=== PATIENT | female | born 1960 | race Caucasian/White ===

== ENCOUNTER → 2020-05-13 10:25 | Outpatient (BNVA) | payer MEDICAID, SELFPAY | PROVIDERS: PCP Nurse Practitioner Family; Referring Provider Nurse Practitioner Family; Visit Provider Anesthesiology | DX: G89.4 Chronic pain syndrome (principal); M17.0 Bilateral primary osteoarthritis of knee | CPT/HCPCS: 99213 ==

== ENCOUNTER 2020-05-20 11:00 | Outpatient (REF) | payer MEDICAID, SELFPAY ==
--- NOTE | 2020-05-20 11:10 | XR_ITS ---
EXAMINATION: XR FOOT, LEFT CLINICAL INFORMATION: Left heel pain COMPARISON: None TECHNIQUE: AP, lateral, and oblique views of the left foot. FINDINGS: Osseous mineralization is normal. There is no evidence of focal erosion. Prominent plantar and posterior calcaneal spurs are noted. The bones and joints are otherwise unremarkable. No evidence of acute fracture or dislocation. No evidence of soft tissue calcifications. IMPRESSION: Prominent left calcaneal spurs. No acute osseous abnormality in the left foot.
== END 2020-05-20 11:01 | disposition home or self-care (01) ==
LOC: HO.XRAY 11:00
PROVIDERS: Visit Provider Podiatrist
DX: M79.672 Pain in left foot (principal)
CPT/HCPCS: 73630

== ENCOUNTER 2020-06-23 05:29 | Outpatient (REF) | payer MEDICAID, SELFPAY ==
--- NOTE | 2020-06-23 07:28 | FL_ITS ---
EXAMINATION: XR FLUOROSCOPY WITH IMAGES CLINICAL INFORMATION: Primary osteoarthritis of the knee. COMPARISON: 01/11/2019 TECHNIQUE: Fluoroscopy performed by Dr. Arenas. Fluoroscopy time: 0.1 minutes DAP: 1.39 Gycm2 Images: 2 FINDINGS: Imaging of the left knee. There are 2 radiopaque needles projecting over the distal femur. There is a single radiopaque needle projecting over the proximal tibia. Degenerative changes are noted at the knee. FL/FL guidance in treatment room IMPRESSION: Fluoroscopic guidance for intervention at the left knee. Please refer to procedural report for further information.
== END 2020-06-23 05:30 | disposition home or self-care (01) ==
LOC: HO.RADIR 05:29
PROVIDERS: Visit Provider Anesthesiology
DX: M17.0 Bilateral primary osteoarthritis of knee (principal)
CPT/HCPCS: 64454

== ENCOUNTER → 2020-06-29 13:39 | Outpatient (BNVA) | payer MEDICAID, SELFPAY | PROVIDERS: PCP Internal Medicine; Visit Provider Anesthesiology | DX: Z76.89 Persons encountering health services in other specified circumstances (principal) | CPT/HCPCS: 99212 ==

== ENCOUNTER 2020-07-14 07:00 | Outpatient (REF) | payer MEDICAID, SELFPAY ==
--- NOTE | 2020-07-14 07:36 | FL_ITS ---
EXAMINATION: XR FLUOROSCOPY WITH IMAGES CLINICAL INFORMATION: Unilateral primary osteoarthritis left knee COMPARISON: None. TECHNIQUE: Fluoroscopy performed by Louann Arenas NP. Fluoroscopy time: 0.2 minutes DAP: 6 1.59 Gycm2 Images: 2 FINDINGS: There are 2 needles medial and lateral to the distal femur and a solitary needle along the medial proximal tibial cortex for pain management purposes. There is moderate loss of tricompartment joint space with moderate periarticular spurring. The soft tissues are normal. FL/FL guidance in treatment room IMPRESSION: Fluoroscopy was provided for pain management Department for left knee treatment.
== END 2020-07-14 07:01 | disposition home or self-care (01) ==
LOC: HO.RADIR 07:00
PROVIDERS: Visit Provider Anesthesiology
DX: M17.12 Unilateral primary osteoarthritis, left knee (principal)
CPT/HCPCS: J3300

== ENCOUNTER → 2020-08-19 11:20 | Outpatient (BNVA) | payer MEDICAID, SELFPAY | PROVIDERS: PCP Nurse Practitioner Family; Visit Provider Anesthesiology | DX: M17.12 Unilateral primary osteoarthritis, left knee (principal) | CPT/HCPCS: 99212 ==

== ENCOUNTER 2020-10-01 09:07 | Outpatient (REF) | payer MEDICAID, SELFPAY ==
--- NOTE | 2020-10-01 10:00 | EMG_ITS ---
Bilateral tibial and peroneal motor and sensory studies were performed. Bilateral sural sensory studies were performed. Tibial H reflexes were obtained and paraspinal muscles were tested. IMPRESSION: Other than mild right nonlocalizing peroneal motor neuropathy, no significant finding was noted on this study. MD JOSE Rodriges/NAZ / [id number]
== END 2020-10-01 09:08 | disposition home or self-care (01) ==
LOC: HO.NEURO 09:07
PROVIDERS: Visit Provider Anesthesiology
DX: R29.898 Other symptoms and signs involving the musculoskeletal system (principal)
CPT/HCPCS: 95886; 95911

== ENCOUNTER → 2020-10-14 08:29 | Outpatient (BNVA) | payer MEDICAID, SELFPAY | PROVIDERS: PCP Nurse Practitioner Family; Visit Provider Anesthesiology | DX: M17.12 Unilateral primary osteoarthritis, left knee (principal); G89.4 Chronic pain syndrome; R29.898 Other symptoms and signs involving the musculoskeletal system; Z79.899 Other long term (current) drug therapy | CPT/HCPCS: 99212 ==

== ENCOUNTER 2020-10-28 09:48 | Outpatient (REF) | payer MEDICAID, SELFPAY ==
--- NOTE | ~2020-10-28 | US_ITS ---
EXAMINATION: NONINVASIVE ASSESSMENT OF THE ARTERIES OF BOTH LOWER EXTREMITIES WITH PVR EXAM AND BILATERAL LOWER EXTREMITY DUPLEX CLINICAL INFORMATION: Other symptoms and signs involving the musculoskeletal system TECHNIQUE: Bilateral duplex Doppler techniques with wave form analysis and measurement of velocities in the common femoral, profunda femoral, superficial femoral, popliteal and tibial arteries. The study was performed only at rest. COMPARISON: None FINDINGS: a) AT REST: RIGHT LEG: Right direct duplex Doppler findings: * Common femoral artery: 143 cm/s, Diastolic flow reversal: Yes * Superficial femoral artery (proximal, mid, distal): 110, 135 and 90 cm/s, Diastolic flow reversal: Yes * Popliteal artery: 44 cm/s, Diastolic flow reversal: Yes * Posterior tibial artery: The cm/s, Diastolic flow reversal: No. Biphasic. LEFT LEG: Left direct duplex Doppler findings: * Common femoral artery: 130 cm/s, Diastolic flow reversal: Yes * Superficial femoral artery (proximal, mid, distal): 108, 112 and 98 cm/s, Diastolic flow reversal: Yes * Popliteal artery: 100 cm/s, Diastolic flow reversal: Yes * Posterior tibial artery: 64 cm/s, Diastolic flow reversal: Yes US/US arterial duplex LE BI IMPRESSION: There is no evidence of any hemodynamically significant lower extremity arterial disease by duplex Doppler criteria at rest. There is a loss of normal triphasic waveform in the right posterior tibial artery. The exam is otherwise unremarkable.
== END 2020-10-28 09:49 | disposition home or self-care (01) ==
LOC: HO.US 09:48
PROVIDERS: Visit Provider Anesthesiology
DX: I73.9 Peripheral vascular disease, unspecified (principal); R29.898 Other symptoms and signs involving the musculoskeletal system
CPT/HCPCS: 93925

== ENCOUNTER → 2020-11-18 14:25 | Outpatient (BNVA) | payer MEDICAID, SELFPAY | PROVIDERS: PCP Nurse Practitioner Family; Visit Provider Anesthesiology ==

== ENCOUNTER 2020-12-01 14:40 | Outpatient (REF) | payer MEDICAID, SELFPAY ==
--- NOTE | ~2020-12-01 | MR_ITS ---
EXAMINATION: MR LUMBAR SPINE WITHOUT CONTRAST CLINICAL INFORMATION: Spondylosis. Bilateral leg pain, numbness, weakness. COMPARISON: None TECHNIQUE: MRI of the lumbar spine was obtained using routine sequences without contrast. FINDINGS: VERTEBRAL BODIES AND PARASPINAL STRUCTURES: Normal vertebral body alignment. The lumbar lordosis is maintained. No acute fracture or subluxation. No loss of vertebral body height. Loss of intervertebral disc height with disc desiccation at T12-L1 and L1-L2. The remaining intervertebral disks are well hydrated. No abnormal marrow signal to suggest acute osseous injury. The visualized paraspinal soft tissues are unremarkable. CONUS MEDULLARIS AND CAUDA EQUINA: Normal, terminating at the level of the L1-L2 intervertebral disc. SPINAL LEVELS: T12-L1: Small posterior central disc protrusion without significant central canal or neural foraminal stenosis. L1-L2: Mild broad-based disc bulge, asymmetric to the left with mild bilateral facet arthropathy and thickening of ligamentum flavum. No significant central canal or neural foraminal stenosis. L2-L3: No significant disc bulge. No central canal or neural foraminal stenosis. L3-L4: No significant disc bulge. No central canal or neural foraminal stenosis. L4-L5: No significant disc bulge. Prominent bilateral facet arthropathy without significant central canal or neural foraminal stenosis. L5-S1: No significant disc bulge. Prominent bilateral facet arthropathy with mild left neural foraminal stenosis. MR/MR lumbar spine wo con IMPRESSION: 1. Mild degenerative disc disease at T12-L1 and L1-L2 with small disc bulges. No significant central canal or neural foraminal stenosis. 2. L5-S1 prominent bilateral facet arthropathy with mild left neural foraminal stenosis.
== END 2020-12-01 14:41 | disposition home or self-care (01) ==
LOC: HO.MRI 14:40
PROVIDERS: Visit Provider Anesthesiology
DX: M47.816 Spondylosis without myelopathy or radiculopathy, lumbar region (principal)
CPT/HCPCS: 72148

== ENCOUNTER → 2020-12-24 14:18 | Outpatient (BNVA) | payer MEDICAID, SELFPAY | PROVIDERS: PCP Nurse Practitioner Family; Visit Provider Anesthesiology | DX: M17.12 Unilateral primary osteoarthritis, left knee (principal); M47.816 Spondylosis without myelopathy or radiculopathy, lumbar region; G89.4 Chronic pain syndrome; R29.898 Other symptoms and signs involving the musculoskeletal system | CPT/HCPCS: 99212 ==

== ENCOUNTER → 2021-02-17 10:48 | Outpatient (BNVA) | payer MEDICAID, SELFPAY | PROVIDERS: PCP Nurse Practitioner Family; Visit Provider Anesthesiology | DX: R29.898 Other symptoms and signs involving the musculoskeletal system (principal); G89.4 Chronic pain syndrome; M47.816 Spondylosis without myelopathy or radiculopathy, lumbar region; M17.12 Unilateral primary osteoarthritis, left knee | CPT/HCPCS: 99212 ==

== ENCOUNTER 2021-03-01 10:00 | Outpatient (RCR) | payer MEDICAID, SELFPAY ==
--- NOTE | 2021-01-27 11:07 | MHC.PT.EP ---
[facility] [place] Office [place] Office [place] Office [address] Oksana Blackwell [address] [phone] F: [phone] F: [phone] F: [phone] F: [phone] Physical Therapy Plan of Care Date of Evaluation: Date of Surgery: NA Diagnosis: SPONDYLOSIS LUMBAR REGION CHRONIC PAIN SYNDROME OA B KNEES Assessment: Pt IS 60 YO F REFERRED TO PT FROM DR SAUCEDO WITH CHRONIC PAIN SYNDROME, LUMBAR SPONDYLOSIS, AND KNEE PAIN. PRESENTS WITH INDICATORS OF PSYCHOSOMATIC SXS (SIGNIF LIMP/ANTALGIC GT PATTERN WITH SEEMINGLY INABLILITY TO BEND KNEES BUT ABLE TO IMPROVE WITH ED RE ABILITY TO BEND KNEES WHEN SITTING, BUT THEN SIGNIF LIMITATION IN L KNEE FLEX (45 DEGREES) IN SUP, ALSO LIMITED TRUNK ROTATION WHEN BEING EVALUATED, BUT NOTED TO TWIST AT LSPINE MOVING WW). Pt REPORTS HER SON HELPS HER WITH ADLS (?NEED FOR TICKET SPECULATOR...SHE REPORTS WORKING ON THIS/DISABILITY). Pt MAY HAVE SOME BENEFIT FROM PT TO HELP IMPROVE OVERALL STRENGTH AND FLEXIBILITY. HOWEVER, IF MUCH OF HER SXS ARE PSYCHOSOMATIC IN NATURE, SHE MAY NOT HAVE SIGNIF BENEFIT FROM PT. Frequency and Duration: The patient will be seen 2X/WK X 6 WKS (MD RECOMMENDED 12 VISITS) Short Term Goals: 1. NORMALIZED GT PATTERN (LESS LIMP) WITH LRAD 2. I HEP WITH DC EX PLAN Shelter Goals: 1. DECREASED LB AND KNEE PAIN AT LEAST 50% WITH ADLS 2. INCREASED ROM B KNEE TO AT LEAST 100 DEGREES Treatment Plan: Modalities to reduce pain, spasms and effusion. Manual therapy to restore motion and function. Therapeutic exercise to improve strength and flexibility. Neuromuscular re-education for posture and balance. Therapeutic activities to return to functional activities of daily living. Electronically signed by: YENI RIBEIRO PT Please sign and return to therapist. Thank you for your referral.
--- NOTE | 2021-06-11 14:09 | MHC.PT.DC ---
[facility] [place] Office [place] Office [place] Office [address] Oksana Blackwell [address] [phone] F: [phone] F: [phone] F: [phone] F: [phone] Physical Therapy Discharge Report Diagnosis: SPONDYLOSIS LUMBAR REGION CHRONIC PAIN SYNDROME OA B KNEES Date of Surgery: NA Date of Evaluation: 01/27/21 Date of Discharge: 06/11/21 Treatments to Date: 6 Cancellations to Date: No Shows to Date: Discharge Status: Visit Non-compliance Discharge Summary: Pt LAST SEEN ON 03/01/21 WITHOUT CANE, REPORTING BACK FEELING OK. PER ASSESSMENT AT THAT SESSION :'NEEDS VERBAL AND TACTILE CUES FOR PROPER FORM/HOLD TIME WITH EX/STRETCHES, C/O KNEE PAIN WITH HS STRETCH'. Pt THEN NO SHOWED LAST 2 SCHEDULED VISITS Electronically signed by: YENI RIBEIRO PT Please sign and return to therapist. Thank you for your referral.
== END 2021-06-11 14:10 | disposition home or self-care (01) ==
LOC: HO.PT 10:00
PROVIDERS: PCP Nurse Practitioner Family; Visit Provider Anesthesiology
DX: M47.816 Spondylosis without myelopathy or radiculopathy, lumbar region (principal); G89.4 Chronic pain syndrome; M17.0 Bilateral primary osteoarthritis of knee
CPT/HCPCS: 97110; 97116; 97162; 97530

== ENCOUNTER → 2021-03-10 10:42 | Outpatient (BNVA) | payer MEDICAID, SELFPAY | PROVIDERS: PCP Nurse Practitioner Family; Visit Provider Anesthesiology | DX: G89.4 Chronic pain syndrome (principal); R29.898 Other symptoms and signs involving the musculoskeletal system; M17.12 Unilateral primary osteoarthritis, left knee; M47.816 Spondylosis without myelopathy or radiculopathy, lumbar region; M15.9 Polyosteoarthritis, unspecified | CPT/HCPCS: 99212 ==

== ENCOUNTER → 2021-03-16 12:50 | Outpatient (BNVA) | payer MEDICAID, SELFPAY | PROVIDERS: PCP Nurse Practitioner Family; Visit Provider Nurse Practitioner Family | DX: M17.0 Bilateral primary osteoarthritis of knee (principal); M47.816 Spondylosis without myelopathy or radiculopathy, lumbar region; G89.4 Chronic pain syndrome; I73.9 Peripheral vascular disease, unspecified; Z79.899 Other long term (current) drug therapy | CPT/HCPCS: 99212 ==

== ENCOUNTER 2021-04-20 09:31 | Outpatient (REF) | payer MEDICAID, SELFPAY ==
--- NOTE | ~2021-04-20 | MM_ITS ---
EXAMINATION: MM SCREENING DIGITAL BREAST TOMOSYNTHESIS, BILATERAL CLINICAL INFORMATION: Screening. Asymptomatic. The lifetime risk of breast cancer based on the Tyrer-Cuzick Model is 6.9%. COMPARISON: Mammography: February 03, 2016 and studies dating back to March 03, 2011 TECHNIQUE: Digital breast tomosynthesis is performed in both the craniocaudal and mediolateral oblique views along with computer-aided detection (CAD). Synthesized 2D images are generated from the tomosynthesis. FINDINGS: There are scattered areas of fibroglandular density (ACR BI-RADS breast composition Category b). There are no significant masses, abnormal calcifications, or other abnormalities. MM/MM tomosynthesis screening BI IMPRESSION: There are no significant changes from prior study. ASSESSMENT: BI-RADS 1: Negative RECOMMENDATION: Routine annual mammography screening. This patient's information was entered into a reminder system with a target due date for their next mammogram.
== END 2021-04-20 09:32 | disposition home or self-care (01) ==
LOC: HO.MAMMO 09:31
PROVIDERS: Visit Provider Nurse Practitioner Family
DX: Z12.31 Encounter for screening mammogram for malignant neoplasm of breast (principal)
CPT/HCPCS: 77063; 77067

== ENCOUNTER 2021-04-27 07:46 | Outpatient (REF) | payer MEDICAID, SELFPAY ==
--- NOTE | ~2021-04-27 | FL_ITS ---
EXAMINATION: XR FLUOROSCOPY WITH IMAGES CLINICAL INFORMATION: Arthritis of the knee COMPARISON: None. TECHNIQUE: Fluoroscopy performed by Louann Arenas NP. Fluoroscopy time: 0.1 minutes DAP: 1 Gycm2 Images: 4 FINDINGS: Images demonstrate needle placement adjacent to the bilateral medial proximal tibial metaphysis. There is bilateral knee arthritis, left greater than right. FL/FL guidance in treatment room IMPRESSION: Fluoroscopic guidance for pain management procedure.
== END 2021-04-27 07:47 | disposition home or self-care (01) ==
LOC: HO.RADIR 07:46
PROVIDERS: Visit Provider Anesthesiology
DX: M17.0 Bilateral primary osteoarthritis of knee (principal); M47.816 Spondylosis without myelopathy or radiculopathy, lumbar region; G89.4 Chronic pain syndrome
CPT/HCPCS: 64450

== ENCOUNTER → 2021-05-05 09:29 | Outpatient (BNVA) | payer MEDICAID, SELFPAY | PROVIDERS: PCP Nurse Practitioner Family; Visit Provider Anesthesiology | DX: M15.9 Polyosteoarthritis, unspecified (principal); M47.816 Spondylosis without myelopathy or radiculopathy, lumbar region; M17.0 Bilateral primary osteoarthritis of knee; G89.4 Chronic pain syndrome | CPT/HCPCS: 99212 ==

== ENCOUNTER 2021-05-20 17:54 | Emergency (ER) | payer MEDICAID, SELFPAY ==
--- NOTE | ~2021-05-20 | CT_ITS ---
EXAMINATION: CT HEAD WITHOUT CONTRAST CT CERVICAL SPINE WITHOUT CONTRAST CLINICAL INFORMATION: Neck pain and right-sided headache. COMPARISON: No similar priors. TECHNIQUE: Contiguous axial imaging was performed from the skull base to vertex without intravenous administration of contrast. Contiguous axial imaging was performed from the upper chest through the skull base without intravenous administration of contrast. Coronal and sagittal reformats were obtained at the acquisition workstation. This CT examination was performed using dose optimization techniques as appropriate, variously including the following: *Automated exposure control *Adjustment of mA and/or kV according to patient size (this includes techniques or standardized protocols for targeted exams where dose is matched to indication/reason for exam; i.e. extremities or head) *Use of iterative reconstruction technique DLP: 333 mGy-cm FINDINGS: Head: There is no evidence of acute intracranial hemorrhage or edematous territorial infarction. There is no abnormal attenuation within the brain parenchyma. Maurer-white matter differentiation is preserved. The ventricles are normal in size and configuration. No evidence for obstructive hydrocephalus. No abnormal mass effect or midline shift. No extra-axial fluid collections. No acute soft tissue or osseous abnormalities. The mastoid air cells and paranasal sinuses are clear. Cervical Spine: The atlantooccipital and atlantoaxial articulations remain well aligned. Straightening of the normal cervical lordosis. Otherwise, there is anatomic alignment of the vertebral bodies and posterior elements. No evidence of acute fracture or subluxation. Mild multilevel cervical spondylosis, more prominent at C6-C7. Mild uncovertebral hypertrophy without significant neural foraminal encroachment or central canal stenosis. Degenerative changes are also identified within the atlantodental joint. There is no prevertebral soft tissue swelling. The thyroid gland and remaining cervical soft tissues are normal in appearance. Subpleural calcification in the right upper lobe with associated thickening/scarring. Clear left apex. CT/CT cervical spine wo con IMPRESSION: No acute intracranial pathology. No acute cervical findings. Mild cervical spondylosis as above.
[2021-05-20 19:10] VITALS: BP 143/92; PULSE 75; RESP 18; TEMP 37.1; O2SAT 95; BMI 29.2
--- NOTE | 2021-05-20 19:42 | ED_ITS ---
HPI - General Adult General Chief complaint: Neck Pain/Injury Stated complaint: neck pain Source: patient Mode of arrival: ambulatory Limitations: no limitations History of Present Illness HPI narrative: 60-year-old female with history of chronic pain syndrome and generalized arthritis and diabetes presents to the ED for evaluation of resolved headache. Patient states between 17:00 and 17:30 today she had right-sided headache radiating from right posterior neck. Patient denies any photophobia, change in vision, nausea, vomiting, chest pain, shortness of breath, fever, chills, neck stiffness, chest pain, shortness of breath, facial droop, slurred speech, paralysis of extremities, loss of vision, or change in vision. Patient states presently she has no headache. Patient just wants to be evaluated. Patient denies any recent head trauma. Related Data Previous Rx's Medication Instructions Recorded triamcinolone acetonide 0.5 % 1 appl TOPICAL BID #15 g 03/16/21 topical cream celecoxib 200 mg capsule (Celebrex) 200 mg PO BID 30 Days #60 cap 05/05/21 [id number]-edydoajjnkfye-[id number] 1 cap PO Q6H PRN 5 Days #20 cap 05/20/21 50 mg-300 mg-40 mg capsule (Fioricet) Allergies Allergy/AdvReac Type Severity Reaction Status Date / Time codeine Allergy unknown Verified 05/05/21 09:51 Review of Systems Review of Systems: Yes all other systems are reviewed and are negative Constitutional: Constitutional: Reports as per HPI, Reports no additional constitutional complaints and Reports headache(s) (gone) Eyes: Eyes: Reports as per HPI and Reports no additional eye complaints ENT: Reports system reviewed and no additional complaints, except as documented, Reports as per HPI and Reports headache(s) (gone) Cardiovascular: Cardiovascular: Reports as per HPI and Reports no additional cardiovascular complaints Respiratory: Respiratory: Reports as per HPI and Reports no additional respiratory complaints Gastrointestinal: Gastrointestinal: Reports as per HPI and Reports no additional gastrointestinal complaints Genitourinary: Genitourinary: Reports no additional female genitourinary complaints and Reports as per HPI Musculoskeletal: Musculoskeletal: Reports no additional musculoskeletal complaints and Reports as per HPI Integumentary/Breasts: Skin/Breast: Reports system reviewed and no additional complaints, except as docu and Reports as per HPI Neurologic: Reports system reviewed and no additional complaints, except as documented, Reports as per HPI and Reports headache(s) (gone) Psychiatric: Psychiatric: Reports no additional psychiatric complaints and Reports as per HPI [facility] Past Medical History Medical History (Updated 05/21/21 @ 00:01 by Lesa Grayson) Arterial insufficiency of lower extremity Chronic pain syndrome Generalized osteoarthritis Osteoarthritis of knees, bilateral Osteoarthritis of left knee Severe arterial insufficiency of right lower extremity Spondylosis of lumbar spine Weakness of both lower extremities Weakness of left lower extremity Surgical History (System 10/14/20 @ 10:30 by Nikki Jackson) Hx laparoscopic cholecystectomy Social History Social History (System 10/14/20 @ 10:30 by Nikki Jackson) Advance Directives: No Advance Directives Information Provided: No Patient : No Physical Exam Vital Signs: Vital Signs: Last Vital Signs Temp 98.7 F 05/20/21 19:10 Pulse 63 05/20/21 21:59 Resp 15 05/20/21 21:59 BP 139/75 05/20/21 21:59 Pulse Ox 95 05/20/21 21:59 Body Mass Index 29.2 Const: General: cooperative, healthy appearing, comfortable, no acute distress, well developed, alert and awake Orientation/consciousness: patient oriented x3 HENMT: Head: Yes normal to inspection, Yes No palpable skull fracture present, Yes normocephalic, Yes atraumatic, Yes abrasion, No Acrocyanosis present, No Oliveira's sign, No contusion, No cranial bruits, No hematoma, No laceration, No occipital foramen tenderness, No palpable skull fracture, No raccoon eyes, No scalp lesion, No scalp tenderness, No Temporal artery tenderness present and No periorbital ecchymosis Ears: hearing grossly normal bilaterally, external ears normal, TM's normal bilaterally, EAC's normal, mastoids normal and no periauricular adenopathy Throat: Yes posterior oropharynx normal, Yes tonsils normal and Yes uvula midline Eyes: Other: Negative nystagmus Neck: Neck: Yes normal visual inspection and Yes full ROM Chest: Chest palpation & inspection: normal inspection of the chest and normal palpation of entire chest wall Resp: Effort & Inspection: normal respiratory effort and able to speak in complete sentences Auscultation: clear to auscultation bilaterally Cardio: Jugular venous distension: no JVD Heart sounds: S1 normal heart sound present and S2 normal heart sound present : General: No CVA tenderness and Yes no CVA tenderness Back/Spine/Pelvis: Back: no CVA tenderness, No CVA tenderness and No back tenderness Skin: General skin exam: no rashes or lesions noted and elasticity normal Neuro: General: patient oriented x3, gait normal and CN's II-XI intact bilaterally Cranial nerves: Yes CN's II-XII intact bilaterally Extrem: General: Yes normal to inspection and Yes full ROM Psych: Appearance: grossly normal, well kempt and not disheveled Course Course Course Narrative: Patient presently asymptomatic but requesting pain medication to prevent headache from coming back. will ordered head CTs scan and cervical spine to check for arthritis. Patient is not in any distress. Not Suspecting any cardiac etiology. Patient vital signs are stable. No labs indicated. History physical exam does not indicate meningitis, temporal artertitis, or stroke. Differential tension headache versus arthritic neck pain Reevaluation(s) Reevaluation #1: Patient's head CT scan came back normal. Patient's cervical spine shows spondylosis and degenerative disc disease. Patient will be discharged with pain medication. Patient is safe for discharge. Patient is not in any distress. Neuro exam is intact Time: 21:21 Medical Decision Making MDM Narrative Medical decision making narrative: Headache Lab Data Labs: Lab Results 05/20/21 Range/Units 21:54 POC Glucose 131 H (60-115) mg/dL Discharge Plan Discharge Clinical Impression: Headache, Cervical radiculopathy Patient Disposition: Home, Self-Care Instructions: Cervical Radiculopathy (ED), General Headache (ED) Additional Instructions: La tomograf?a computarizada de means manish result? normal y negativa para sangrado o accidente cerebrovascular. La tomograf?a computarizada de la columna cervical muestra artritis que contribuye a means dolor. El diagn?stico diferencial es cefalea tensional versus radiculopat?a cervical. Ya est? tomando TONI contin?e tomando en casa. Tambi?n se le recetar? Fioricet. Regrese al servicio de urgencias si tiene dificultad para hablar, declive facial, p?rdida de la visi?n, dolor de manish intenso, n?useas, dolor de bryn intenso, v?mitos, par?lisis de las extremidades, dolor en el pecho, dificultad para respirar, mareos o cualquier otro s?ntoma preocupante. Harman un seguimiento con el proveedor de atenci?n primaria. Prescriptions: New eqpbqagjjc-zfduyeysuqfxm-amfu [Fioricet] 50-300-40 mg capsule 1 cap PO Q6H PRN (Reason: pain) 5 Days Qty: 20 RF: 0 No Action celecoxib [Celebrex] 200 mg capsule 200 mg PO BID 30 Days Qty: 60 RF: 12 triamcinolone acetonide 0.5 % cream 1 appl topical BID Qty: 15 RF: 0 Interventions: ED Discharge Assessment Last Done: 05/20/21 22:23 Discharge Date/Time: 05/20/21 22:29 Print Language: [place]
[2021-05-20] MEDS: Butalb/Acetamin/Caff 50/325/40 TABLET 1 TAB PO (21:57)
[2021-05-20 21:58] LABS: Glucose, Whole Blood 131 mg/dL (60-115)
[2021-05-20 21:59] VITALS: BP 139/75; PULSE 63; RESP 15; O2SAT 95
== END 2021-05-20 22:29 | disposition home or self-care (01) ==
PROVIDERS: Emergency Provider Emergency Medicine
DX: M47.22 Other spondylosis with radiculopathy, cervical region (principal); M50.30 Other cervical disc degeneration, unspecified cervical region; R51.9 Headache, unspecified; G89.4 Chronic pain syndrome; E11.9 Type 2 diabetes mellitus without complications
CPT/HCPCS: 70450; 72125; 82947; 99284

== ENCOUNTER 2021-06-06 16:51 | Emergency (ER) | payer MEDICAID, SELFPAY ==
[2021-06-06 17:01] VITALS: BP 154/72; PULSE 67; RESP 18; TEMP 36.6; O2SAT 99; BMI 29.2
[2021-06-06 19:26] LABS: Glucose, Whole Blood 130 mg/dL (60-115)
== END 2021-06-06 21:19 | disposition left against medical advice (07) ==
PROVIDERS: Emergency Provider Emergency Medicine
DX: M54.2 Cervicalgia (principal); E11.9 Type 2 diabetes mellitus without complications
CPT/HCPCS: 82947; 99282

== ENCOUNTER 2021-06-07 11:53 | Emergency (ER) | payer MEDICAID, SELFPAY ==
--- NOTE | ~2021-06-07 | XR_ITS ---
EXAMINATION: XR CHEST CLINICAL INFORMATION: Pain COMPARISON: 07/10/2013 TECHNIQUE: Frontal view of the chest was obtained. FINDINGS: Rotated study. The lungs are well expanded. There is no focal consolidation, edema, or effusion. No pneumothorax. The cardiomediastinal silhouette is within normal limits. No acute osseous abnormality. XR/XR chest 1V IMPRESSION: No acute pulmonary finding.
--- NOTE | 2021-06-07 11:58 | ECG_ITS ---
Test Reason : ABNORMAL EKG Blood Pressure : / mmHG Vent. Rate : 056 BPM Atrial Rate : 056 BPM P-R Int : 152 ms QRS Dur : 096 ms QT Int : 406 ms P-R-T Axes : 044 016 -01 degrees QTc Int : 391 ms Sinus bradycardia Nonspecific T wave abnormality Abnormal ECG T-wave inversion in Anterior leads is new Referred By: Generic ED Physician Electronically Signed By:VIOLETA CROSS MD
[2021-06-07 12:53] VITALS: BP 137/75; PULSE 60; RESP 18; TEMP 36.1; O2SAT 96; BMI 35.4
--- NOTE | 2021-06-07 14:16 | ED.RECABL ---
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 Mode of arrival: ambulatory Limitations: no limitations History of Present Illness complaint: other (EKG abnormality) Initial visit (ago): hour(s) (couple ) Initial visit for: other (R sided shoulder pain and headache) Returns today for: other (told to come by PCP for t wave inversions on EKG) Symptoms since prior visit: no new symptoms Context: other (instructed to come) Associated symptoms: other (R posterior shoulder pain, headache frontal mild - shoulder pain x 3 days) Related Data Previous Rx's Medication Instructions Recorded triamcinolone acetonide 0.5 % 1 appl TOPICAL BID #15 g 03/16/21 topical cream celecoxib 200 mg capsule (Celebrex) 200 mg PO BID 30 Days #60 cap 05/05/21 kvyqqefzsq-uzeuwjtljwqho-skpxdtba 1 cap PO Q6H PRN 5 Days #20 cap 05/20/21 50 mg-300 mg-40 mg capsule (Fioricet) cyclobenzaprine 10 mg tablet 10 mg PO TID PRN #14 tab 06/07/21 Allergies Allergy/AdvReac Type Severity Reaction Status Date / Time codeine Allergy unknown Verified 05/05/21 09:51 Review of Systems Review of Systems: Constitutional : No Weight loss, No Fever, No Chills, No Fatigue, No Malaise ENT/Mouth : No sore throat, No Rhinorrhea Eyes: No Eye Pain, No Swelling, No Redness Cardiovascular : No Chest Pain, No SOB, No Dyspnea on Exertion, No Orthopnea, No Edema, No Palpitations Respiratory : No Cough, No Sputum, No Wheezing Gastrointestinal : No Nausea, No Vomiting, No Diarrhea, No Constipation, No abdominal Pain, No Hematochezia, No Melena Genitourinary : No Dysuria, No Urinary Frequency, No Hematuria, Musculoskeletal : pos joint pain, No Myalgias, No Joint Swelling Skin : No Skin Lesions, No rash Neuro : No Weakness, No Numbness, No Dizziness, pos Headache Psych : No Anxiety/Panic, No Depression Heme/Lymph: No Bruising, No Bleeding,No Lymphadenopathy Endocrine : No Polyuria, No Polydipsia All other systems reviewed and are negative [facility] Past Medical History Attestation statement: The following information was validated with the patient. Medical History Arterial insufficiency of lower extremity Chronic pain syndrome Generalized osteoarthritis Osteoarthritis of knees, bilateral Osteoarthritis of left knee Severe arterial insufficiency of right lower extremity Spondylosis of lumbar spine Weakness of both lower extremities Weakness of left lower extremity Surgical History Hx laparoscopic cholecystectomy Social History Social History (Updated 06/07/21 @ 14:40 by Jodi Blount DO) Patient Tobacco Use Status: Former Tobacco user Use of substances other than those prescribed or required for medical reasons: No Advance Directives: No Patient : No Physical Exam Vital Signs: Vital Signs: Last Vital Signs Temp 96.9 F 06/07/21 12:53 Pulse 60 06/07/21 12:53 Resp 18 06/07/21 12:53 BP 144/74 H 06/07/21 14:38 Pulse Ox 100 06/07/21 14:38 Body Mass Index 35.4 Appearance: Alert. Oriented X3. No acute distress. Eyes: Pupils equal, round and reactive to light. ENT: Pharynx normal. Neck: Normal inspection. Neck supple. no meningeal signs CVS: Normal heart rate and rhythm. Pulses normal. Respiratory: No respiratory distress. Breath sounds normal. Abdomen: Soft and nontender. Skin: Skin warm and dry. Normal skin color. Normal skin turgor. Extremities: No lower extremity edema. No calf ttp R posterior shoulder ttp reproduces pain distal NV intact Neuro: Oriented X 3. No motor deficit. No sensory deficit. Course Course Course Narrative: ddimer under upper limits of normal trop negative , nonspecific EKG stable for DC at this time, xray and COVID negative had to redraw chemistry paula does not want to wait will go to her PCP tomorrow - trop and ddimer negative MDM - Recheck/Abnormal Lab/Rx MDM Narrative Medical decision making narrative: 60 yo female with hx of arthritis , DM here with c/o abnormal EKG from PCP office has no CP/SOB only c/o R posterior shoulder pain worse with movements and mild frontal headache - she has no other symptoms - given new t wave inversions and this shoulder pain x 3 days will obtain trop and ddimer. Headache is mild doubt SAH or [employer] DES[employer] infection - tylenol and flexeril ordered. Dispo per results and findings. Lab Data Result diagrams: 06/07/21 15:59 06/07/21 14:49 Labs: Lab Results 06/07/21 06/07/21 06/07/21 Range/Units 15:53 15:59 15:59 WBC 11.3 H (4.8-10.8) X10*3/uL RBC 4.59 (4.20-5.50) X10*6/uL Hgb 14.6 (12.0-16.0) g/dl Hct 42.8 (37.0-47.0) % MCV 93.2 (80.0-98.0) fL MCH 31.8 (27.0-33.0) pg MCHC 34.1 (31.0-35.0) g/dl RDW 12.6 (11.0-16.0) % Plt Count 291 (160-400) X10*3/uL MPV 10.6 (9.4-12.3) fL Immature Gran % (Auto) 0.3 (0.0-0.4) % Neut % (Auto) 56.7 (45-73) % Lymph % (Auto) 35.7 (20-40) % Bullock % (Auto) 5.3 (2-11) % Eos % (Auto) 1.4 (0-4) % Baso % (Auto) 0.6 (0-2) % Lymph # (Auto) 4.0 (1.2-4.9) X10*3/uL [place] # (Auto) 0.6 (0.1-1.2) X10*3/uL Eos # (Auto) 0.2 (0.0-0.4) X10*3/uL Baso # (Auto) 0.1 (0.0-0.2) X10*3/uL Abs Immat Gran (auto) 0.03 (0.00-0.03) X10*3/uL Absolute Neuts (auto) 6.41 (2.0-8.3) x10*3/uL Absolute Nucleated RBC 0.000 (0.0-0.012) X10*3/uL Nucleated RBC % (auto) 0.0 (0.0-0.2) /100WBC D-Dimer 229 NG/ML POC Glucose (60-115) mg/dL Troponin I High Sens (<3.5-17.0) ng/L COVID-19 (TRACY) Negative (Negative) COVID-19 Clin Com See Note 06/07/21 06/07/21 Range/Units 15:59 16:47 WBC (4.8-10.8) X10*3/uL RBC (4.20-5.50) X10*6/uL Hgb (12.0-16.0) g/dl Hct (37.0-47.0) % MCV (80.0-98.0) fL MCH (27.0-33.0) pg MCHC (31.0-35.0) g/dl RDW (11.0-16.0) % Plt Count (160-400) X10*3/uL MPV (9.4-12.3) fL Immature Gran % (Auto) (0.0-0.4) % Neut % (Auto) (45-73) % Lymph % (Auto) (20-40) % [place] % (Auto) (2-11) % Eos % (Auto) (0-4) % Baso % (Auto) (0-2) % Lymph # (Auto) (1.2-4.9) X10*3/uL [place] # (Auto) (0.1-1.2) X10*3/uL Eos # (Auto) (0.0-0.4) X10*3/uL Baso # (Auto) (0.0-0.2) X10*3/uL Abs Immat Gran (auto) (0.00-0.03) X10*3/uL Absolute Neuts (auto) (2.0-8.3) x10*3/uL Absolute Nucleated RBC (0.0-0.012) X10*3/uL Nucleated RBC % (auto) (0.0-0.2) /100WBC D-Dimer NG/ML POC Glucose 103 (60-115) mg/dL Troponin I High Sens < 3.5 (<3.5-17.0) ng/L COVID-19 (TRACY) (Negative) COVID-19 Clin Com ECG Data Attestation: I personally reviewed and interpreted this ECG as follows: ECG interpretation date: 06/07/21 ECG interpretation time: 14:16 Interpretation: Rate: 56 Rhythm: sinus bradycardia [place]: normal Normal P waves. Normal NATHALIE. Normal QRS complex. ST T wave : inverted III and aVF, V1, V3, V4 no RED qTC: normal prior studies: no acute ischemia The study has been interpreted contemporaneously by me. . Discharge Plan Discharge Clinical Impression: T wave inversion in EKG Right shoulder strain Qualifiers: Encounter type: initial encounter Qualified Code(s): S46.911A - Strain of unspecified muscle, fascia and tendon at shoulder and upper arm level, right arm, initial encounter Patient Disposition: Home, Self-Care Instructions: Muscle Strain (ED) Additional Instructions: return to ED for any worsening symptoms or concerns Prescriptions: New cyclobenzaprine 10 mg tablet 10 mg PO TID PRN (Reason: muscle spasm) Qty: 14 RF: 0 No Action byycguhubl-yryfebfissifm-hqkr [Fioricet] 50-300-40 mg capsule 1 cap PO Q6H PRN (Reason: pain) 5 Days Qty: 20 RF: 0 celecoxib [Celebrex] 200 mg capsule 200 mg PO BID 30 Days Qty: 60 RF: 12 triamcinolone acetonide 0.5 % cream 1 appl topical BID Qty: 15 RF: 0 Referrals: Hai Jerez MD [Physician] - 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
[2021-06-07] MEDS: Acetaminophen 325 MG TABLET 650 MG PO (14:35)
[2021-06-07] MEDS: Cyclobenzaprine HCl 10 MG TABLET PO (14:36)
[2021-06-07 14:38] VITALS: BP 144/74; O2SAT 100
[2021-06-07 16:03] LABS: MANUAL DIFF FLAG NO
[2021-06-07 16:06] LABS: Basophils Absolute Auto 0.1 X10*3/uL (0.0-0.2); Basophils Percent Auto 0.6 % (0-2); Eosinophils Absolute Auto 0.2 X10*3/uL (0.0-0.4); Eosinophils Percent Auto 1.4 % (0-4); Hematocrit 42.8 % (37.0-47.0); Hemoglobin 14.6 g/dl (12.0-16.0); Imm Gran Abs Auto 0.03 X10*3/uL (0.00-0.03); Imm Gran Pct Auto 0.3 % (0.0-0.4); Lymphocytes Percent Auto 35.7 % (20-40); Mean Corpuscular HGB Conc 34.1 g/dl (31.0-35.0); Mean Corpuscular Hemoglobin 31.8 pg (27.0-33.0); Mean Corpuscular Volume 93.2 fL (80.0-98.0); Mean Platelet Volume 10.6 fL (9.4-12.3); Monocytes Absolute Auto 0.6 X10*3/uL (0.1-1.2); Monocytes Percent Auto 5.3 % (2-11); Neutrophils Absolute Auto 6.41 x10*3/uL (2.0-8.3); Neutrophils Percent Auto 56.7 % (45-73); Platelet Count 291 X10*3/uL (160-400); Red Blood Count 4.59 X10*6/uL (4.20-5.50); Red Cell Distribution Width 12.6 % (11.0-16.0); White Blood Count 11.3 X10*3/uL (4.8-10.8)
[2021-06-07 16:13] LABS: D Dimer 229 NG/ML
[2021-06-07 16:21] LABS: COVID-19 Test Negative (Negative); IDNOW Serial# 9DD0AD1C
[2021-06-07 16:28] LABS: Troponin-I High Sensitivity < 3.5 ng/L (<3.5-17.0)
[2021-06-07 16:51] LABS: Glucose, Whole Blood 103 mg/dL (60-115)
[2021-06-07 17:16] VITALS: BP 144/71; PULSE 55; RESP 16; O2SAT 97
[2021-06-08 07:59] LABS: Glucose, Whole Blood 106 mg/dL (60-115)
== END 2021-06-07 17:18 | disposition home or self-care (01) ==
PROVIDERS: Emergency Provider Emergency Medicine
DX: R94.31 Abnormal electrocardiogram [ECG] [EKG] (principal); S46.911A Strain of unspecified muscle, fascia and tendon at shoulder and upper arm level, right arm, initial encounter; E11.9 Type 2 diabetes mellitus without complications; X58.XXXA Exposure to other specified factors, initial encounter; Y93.9 Activity, unspecified; Y92.9 Unspecified place or not applicable; Y99.9 Unspecified external cause status; Z20.822 Contact with and (suspected) exposure to COVID-19
CPT/HCPCS: 36415; 71045; 80048; 82947; 83735; 84484; 85025; 85379; 87635; 93005; 99284

== ENCOUNTER 2021-07-15 17:34 | Emergency (ER) | payer MEDICAID, SELFPAY ==
--- NOTE | ~2021-07-15 | XR_ITS ---
EXAMINATION: XR CHEST CLINICAL INFORMATION: Fall. COMPARISON: Chest x-ray 06/07/2021 TECHNIQUE: Frontal portable view of the chest was obtained. 2104 hours FINDINGS: Lungs are clear. No pulmonary vascular congestion. There is no pleural effusion. The heart size is normal. The cardiac and mediastinal contours are normal. There are calcifications of the thoracic aorta. There are multilevel degenerative changes of dorsal spine. Surgical clips right upper quadrant of the abdomen XR/XR chest 1V IMPRESSION: Unremarkable examination.
[2021-07-15 18:55] VITALS: BP 150/72; PULSE 58; RESP 16; TEMP 37; O2SAT 97; BMI 34.4
--- NOTE | 2021-07-15 18:59 | ECG_ITS ---
Test Reason : HYPERTENSION Blood Pressure : / mmHG Vent. Rate : 052 BPM Atrial Rate : 052 BPM P-R Int : 144 ms QRS Dur : 098 ms QT Int : 432 ms P-R-T Axes : 032 026 010 degrees QTc Int : 401 ms Sinus bradycardia Nonspecific T wave changes Borderline ECG When compared with ECG of 07-JUN-2021 12:48, No significant change was found Referred By: Louann Morales Electronically Signed By:Andrew Green
[2021-07-15 19:28] LABS: Basophils Absolute Auto 0.1 X10*3/uL (0.0-0.2); Basophils Percent Auto 0.5 % (0-2); Eosinophils Absolute Auto 0.1 X10*3/uL (0.0-0.4); Eosinophils Percent Auto 1.2 % (0-4); Hematocrit 43.1 % (37.0-47.0); Hemoglobin 14.6 g/dl (12.0-16.0); Imm Gran Abs Auto 0.06 X10*3/uL (0.00-0.03); Imm Gran Pct Auto 0.5 % (0.0-0.4); Lymphocytes Absolute Auto 3.7 X10*3/uL (1.2-4.9); Lymphocytes Percent Auto 31.1 % (20-40); MANUAL DIFF FLAG NO; Mean Corpuscular HGB Conc 33.9 g/dl (31.0-35.0); Mean Corpuscular Hemoglobin 31.6 pg (27.0-33.0); Mean Corpuscular Volume 93.3 fL (80.0-98.0); Mean Platelet Volume 10.6 fL (9.4-12.3); Monocytes Absolute Auto 0.7 X10*3/uL (0.1-1.2); Monocytes Percent Auto 5.7 % (2-11); Neutrophils Absolute Auto 7.2 x10*3/uL (2.0-8.3); Platelet Count 297 X10*3/uL (160-400); Red Blood Count 4.62 X10*6/uL (4.20-5.50); Red Cell Distribution Width 12.7 % (11.0-16.0); White Blood Count 11.9 X10*3/uL (4.8-10.8)
[2021-07-15 19:42] LABS: Alanine Aminotransferase 16 U/L (0-31); Albumin Level 4.2 g/dL (3.5-5.0); Alkaline Phosphatase 112 U/L (39-117); Anion Gap 13 (12-20); Aspartate Amino Transferase 16 U/L (5-31); Bilirubin Direct 0.2 mg/dL (0.0-0.5); Bilirubin Total 0.3 mg/dL (0.0-1.0); Blood Urea Nitrogen 10 mg/dL (9-16); Calcium 9.6 mg/dL (8.4-10.2); Carbon Dioxide 23 mmol/L (22-29); Chloride 107 mmol/L (96-108); Creatinine Clr Calc Pharmacy 61.5; Estimated Glomerular Filt Rate > 60; Glucose Random 129 mg/dL (60-115); Potassium 4.1 mmol/L (3.3-5.1); Sodium 139 mmol/L (135-145); Total Protein 6.7 g/dL (6.5-8.0)
[2021-07-15 19:47] LABS: Troponin-I High Sensitivity < 3.5 ng/L (<3.5-17.0)
[2021-07-15 20:30] VITALS: BP 133/60; PULSE 55; RESP 16; O2SAT 97
[2021-07-15 20:41] LABS: Appearance Urine CLEAR; Color Urine YELLOW; Glucose Urine UA NEG (NEG); Leukocyte Esterase Urine TRACE (NEG); Nitrite Urine NEG (NEG); UACC Culture Trigger YES; Urine Blood NEG (NEG); Urine Ketones NEG (NEG); Urine Protein NEG (NEG-TRACE)
[2021-07-15 20:50] LABS: Bacteria Urine 2+ /LPF; RBC Urine 0-2 /HPF (0); UACC CULT YES
[2021-07-15 20:51] LABS: Squamous Epithelial Cell Urine TRACE /LPF
--- NOTE | 2021-07-15 20:52 | ED_ITS ---
HPI - Dizziness General Chief Complaint: Fall Stated Complaint: FALL,HIGH BP 190/100 Time Seen by Provider: 07/15/21 20:51 Source: patient Mode of arrival: ambulatory Limitations: language barrier History of Present Illness HPI Narrative: Patient history of hypertension checked her blood pressure was elevated to 190/100 felt dizzy felt knee gave out which happens often, fell on her left side complaining of pain left front chest felt dizzy prior to fall at this time patient feels better no dizziness no vertiginous feeling no focal deficit blood pressure is 143/68 Related Data Home Medications Medication Instructions Recorded Confirmed acetaminophen 500 mg tablet 1 - 2 tab PO Q6H PRN 07/12/21 07/12/21 lisinopril 20 mg tablet 1 tab PO DAILY 07/12/21 07/12/21 metformin 500 mg tablet 1 tab PO BID 07/12/21 07/12/21 omeprazole 20 mg capsule,delayed 1 cap PO DAILY 07/12/21 07/12/21 release Previous Rx's Medication Instructions Recorded triamcinolone acetonide 0.5 % 1 appl TOPICAL BID #15 g 03/16/21 topical cream celecoxib 200 mg capsule (Celebrex) 200 mg PO BID 30 Days #60 cap 05/05/21 boihhmnazj-ukovzisnhpkgv-jcwalnff 1 cap PO Q6H PRN 5 Days #20 cap 05/20/21 50 mg-300 mg-40 mg capsule (Fioricet) cyclobenzaprine 10 mg tablet 10 mg PO TID PRN #14 tab 06/07/21 Allergies Allergy/AdvReac Type Severity Reaction Status Date / Time codeine Allergy unknown Verified 05/05/21 09:51 Review of Systems Review of Systems: Yes all other systems are reviewed and are negative [facility] Past Medical History Medical History Arterial insufficiency of lower extremity Chronic pain syndrome Diabetes Generalized osteoarthritis GERD (gastroesophageal reflux disease) Osteoarthritis of knees, bilateral Osteoarthritis of left knee Severe arterial insufficiency of 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 Oriented X3. No acute distress. Eyes: PERRLA, No Nystagmus ENT: Pharynx normal. Oral Mucosa moist Neck: Normal inspection. Neck supple. CVS: Normal heart rate and rhythm. Pulses normal. Respiratory: No respiratory distress. Equal air entry bilateral, focal tenderness left 2nd 3rd rib in the front no swelling of the skin no crepitus Abdomen: Soft and nontender. Bowel sounds are present, no mass palpable, no CVA tenderness Skin: Skin warm and dry. Normal skin color. Normal skin turgor. Extremities: No lower extremity edema. No calf tenderness , bilateral knee sw elling with fusion Neuro: Oriented X 3. No motor deficit. No sensory deficit.No cerebellar signs , cranial nerves II-XII intact MDM - Dizziness MDM Narrative Medical decision making narrative: Patient transient dizziness and slight elevated blood pressure at home taking medication on daily basis at this time blood pressure stable workup negative will discharge patient home advised to continue her medications cause of dizziness likely is pain and knees with vasovagal Lab Data Attestation: I reviewed the patient's lab results. Result diagrams: 07/15/21 19:18 07/15/21 19:18 Labs: Lab Results 07/15/21 07/15/21 07/15/21 Range/Units 19:18 19:18 19:18 WBC 11.9 H (4.8-10.8) X10*3/uL RBC 4.62 (4.20-5.50) X10*6/uL Hgb 14.6 (12.0-16.0) g/dl Hct 43.1 (37.0-47.0) % MCV 93.3 (80.0-98.0) fL MCH 31.6 (27.0-33.0) pg MCHC 33.9 (31.0-35.0) g/dl RDW 12.7 (11.0-16.0) % Plt Count 297 (160-400) X10*3/uL MPV 10.6 (9.4-12.3) fL Immature Gran % (Auto) 0.5 H (0.0-0.4) % Neut % (Auto) 61.0 (45-73) % Lymph % (Auto) 31.1 (20-40) % [place] % (Auto) 5.7 (2-11) % Eos % (Auto) 1.2 (0-4) % Baso % (Auto) 0.5 (0-2) % Lymph # (Auto) 3.7 (1.2-4.9) X10*3/uL [place] # (Auto) 0.7 (0.1-1.2) X10*3/uL Eos # (Auto) 0.1 (0.0-0.4) X10*3/uL Baso # (Auto) 0.1 (0.0-0.2) X10*3/uL Abs Immat Gran (auto) 0.06 H (0.00-0.03) X10*3/uL Absolute Neuts (auto) 7.2 (2.0-8.3) x10*3/uL Absolute Nucleated RBC 0.000 (0.0-0.012) X10*3/uL Nucleated RBC % (auto) 0.0 (0.0-0.2) /100WBC Sodium 139 (135-145) mmol/L Potassium 4.1 (3.3-5.1) mmol/L Chloride 107 (96-108) mmol/L Carbon Dioxide 23 (22-29) mmol/L Anion Gap 13 (12-20) BUN 10 (9-16) mg/dL Creatinine 0.69 (0.5-1.4) mg/dL Estim Creat Clear Calc 61.5 Estimated GFR > 60 Random Glucose 129 H (60-115) mg/dL Calcium 9.6 (8.4-10.2) mg/dL Total Bilirubin 0.3 (0.0-1.0) mg/dL Direct Bilirubin 0.2 (0.0-0.5) mg/dL AST 16 (5-31) U/L ALT 16 (0-31) U/L Alkaline Phosphatase 112 (39-117) U/L Troponin I High Sens < 3.5 (<3.5-17.0) ng/L Total Protein 6.7 (6.5-8.0) g/dL Albumin 4.2 (3.5-5.0) g/dL Urine Color Urine Appearance Urine pH (5.0-8.0) Ur Specific [place] (1.005-1.025) Urine Protein (NEG-TRACE) MG/DL Urine Glucose (UA) (NEG) MG/DL Urine Ketones (NEG) MG/DL Urine Blood (NEG) Urine Nitrite (NEG) Ur Leukocyte Esterase (NEG) Urine RBC (0) /HPF Urine WBC (0-4) /HPF Ur Squamous Epith Cells /LPF Urine Bacteria /LPF 07/15/21 Range/Units 20:34 WBC (4.8-10.8) X10*3/uL RBC (4.20-5.50) X10*6/uL Hgb (12.0-16.0) g/dl Hct (37.0-47.0) % MCV (80.0-98.0) fL MCH (27.0-33.0) pg MCHC (31.0-35.0) g/dl RDW (11.0-16.0) % Plt Count (160-400) X10*3/uL MPV (9.4-12.3) fL Immature Gran % (Auto) (0.0-0.4) % Neut % (Auto) (45-73) % Lymph % (Auto) (20-40) % [place] % (Auto) (2-11) % Eos % (Auto) (0-4) % Baso % (Auto) (0-2) % Lymph # (Auto) (1.2-4.9) X10*3/uL [place] # (Auto) (0.1-1.2) X10*3/uL Eos # (Auto) (0.0-0.4) X10*3/uL Baso # (Auto) (0.0-0.2) X10*3/uL Abs Immat Gran (auto) (0.00-0.03) X10*3/uL Absolute Neuts (auto) (2.0-8.3) x10*3/uL Absolute Nucleated RBC (0.0-0.012) X10*3/uL Nucleated RBC % (auto) (0.0-0.2) /100WBC Sodium (135-145) mmol/L Potassium (3.3-5.1) mmol/L Chloride (96-108) mmol/L Carbon Dioxide (22-29) mmol/L Anion Gap (12-20) BUN (9-16) mg/dL Creatinine (0.5-1.4) mg/dL Estim Creat Clear Calc Estimated GFR Random Glucose (60-115) mg/dL Calcium (8.4-10.2) mg/dL Total Bilirubin (0.0-1.0) mg/dL Direct Bilirubin (0.0-0.5) mg/dL AST (5-31) U/L ALT (0-31) U/L Alkaline Phosphatase (39-117) U/L Troponin I High Sens (<3.5-17.0) ng/L Total Protein (6.5-8.0) g/dL Albumin (3.5-5.0) g/dL Urine Color YELLOW Urine Appearance CLEAR Urine pH 6.0 (5.0-8.0) Ur Specific [place] 1.010 (1.005-1.025) Urine Protein NEG (NEG-TRACE) MG/DL Urine Glucose (UA) NEG (NEG) MG/DL Urine Ketones NEG (NEG) MG/DL Urine Blood NEG (NEG) Urine Nitrite NEG (NEG) Ur Leukocyte Esterase TRACE H (NEG) Urine RBC 0-2 (0) /HPF Urine WBC 1-4 (0-4) /HPF Ur Squamous Epith Cells TRACE /LPF Urine Bacteria 2+ /LPF ECG Data Attestation: I personally reviewed and interpreted this ECG as follows: Interpretation: Sinus bradycardia with heart rate 52 beats per minute normal axis normal intervals no acute STT wave changes impression no acute ischemia Discharge Plan Discharge Clinical Impression: Vasovagal near-syncope Patient Disposition: Home, Self-Care Instructions: Near Syncope (ED) Additional Instructions: Drink plenty of fluids take pain medication for arthritis as prescribed by your PCP Taking blood pressure medicine daily Prescriptions: No Action metformin 500 mg tablet 1 tab PO BID RF: 0 lisinopril 20 mg tablet 1 tab PO DAILY RF: 0 acetaminophen 500 mg tablet 1 - 2 tab PO Q6H PRN (Reason: Pain) RF: 0 omeprazole 20 mg capsule,delayed release(DR/EC) 1 cap PO DAILY RF: 0 lrwhagpkut-rjiwrwfqnmeux-ycxb [Fioricet] 50-300-40 mg capsule 1 cap PO Q6H PRN (Reason: pain) 5 Days Qty: 20 RF: 0 cyclobenzaprine 10 mg tablet 10 mg PO TID PRN (Reason: muscle spasm) Qty: 14 RF: 0 celecoxib [Celebrex] 200 mg capsule 200 mg PO BID 30 Days Qty: 60 RF: 12 triamcinolone acetonide 0.5 % cream 1 appl topical BID Qty: 15 RF: 0
[2021-07-15 20:57] VITALS: BP 150/66; PULSE 52
[2021-07-15 20:58] VITALS: BP 144/81; PULSE 51
[2021-07-15 20:59] VITALS: BP 159/75; PULSE 59
[2021-07-15 22:06] VITALS: BP 118/44; PULSE 53; RESP 16; O2SAT 97
== END 2021-07-15 22:12 | disposition home or self-care (01) ==
PROVIDERS: Emergency Medicine; Emergency Provider Internal Medicine
DX: R55 Syncope and collapse (principal); R07.9 Chest pain, unspecified
CPT/HCPCS: 36415; 71045; 80048; 80076; 81001; 84484; 85025; 87086; 93005; 99283; 99284

== ENCOUNTER 2021-07-21 21:06 | Emergency (ER) | payer MEDICAID, SELFPAY ==
--- NOTE | ~2021-07-21 | XR_ITS ---
EXAMINATION: XR CHEST CLINICAL INFORMATION: Chest pain. COMPARISON: Multiple priors. Most recent chest radiograph dated from 07/15/2021. TECHNIQUE: PA view of the chest was obtained. FINDINGS: No significant abnormality is noted involving the heart, lungs, mediastinum, bony thorax or soft tissues. XR/XR chest 1V IMPRESSION: Unremarkable examination.
[2021-07-21 21:37] VITALS: BP 189/98; PULSE 60; RESP 18; TEMP 36.3; O2SAT 97; BMI 22.1
[2021-07-21 21:46] LABS: Glucose, Whole Blood 145 mg/dL (60-115)
[2021-07-21 22:19] LABS: Basophils Absolute Auto 0.1 X10*3/uL (0.0-0.2); Basophils Percent Auto 0.7 % (0-2); Eosinophils Absolute Auto 0.2 X10*3/uL (0.0-0.4); Eosinophils Percent Auto 1.8 % (0-4); Hematocrit 43.3 % (37.0-47.0); Hemoglobin 14.9 g/dl (12.0-16.0); Imm Gran Abs Auto 0.03 X10*3/uL (0.00-0.03); Imm Gran Pct Auto 0.3 % (0.0-0.4); Lymphocytes Absolute Auto 4.5 X10*3/uL (1.2-4.9); Lymphocytes Percent Auto 41.4 % (20-40); MANUAL DIFF FLAG NO; Mean Corpuscular HGB Conc 34.4 g/dl (31.0-35.0); Mean Corpuscular Hemoglobin 31.7 pg (27.0-33.0); Mean Corpuscular Volume 92.1 fL (80.0-98.0); Mean Platelet Volume 10.8 fL (9.4-12.3); Monocytes Absolute Auto 0.7 X10*3/uL (0.1-1.2); Monocytes Percent Auto 6.2 % (2-11); Neutrophils Absolute Auto 5.3 x10*3/uL (2.0-8.3); Neutrophils Percent Auto 49.6 % (45-73); Platelet Count 302 X10*3/uL (160-400); Red Cell Distribution Width 12.5 % (11.0-16.0); White Blood Count 10.8 X10*3/uL (4.8-10.8)
[2021-07-21 22:31] LABS: Anion Gap 10 (12-20); Blood Urea Nitrogen 8 mg/dL (9-16); Calcium 9.3 mg/dL (8.4-10.2); Carbon Dioxide 25 mmol/L (22-29); Chloride 107 mmol/L (96-108); Creatinine Clr Calc Pharmacy 78.9; Estimated Glomerular Filt Rate > 60; Glucose Random 138 mg/dL (60-115); Sodium 138 mmol/L (135-145)
[2021-07-21 22:38] LABS: Troponin-I High Sensitivity < 3.5 ng/L (<3.5-17.0)
[2021-07-22 00:08] VITALS: BP 192/74; PULSE 64; RESP 16; O2SAT 97
--- NOTE | 2021-07-22 00:13 | ED.GENADULT ---
HPI - General Adult General Chief complaint: General Medical <JEWEL Vega - Last Filed: 07/22/21 00:34> Stated complaint: High blood pressure/Chest pain <JEWEL Vega - Last Filed: 07/22/21 00:34> Time Seen by Provider: 07/21/21 23:46 <JEWEL Vega Last Filed: 07/22/21 00:34> Source: patient <JEWEL Vega Last Filed: 07/22/21 00:34> Mode of arrival: ambulatory <JEWEL Vega Last Filed: 07/22/21 00:34> Limitations: no limitations <JEWEL Vega Last Filed: 07/22/21 00:34> History of Present Illness HPI narrative: 61-year-old female with a history of hypertension, CAD, chronic pain, osteoarthritis, sinus bradycardia who presents to the ER with high blood pressure at home today. BP 190/90 at home. She was seen here on July 15 for an episode of dizziness associated with hypertension with systolic blood pressure in the 190s. Repeat blood pressure on that visit was 143/68. She had normal labs and was discharged home to continue on her current medications. She reports she is on Lopressor 25 mg per day but her claim history reports she is on lisinopril 20 mg per day. She reports seeing her doctor on 07/16 and was started on Lopressor XL 25 mg. After that visit she stopped her lisinopril and only continued the BB. She states her doctor never explained it to her and she didn't know she could take more than 1 medication for BP. She denies any chest pain, , headache, vision changes. <JEWEL Vega - Last Filed: 07/22/21 00:34> MD complaint: Hypertension <JEWEL Vega Last Filed: 07/22/21 00:34> Onset (ago): unknown <JEWEL Vega Last Filed: 07/22/21 00:34> Relieving factors: none <JEWEL Vega Last Filed: 07/22/21 00:34> Exacerbating factors: none <JEWEL Vega Last Filed: 07/22/21 00:34> Associated symptoms: denies other symptoms <JEWEL Vega Last Filed: 07/22/21 00:34> Treatments prior to arrival: none <JEWEL Vega Last Filed: 07/22/21 00:34> Related Data Home medications: Home Medications Medication Instructions Recorded Confirmed acetaminophen 500 mg tablet 1 - 2 tab PO Q6H PRN 07/12/21 07/12/21 lisinopril 20 mg tablet 1 tab PO DAILY 07/12/21 07/12/21 metformin 500 mg tablet 1 tab PO BID 07/12/21 07/12/21 omeprazole 20 mg capsule,delayed 1 cap PO DAILY 07/12/21 07/12/21 release Previous Rx's Medication Instructions Recorded triamcinolone acetonide 0.5 % 1 appl TOPICAL BID #15 g 03/16/21 topical cream celecoxib 200 mg capsule (Celebrex) 200 mg PO BID 30 Days #60 cap 05/05/21 [id number]-qjmkhujpfhmhm-xkaqtnab 1 cap PO Q6H PRN 5 Days #20 cap 05/20/21 50 mg-300 mg-40 mg capsule (Fioricet) cyclobenzaprine 10 mg tablet 10 mg PO TID PRN #14 tab 06/07/21 lisinopril 20 mg tablet 20 mg PO DAILY #30 tab 07/22/21 <JEWEL Vega Last Filed: 07/22/21 00:34> Allergies/adverse reactions: Allergies Allergy/AdvReac Type Severity Reaction Status Date / Time codeine Allergy unknown Verified 05/05/21 09:51 <JEWEL Vega Last Filed: 07/22/21 00:34> Review of Systems Review of Systems: Constitutional: No Fever, No Chills ENT/Mouth: No sore throat, No Rhinorrhea, No Swallowing Difficulty Eyes: No vision changes Cardiovascular: No Chest Pain, No SOB, No Orthopnea, No Edema Respiratory: No Cough, No Sputum, No Wheezing, No dyspnea Gastrointestinal: No Nausea, No Vomiting, No Diarrhea, No abdominal Pain Musculoskeletal: No joint pain, + Myalgias Skin: No Skin Lesions, No rash Neuro: No Weakness, No Numbness, No Dizziness, No Headache Psych: + Anxiety/Panic, No Depression Heme/Lymph: No Bruising, No Lymphadenopathy <JEWEL Vega Filed: 07/22/21 00:34> [facility] Past Medical History Medical History: Medical History Arterial insufficiency of lower extremity Chronic pain syndrome Diabetes Generalized osteoarthritis GERD (gastroesophageal reflux disease) Osteoarthritis of knees, bilateral Osteoarthritis of left knee Severe arterial insufficiency of right lower extremity Spondylosis of lumbar spine Weakness of both lower extremities Weakness of left lower extremity <JEWEL Vega - Last Filed: 07/22/21 00:34> Surgical History: Surgical History Hx laparoscopic cholecystectomy <JEWEL Vega - Last Filed: 07/22/21 00:34> Social History Social History: Social History Patient Tobacco Use Status: Former Tobacco user Advance Directives: No Advance Directives Information Provided: Yes <JEWEL Vega - Last Filed: 07/22/21 00:34> Physical Exam Vital Signs: Vital Signs: Last Vital Signs Temp 97.4 F 07/21/21 21:37 Pulse 62 07/22/21 01:19 Resp 16 07/22/21 01:19 BP 142/54 H 07/22/21 01:19 Pulse Ox 95 07/22/21 01:19 BMI result Body Mass Index 22.1 <JEWEL Vega - Last Filed: 07/22/21 00:34> Vital Signs: Last Vital Signs Temp 97.4 F 07/21/21 21:37 Pulse 62 07/22/21 01:19 Resp 16 07/22/21 01:19 BP 142/54 H 07/22/21 01:19 Pulse Ox 95 07/22/21 01:19 BMI result Body Mass Index 22.1 <Jorge Alexis MD - Last Filed: 07/22/21 01:46> Appearance: Alert. Oriented X3. No acute distress. Eyes: Pupils equal, round and reactive to light. ENT: Pharynx normal. Neck: Normal inspection. Neck supple. CVS: Normal heart rate and rhythm. Pulses normal. Respiratory: No respiratory distress. Breath sounds normal. Abdomen: Soft and nontender. +BS x4 Skin: Skin warm and dry. Normal skin color. Normal skin turgor. No rashes. Extremities: No lower extremity edema. Neuro: Oriented X 3. Grossly normal, nonfocal <JEWEL Vega - Last Filed: 07/22/21 00:34> Course Course Course Narrative: 61 y/o female with hx HTN presents to the ER with high BP at home, 190/90. On arrival blood pressure similar reading. She has no symptoms at this time. It seems as though her hypertension is related to noncompliance with her DANETTE-inhibitor. Her lab workup was unremarkable. Her troponin is negative. Will plan to give her a dose of 20 mg lisinopril now, reassess her BP and discharge home if improved. She reports she has appointment with eyeglass fitter tomorrow. <JEWEL Vega - Last Filed: 07/22/21 00:34> Reevaluation(s) Reevaluation #1: blood pressure down to 140s systolic <Jorge Alexis MD - Last Filed: 07/22/21 01:46> Time: 01:46 <Jorge Alexis MD - Last Filed: 07/22/21 01:46> Medical Decision Making Lab Data Result diagrams: : 07/21/21 22:12 07/21/21 22:12 <JEWEL Vega - Last Filed: 07/22/21 00:34> Labs: Lab Results 07/21/21 07/21/21 07/21/21 Range/Units 21:37 22:12 22:12 WBC 10.8 (4.8-10.8) X10*3/uL RBC 4.70 (4.20-5.50) X10*6/uL Hgb 14.9 (12.0-16.0) g/dl Hct 43.3 (37.0-47.0) % MCV 92.1 (80.0-98.0) fL MCH 31.7 (27.0-33.0) pg MCHC 34.4 (31.0-35.0) g/dl RDW 12.5 (11.0-16.0) % Plt Count 302 (160-400) X10*3/uL MPV 10.8 (9.4-12.3) fL Immature Gran % (Auto) 0.3 (0.0-0.4) % Neut % (Auto) 49.6 (45-73) % Lymph % (Auto) 41.4 H (20-40) % [place] % (Auto) 6.2 (2-11) % Eos % (Auto) 1.8 (0-4) % Baso % (Auto) 0.7 (0-2) % Lymph # (Auto) 4.5 (1.2-4.9) X10*3/uL [place] # (Auto) 0.7 (0.1-1.2) X10*3/uL Eos # (Auto) 0.2 (0.0-0.4) X10*3/uL Baso # (Auto) 0.1 (0.0-0.2) X10*3/uL Abs Immat Gran (auto) 0.03 (0.00-0.03) X10*3/uL Absolute Neuts (auto) 5.3 (2.0-8.3) x10*3/uL Absolute Nucleated RBC 0.000 (0.0-0.012) X10*3/uL Nucleated RBC % (auto) 0.0 (0.0-0.2) /100WBC Sodium 138 (135-145) mmol/L Potassium 4.0 (3.3-5.1) mmol/L Chloride 107 (96-108) mmol/L Carbon Dioxide 25 (22-29) mmol/L Anion Gap 10 L (12-20) BUN 8 L (9-16) mg/dL Creatinine 0.71 (0.5-1.4) mg/dL Estim Creat Clear Calc 78.9 Estimated GFR > 60 POC Glucose 145 H (60-115) mg/dL Random Glucose 138 H (60-115) mg/dL Calcium 9.3 (8.4-10.2) mg/dL Troponin I High Sens (<3.5-17.0) ng/L 07/21/21 Range/Units 22:12 WBC (4.8-10.8) X10*3/uL RBC (4.20-5.50) X10*6/uL Hgb (12.0-16.0) g/dl Hct (37.0-47.0) % MCV (80.0-98.0) fL MCH (27.0-33.0) pg MCHC (31.0-35.0) g/dl RDW (11.0-16.0) % Plt Count (160-400) X10*3/uL MPV (9.4-12.3) fL Immature Gran % (Auto) (0.0-0.4) % Neut % (Auto) (45-73) % Lymph % (Auto) (20-40) % [place] % (Auto) (2-11) % Eos % (Auto) (0-4) % Baso % (Auto) (0-2) % Lymph # (Auto) (1.2-4.9) X10*3/uL [place] # (Auto) (0.1-1.2) X10*3/uL Eos # (Auto) (0.0-0.4) X10*3/uL Baso # (Auto) (0.0-0.2) X10*3/uL Abs Immat Gran (auto) (0.00-0.03) X10*3/uL Absolute Neuts (auto) (2.0-8.3) x10*3/uL Absolute Nucleated RBC (0.0-0.012) X10*3/uL Nucleated RBC % (auto) (0.0-0.2) /100WBC Sodium (135-145) mmol/L Potassium (3.3-5.1) mmol/L Chloride (96-108) mmol/L Carbon Dioxide (22-29) mmol/L Anion Gap (12-20) BUN (9-16) mg/dL Creatinine (0.5-1.4) mg/dL Estim Creat Clear Calc Estimated GFR POC Glucose (60-115) mg/dL Random Glucose (60-115) mg/dL Calcium (8.4-10.2) mg/dL Troponin I High Sens < 3.5 (<3.5-17.0) ng/L <JEWEL Vega - Last Filed: 07/22/21 00:34> Lab Results 07/21/21 07/21/21 07/21/21 Range/Units 21:37 22:12 22:12 WBC 10.8 (4.8-10.8) X10*3/uL RBC 4.70 (4.20-5.50) X10*6/uL Hgb 14.9 (12.0-16.0) g/dl Hct 43.3 (37.0-47.0) % MCV 92.1 (80.0-98.0) fL MCH 31.7 (27.0-33.0) pg MCHC 34.4 (31.0-35.0) g/dl RDW 12.5 (11.0-16.0) % Plt Count 302 (160-400) X10*3/uL MPV 10.8 (9.4-12.3) fL Immature Gran % (Auto) 0.3 (0.0-0.4) % Neut % (Auto) 49.6 (45-73) % Lymph % (Auto) 41.4 H (20-40) % [place] % (Auto) 6.2 (2-11) % Eos % (Auto) 1.8 (0-4) % Baso % (Auto) 0.7 (0-2) % Lymph # (Auto) 4.5 (1.2-4.9) X10*3/uL [place] # (Auto) 0.7 (0.1-1.2) X10*3/uL Eos # (Auto) 0.2 (0.0-0.4) X10*3/uL Baso # (Auto) 0.1 (0.0-0.2) X10*3/uL Abs Immat Gran (auto) 0.03 (0.00-0.03) X10*3/uL Absolute Neuts (auto) 5.3 (2.0-8.3) x10*3/uL Absolute Nucleated RBC 0.000 (0.0-0.012) X10*3/uL Nucleated RBC % (auto) 0.0 (0.0-0.2) /100WBC Sodium 138 (135-145) mmol/L Potassium 4.0 (3.3-5.1) mmol/L Chloride 107 (96-108) mmol/L Carbon Dioxide 25 (22-29) mmol/L Anion Gap 10 L (12-20) BUN 8 L (9-16) mg/dL Creatinine 0.71 (0.5-1.4) mg/dL Estim Creat Clear Calc 78.9 Estimated GFR > 60 POC Glucose 145 H (60-115) mg/dL Random Glucose 138 H (60-115) mg/dL Calcium 9.3 (8.4-10.2) mg/dL Troponin I High Sens (<3.5-17.0) ng/L 07/21/21 Range/Units 22:12 WBC (4.8-10.8) X10*3/uL RBC (4.20-5.50) X10*6/uL Hgb (12.0-16.0) g/dl Hct (37.0-47.0) % MCV (80.0-98.0) fL MCH (27.0-33.0) pg MCHC (31.0-35.0) g/dl RDW (11.0-16.0) % Plt Count (160-400) X10*3/uL MPV (9.4-12.3) fL Immature Gran % (Auto) (0.0-0.4) % Neut % (Auto) (45-73) % Lymph % (Auto) (20-40) % [place] % (Auto) (2-11) % Eos % (Auto) (0-4) % Baso % (Auto) (0-2) % Lymph # (Auto) (1.2-4.9) X10*3/uL [place] # (Auto) (0.1-1.2) X10*3/uL Eos # (Auto) (0.0-0.4) X10*3/uL Baso # (Auto) (0.0-0.2) X10*3/uL Abs Immat Gran (auto) (0.00-0.03) X10*3/uL Absolute Neuts (auto) (2.0-8.3) x10*3/uL Absolute Nucleated RBC (0.0-0.012) X10*3/uL Nucleated RBC % (auto) (0.0-0.2) /100WBC Sodium (135-145) mmol/L Potassium (3.3-5.1) mmol/L Chloride (96-108) mmol/L Carbon Dioxide (22-29) mmol/L Anion Gap (12-20) BUN (9-16) mg/dL Creatinine (0.5-1.4) mg/dL Estim Creat Clear Calc Estimated GFR POC Glucose (60-115) mg/dL Random Glucose (60-115) mg/dL Calcium (8.4-10.2) mg/dL Troponin I High Sens < 3.5 (<3.5-17.0) ng/L <Jorge Alexis MD - Last Filed: 07/22/21 01:46> Critical Care Time Critical Care Time Critical Care Time: No <JEWEL Vega - Last Filed: 07/22/21 00:34> Discharge Plan Discharge Clinical Impression: Poorly-controlled hypertension <JEWEL Vega - Last Filed: 07/22/21 00:34> Patient Disposition: Home, Self-Care <JEWEL Vega - Last Filed: 07/22/21 00:34> Instructions: Hypertension (ED) <JEWEL Vega - Last Filed: 07/22/21 00:34> Additional Instructions: Your lab workup today was normal. Resume your Lisinopril 20 mg. Take it along with your metoprolol XL 25 mg daily. Monitor your BP two times per day at home and keep a record for your doctor. Follow up with your doctor within 1 week. If you develop chest pain, severe headache, vision changes or any other concerning symptoms call 911 or come back to the ER for further evaluation. <JEWEL Vega - Last Filed: 07/22/21 00:34> Prescriptions: New lisinopril 20 mg tablet 20 mg PO DAILY Qty: 30 RF: 0 No Action metformin 500 mg tablet 1 tab PO BID RF: 0 lisinopril 20 mg tablet 1 tab PO DAILY RF: 0 acetaminophen 500 mg tablet 1 - 2 tab PO Q6H PRN (Reason: Pain) RF: 0 omeprazole 20 mg capsule,delayed release(DR/EC) 1 cap PO DAILY RF: 0 [id number]-rbkhrgunnmmmh-xsno [Fioricet] 50-300-40 mg capsule 1 cap PO Q6H PRN (Reason: pain) 5 Days Qty: 20 RF: 0 cyclobenzaprine 10 mg tablet 10 mg PO TID PRN (Reason: muscle spasm) Qty: 14 RF: 0 celecoxib [Celebrex] 200 mg capsule 200 mg PO BID 30 Days Qty: 60 RF: 12 triamcinolone acetonide 0.5 % cream 1 appl topical BID Qty: 15 RF: 0 <JEWEL Vega - Last Filed: 07/22/21 00:34> Referrals: [facility] [Primary Care Provider] - 2 days (follow up poorly controlled HTN) <JEWEL Vega - Last Filed: 07/22/21 00:34>
[2021-07-22 00:49] VITALS: BP 197/74; PULSE 67
[2021-07-22] MEDS: lisinopriL 20 MG TABLET PO (00:49)
[2021-07-22 01:19] VITALS: BP 142/54; PULSE 62; RESP 16; O2SAT 95
== END 2021-07-22 02:20 | disposition home or self-care (01) ==
PROVIDERS: Emergency Provider Emergency Medicine
DX: I10 Essential (primary) hypertension (principal); R42 Dizziness and giddiness; E11.9 Type 2 diabetes mellitus without complications; Z79.899 Other long term (current) drug therapy
CPT/HCPCS: 36415; 71045; 80048; 82947; 84484; 85025; 99284

== ENCOUNTER 2021-08-01 23:53 | Emergency (ER) | payer MEDICAID, SELFPAY ==
[2021-08-01 23:55] VITALS: BP 218/100; PULSE 67; RESP 16; TEMP 37.1; O2SAT 98; BMI 25.9
[2021-08-02 03:53] VITALS: BP 212/86; PULSE 57; RESP 20; TEMP 36.5; O2SAT 95
[2021-08-02 07:03] VITALS: BP 176/77; PULSE 58; RESP 18; O2SAT 94
[2021-08-02 07:14] LABS: Glucose, Whole Blood 138 mg/dL (60-115)
== END 2021-08-02 09:26 | disposition left against medical advice (07) ==
PROVIDERS: Emergency Provider Emergency Medicine; PCP Family Medicine
DX: I10 Essential (primary) hypertension (principal)
CPT/HCPCS: 82947; 99282; 99284

== ENCOUNTER 2021-08-06 21:49 | Emergency (ER) | payer MEDICAID, SELFPAY ==
[2021-08-06 23:03] VITALS: BP 146/80; PULSE 52; RESP 15; TEMP 37; O2SAT 97; BMI 31.8
[2021-08-06 23:40] LABS: COVID-19 Test Negative (Negative)
[2021-08-07 00:22] VITALS: BP 149/71; PULSE 55; RESP 16; O2SAT 98
--- NOTE | 2021-08-07 00:31 | ED_ITS ---
HPI - General Adult General Chief complaint: General Medical Stated complaint: HIGH BLOOD PRESURE Time Seen by Provider: 08/07/21 00:17 Source: patient Mode of arrival: ambulatory Limitations: no limitations History of Present Illness HPI narrative: Patient comes to emergency room complaining of high blood pressure. Patient states that at home her blood pressure read 201/110 systolic. Patient states that she got scared, called EMS. When the EMS arrived, blood pressure was 140 systolic. On arrival to the ED, patient was similar, 146 systolic. Patient complaining of mild headache, otherwise she is asymptomatic. Related Data Home Medications Medication Instructions Recorded Confirmed acetaminophen 500 mg tablet 1 - 2 tab PO Q6H PRN 07/12/21 07/12/21 lisinopril 20 mg tablet 1 tab PO DAILY 07/12/21 07/12/21 metformin 500 mg tablet 1 tab PO BID 07/12/21 07/12/21 omeprazole 20 mg capsule,delayed 1 cap PO DAILY 07/12/21 07/12/21 release Previous Rx's Medication Instructions Recorded triamcinolone acetonide 0.5 % 1 appl TOPICAL BID #15 g 03/16/21 topical cream celecoxib 200 mg capsule (Celebrex) 200 mg PO BID 30 Days #60 cap 05/05/21 [id number]-azfgmvulbfswe-wvehqqct 1 cap PO Q6H PRN 5 Days #20 cap 05/20/21 50 mg-300 mg-40 mg capsule (Fioricet) cyclobenzaprine 10 mg tablet 10 mg PO TID PRN #14 tab 06/07/21 lisinopril 20 mg tablet 20 mg PO DAILY #30 tab 07/22/21 Allergies Allergy/AdvReac Type Severity Reaction Status Date / Time codeine Allergy unknown Verified 05/05/21 09:51 Review of Systems Review of Systems: Constitutional : No Weight loss, No Fever, No Chills, No Night Sweats, No Fatigue, No Malaise ENT/Mouth : No Hearing loss, No Ear Pain, No Nasal Congestion, No Sinus Pain, No Hoarseness, No sore throat, No Rhinorrhea, No Swallowing Difficulty Eyes: No Eye Pain, No Swelling, No Redness, No Foreign Body, No Discharge, No Vision Changes Cardiovascular : No Chest Pain, No SOB, No Dyspnea on Exertion, No Orthopnea, No Edema, No Palpitations Respiratory : No Cough, No Sputum, No Wheezing, No Smoke Exposure, No Dyspnea Gastrointestinal : No Nausea, No Vomiting, No Diarrhea, No Constipation, No abdominal Pain, No Hematochezia, No Melena Genitourinary : no irregular bleeding, No Dysuria, No Urinary Frequency, No Hematuria, No Urinary Incontinence, No Urgency, No Flank Pain, No Urinary Flow Changes, No Hesitancy Musculoskeletal : No joint pain, No Myalgias, No Joint Swelling Skin : No Skin Lesions, No rash Neuro : No Weakness, No Numbness, No Paresthesias, No Loss of Consciousness, No Dizziness, complaining of mild Headache Psych : No Anxiety/Panic, No Depression, No SI/HI/AH/VH, No Social Issues, Heme/Lymph: No Bruising, No Bleeding,No Lymphadenopathy Endocrine : No Polyuria, No Polydipsia, No Temperature Intolerance [facility] Past Medical History Medical History Arterial insufficiency of lower extremity Chronic pain syndrome Diabetes Generalized osteoarthritis GERD (gastroesophageal reflux disease) Osteoarthritis of knees, bilateral Osteoarthritis of left knee Severe arterial insufficiency of right lower extremity Spondylosis of lumbar spine Weakness of both lower extremities Weakness of left lower extremity Surgical History Hx laparoscopic cholecystectomy Social History Social History Patient Tobacco Use Status: Former Tobacco user Advance Directives: No Patient : No Physical Exam Vital Signs: Vital Signs: Last Vital Signs Temp 98.6 F 08/06/21 23:03 Pulse 55 08/07/21 00:22 Resp 16 08/07/21 00:22 BP 149/71 H 08/07/21 00:22 Pulse Ox 98 08/07/21 00:22 BMI result Body Mass Index 31.8 Const: Other: Appearance: Alert. Oriented X3. No acute distress. Eyes: Pupils equal, round and reactive to light. ENT: Pharynx normal. Neck: Normal inspection. Neck supple. No lymph nodes noted. No crepitus CVS: Normal heart rate and rhythm. Pulses normal. Normal S1 and S2 Respiratory: No respiratory distress. Breath sounds normal. No Wheezing. No rales Abdomen: Soft and nontender. No rigidity. No distention. good BS x4 Skin: Skin warm and dry. Normal skin color. Normal skin turgor. Extremities: No lower extremity edema. No Lacerations. No Rash Neuro: Oriented X 3. No motor deficit. No sensory deficit. Moving all extermities. No slurred speech. Course Course Course Narrative: Patient's blood pressure is 146 systolic. Patient's physical exam is within normal limits. I discussed with the patient that is possible that her blood pressure machine is not well calibrated. Instructed patient to go to [facility] or warmer where she can get her pressure taken for free to compare blood pressures. In the meantime, patient instructed to continue taking her 40 mg of lisinopril at 20 mg of metoprolol as previously prescribed Medical Decision Making Lab Data Labs: Lab Results 08/06/21 Range/Units 23:10 COVID-19 (TRACY) Negative (Negative) COVID-19 Clin Com See Note Discharge Plan Discharge Clinical Impression: Hypertension, Headache Patient Disposition: Home, Self-Care Instructions: Hypertension (ED) Additional Instructions: Please follow-up with your primary care physician tomorrow. If you have any worsening or new symptoms, please return to the emergency room or call 911 Prescriptions: No Action metformin 500 mg tablet 1 tab PO BID RF: 0 lisinopril 20 mg tablet 1 tab PO DAILY RF: 0 acetaminophen 500 mg tablet 1 - 2 tab PO Q6H PRN (Reason: Pain) RF: 0 omeprazole 20 mg capsule,delayed release(DR/EC) 1 cap PO DAILY RF: 0 pegsmwgwrt-bnkyqnjvytaez-oxhf [Fioricet] 50-300-40 mg capsule 1 cap PO Q6H PRN (Reason: pain) 5 Days Qty: 20 RF: 0 cyclobenzaprine 10 mg tablet 10 mg PO TID PRN (Reason: muscle spasm) Qty: 14 RF: 0 lisinopril 20 mg tablet 20 mg PO DAILY Qty: 30 RF: 0 celecoxib [Celebrex] 200 mg capsule 200 mg PO BID 30 Days Qty: 60 RF: 12 triamcinolone acetonide 0.5 % cream 1 appl topical BID Qty: 15 RF: 0
[2021-08-07] MEDS: Acetaminophen 325 MG TABLET 650 MG PO (00:41)
== END 2021-08-07 00:46 | disposition home or self-care (01) ==
PROVIDERS: Emergency Provider Emergency Medicine
DX: I10 Essential (primary) hypertension (principal); R51.9 Headache, unspecified; Z20.822 Contact with and (suspected) exposure to COVID-19
CPT/HCPCS: 36415; 87635; 99283; 99284

== ENCOUNTER 2021-08-10 10:48 | Emergency (ER) | payer MEDICAID, SELFPAY ==
--- NOTE | ~2021-08-10 | XR_ITS ---
EXAMINATION: CHEST X-RAY AND LEFT SHOULDER X-RAY CLINICAL INFORMATION: Pain COMPARISON: Previous chest x-rays most recent July 2021 TECHNIQUE: 2 views of the chest and 4 views of the left shoulder FINDINGS: Chest: The cardiac and mediastinal contours are stable. There were several small left pulmonary nodules measuring 4 mm that are stable. The lungs are otherwise clear. There is no pleural effusion or pneumothorax. There are degenerative changes of the spine. Left shoulder: Bone alignment is normal. No fracture or dislocation is seen. The glenohumeral joint is normal. There is arthritis at the acromioclavicular joint. There is an undersurface acromial osteophyte. Soft tissues are unremarkable. XR/XR shoulder LT min 2V IMPRESSION: Chest: No evidence for acute disease in the chest. Left shoulder: Degenerative changes.
--- NOTE | ~2021-08-10 | XR_ITS ---
EXAMINATION: CHEST X-RAY AND LEFT SHOULDER X-RAY CLINICAL INFORMATION: Pain COMPARISON: Previous chest x-rays most recent July 2021 TECHNIQUE: 2 views of the chest and 4 views of the left shoulder FINDINGS: Chest: The cardiac and mediastinal contours are stable. There were several small left pulmonary nodules measuring 4 mm that are stable. The lungs are otherwise clear. There is no pleural effusion or pneumothorax. There are degenerative changes of the spine. Left shoulder: Bone alignment is normal. No fracture or dislocation is seen. The glenohumeral joint is normal. There is arthritis at the acromioclavicular joint. There is an undersurface acromial osteophyte. Soft tissues are unremarkable. XR/XR chest 2V IMPRESSION: Chest: No evidence for acute disease in the chest. Left shoulder: Degenerative changes.
[2021-08-10 12:22] VITALS: BP 145/69; PULSE 56; RESP 18; TEMP 36.6; O2SAT 94; BMI 23.8
--- NOTE | 2021-08-10 13:33 | ECG_ITS ---
Test Reason : shoulder pian Blood Pressure : / mmHG Vent. Rate : 049 BPM Atrial Rate : 049 BPM P-R Int : 132 ms QRS Dur : 092 ms QT Int : 456 ms P-R-T Axes : 022 011 013 degrees QTc Int : 411 ms Sinus bradycardia Nonspecific T wave abnormality Abnormal ECG When compared with ECG of 15-JUL-2021 19:10, Nonspecific T wave abnormality now evident in Lateral leads Referred By: Kierra Dhillon Electronically Signed By:RODDY ROCHA MD
[2021-08-10 14:25] LABS: MANUAL DIFF FLAG NO
[2021-08-10 14:28] LABS: Basophils Absolute Auto 0.1 X10*3/uL (0.0-0.2); Basophils Percent Auto 0.9 % (0-2); Eosinophils Absolute Auto 0.1 X10*3/uL (0.0-0.4); Eosinophils Percent Auto 1.2 % (0-4); Hematocrit 46.9 % (37.0-47.0); Hemoglobin 16.4 g/dl (12.0-16.0); Imm Gran Abs Auto 0.03 X10*3/uL (0.00-0.03); Imm Gran Pct Auto 0.3 % (0.0-0.4); Lymphocytes Absolute Auto 3.8 X10*3/uL (1.2-4.9); Lymphocytes Percent Auto 36.1 % (20-40); Mean Corpuscular Hemoglobin 32.2 pg (27.0-33.0); Mean Corpuscular Volume 92.1 fL (80.0-98.0); Mean Platelet Volume 11.1 fL (9.4-12.3); Monocytes Absolute Auto 0.6 X10*3/uL (0.1-1.2); Monocytes Percent Auto 5.8 % (2-11); Neutrophils Absolute Auto 5.9 x10*3/uL (2.0-8.3); Neutrophils Percent Auto 55.7 % (45-73); Platelet Count 305 X10*3/uL (160-400); Red Blood Count 5.09 X10*6/uL (4.20-5.50); Red Cell Distribution Width 12.4 % (11.0-16.0); White Blood Count 10.6 X10*3/uL (4.8-10.8)
[2021-08-10 14:44] LABS: Alanine Aminotransferase 16 U/L (0-31); Albumin Level 4.4 g/dL (3.5-5.0); Alkaline Phosphatase 122 U/L (39-117); Anion Gap 12 (12-20); Aspartate Amino Transferase 15 U/L (5-31); Blood Urea Nitrogen 10 mg/dL (9-16); Calcium 9.8 mg/dL (8.4-10.2); Carbon Dioxide 24 mmol/L (22-29); Chloride 108 mmol/L (96-108); Creatinine Clr Calc Pharmacy 67.1; Estimated Glomerular Filt Rate > 60; Glucose Random 157 mg/dL (60-115); Magnesium 2.3 mg/dL (1.6-2.6); Potassium 4.1 mmol/L (3.3-5.1); Sodium 140 mmol/L (135-145); Total Protein 7.2 g/dL (6.5-8.0)
--- NOTE | 2021-08-10 14:47 | ED.UPPEXIN ---
HPI - Extremity Injury (Upper) General Chief Complaint: Extremity Injury, Upper Stated Complaint: left shoulder pain Time Seen by Provider: 08/10/21 12:32 Source: patient Mode of arrival: ambulatory Limitations: language barrier (Macanese-speaking) History of Present Illness HPI narrative: 61-year-old female with a past medical history of hypertension, CAD, chronic pain, osteoarthritis, sinus bradycardia who presents to the ER with complaints of left shoulder pain for the past 2 weeks after she had a near mechanical fall at her mother in-laws house approximately 2 weeks ago. She reports that her symptoms had improved and then yesterday she started having the left shoulder pain. Someone told her that she should get her heart checked. Although she denies any dizziness, headaches, neck pain/stiffness, chest pain or shortness of breath, dyspnea on exertion, orthopnea, palpitations, extremity edema, paresthesias, nausea/vomiting/diarrhea, abdominal pain, back pain, rashes or any other symptoms complaints or concerns at this time. MD complaint: injury to: left and shoulder Onset (ago): day(s) (2) Other Extremity Injury: left: shoulder Other injuries: none Handedness: right Place: other (See above) Severity: mild Exacerbating factors: movement of extremity (And palpation) Context: fall (Near fall) Associated symptoms: denies other symptoms Treatments prior to arrival: other (She has been taking Tylenol with no symptomatic with) Related Data Home Medications Medication Instructions Recorded Confirmed acetaminophen 500 mg tablet 1 - 2 tab PO Q6H PRN 07/12/21 07/12/21 lisinopril 20 mg tablet 1 tab PO DAILY 07/12/21 07/12/21 metformin 500 mg tablet 1 tab PO BID 07/12/21 07/12/21 omeprazole 20 mg capsule,delayed 1 cap PO DAILY 07/12/21 07/12/21 release Previous Rx's Medication Instructions Recorded triamcinolone acetonide 0.5 % 1 appl TOPICAL BID #15 g 03/16/21 topical cream celecoxib 200 mg capsule (Celebrex) 200 mg PO BID 30 Days #60 cap 05/05/21 ugdtfrvoaj-ptyxlpdzyypbi-bawvccqn 1 cap PO Q6H PRN 5 Days #20 cap 05/20/21 50 mg-300 mg-40 mg capsule (Fioricet) cyclobenzaprine 10 mg tablet 10 mg PO TID PRN #14 tab 06/07/21 lisinopril 20 mg tablet 20 mg PO DAILY #30 tab 07/22/21 acetaminophen 500 mg tablet 1,000 mg PO QID PRN #14 tab 08/10/21 (Tylenol Extra Strength) cyclobenzaprine 10 mg tablet 10 mg PO Q8H PRN #14 tab 08/10/21 Allergies Allergy/AdvReac Type Severity Reaction Status Date / Time codeine Allergy unknown Verified 08/10/21 12:21 Review of Systems Review of Systems: Constitutional : No Weight loss, No Fever, No Chills, No Night Sweats, No Fatigue, No Malaise ENT/Mouth : No Hearing loss, No Ear Pain, No Nasal Congestion, No Sinus Pain, No Hoarseness, No sore throat, No Rhinorrhea, No Swallowing Difficulty Eyes: No Eye Pain, No Swelling, No Redness, No Foreign Body, No Discharge, No Vision Changes Cardiovascular : No Chest Pain, No SOB, No Dyspnea on Exertion, No Orthopnea, No Edema, No Palpitations Respiratory : No Cough, No Sputum, No Wheezing, No Smoke Exposure, No Dyspnea Gastrointestinal : No Nausea, No Vomiting, No Diarrhea, No Constipation, No abdominal Pain, No Hematochezia, No Melena Genitourinary : no irregular bleeding, No Dysuria, No Urinary Frequency, No Hematuria, No Urinary Incontinence, No Urgency, No Flank Pain, No Urinary Flow Changes, No Hesitancy Musculoskeletal : + joint pain, No Myalgias, No Joint Swelling Skin : No Skin Lesions, No rash Neuro : No Weakness, No Numbness, No Paresthesias, No Loss of Consciousness, No Dizziness, No Headache Psych : No Anxiety/Panic, No Depression, No SI/HI/AH/VH, No Social Issues, Heme/Lymph: No Bruising, No Bleeding,No Lymphadenopathy Endocrine : No Polyuria, No Polydipsia, No Temperature Intolerance Yes all other systems are reviewed and are negative [facility] Past Medical History Attestation statement: The following information was validated with the patient. Medical History Arterial insufficiency of lower extremity Chronic pain syndrome Diabetes Generalized osteoarthritis GERD (gastroesophageal reflux disease) Osteoarthritis of knees, bilateral Osteoarthritis of left knee Severe arterial insufficiency of right lower extremity Spondylosis of lumbar spine Weakness of both lower extremities Weakness of left lower extremity Surgical History Hx laparoscopic cholecystectomy Social History Social History Patient Tobacco Use Status: Former Tobacco user Advance Directives: No Advance Directives Information Provided: No Physical Exam Vital Signs: Vital Signs: Last Vital Signs Temp 97.8 F 08/10/21 12:22 Pulse 56 08/10/21 12:22 Resp 18 08/10/21 12:22 BP 145/69 H 08/10/21 12:22 Pulse Ox 94 08/10/21 12:22 BMI result Body Mass Index 23.8 vital signs have been reviewed as normal and appeared to be correct. Blood pressure normal. Heart rate normal. Respiration rate normal. Temperature normal. Oxygen saturation normal. Appearance: Alert. Oriented X3. No acute distress. Head: Normal external exam. Normocephalic. Atraumatic. Eyes: PERRLA. EOMI. Conjunctiva and sclera normal. Eyelids normal. ENT: Pharynx normal. Uvula midline. Moist mucous membranes. Neck: Normal inspection. Neck supple. FROM. No adenopathy. Thyroid Normal. No meningeal signs. No neck mass noted. CVS: Normal heart rate and rhythm. Heart sound normal. Pulses normal throughout. No murmurs/rales/gallops. Respiratory: No respiratory distress. Painless inspiration. Breath sounds normal. No wheezes/rales/rhonchi noted. Chest nontender. No accessory muscle usage noted or decreased air movement noted. Abdomen: Soft and nontender. Bowel sounds normal in all 4 quadrants. No distention noted. No organomegaly noted. No visible injury noted. Back: No CVA tenderness. Full range of motion noted. No rashes/lesion/induration/fluctuance or signs of infection noted. Skin: Skin warm and dry. Normal skin color. Normal skin turgor. No rashes/lesions/lacerations noted. Extremities: Patient with tenderness palpation to anterior shoulder joint at the AC joint. Patient has limited range of motion due to pain. No obvious ligamentous or tendon injury. No upper extremity edema noted. No signs of infection. Otherwise all other Extremities exhibit normal range of motion and nontender. No lower extremity edema or calf tenderness is noted. Neuro: Oriented X 3. No motor deficit. No sensory deficit. Reflexes normal. Normal steady gait. No focal neuro deficits noted. Vascular: + radial pulses/+ 2 distal pedal pulses/+2 dorsalis pedis b/l. Normal cap refill. No cyanosis noted to upper extremity nails and lower extremity toes nails. Course Course Course Narrative: 61-year-old female with a past medical history of hypertension, CAD, chronic pain, osteoarthritis, sinus bradycardia who presents to the ER with complaints of left shoulder pain for the past 2 weeks after she had a near mechanical fall at her mother in-laws house approximately 2 weeks ago. She reports that her symptoms had improved and then yesterday she started having the left shoulder pain. Someone told her that she should get her heart checked. Labs reviewed and random glucose 157. Alkaline phosphate 122. Troponin 3.9. Otherwise all other labs are within normal limits. Chest x-ray within normal limits no acute processes are noted. Left shoulder x-ray revealed arthritis. EKG is sinus bradycardia with ventricular rate of 51 with nonspecific T abnormalities no acute ischemic changes similar when compared to prior EKGs. I discussed this case with Dr. Driscoll/Dr. Blount and they both agree that the patient does not have to have repeat troponin as her troponin is only 3.9 and her symptoms have been constant for 2 days. Therefore explained to the patient that she needs to follow-up with her pmo business analyst/PCP and to return if any new or worsening symptoms. Patient understands agrees with this plan. MDM - Extremity Injury (Upper) Medical Records Attestation: I reviewed the patient's medical records. Lab Data Attestation: I reviewed the patient's lab results. Result diagrams: 08/10/21 14:16 08/10/21 14:16 Labs: Lab Results 08/10/21 08/10/21 08/10/21 Range/Units 14:16 14:16 14:16 WBC 10.6 (4.8-10.8) X10*3/uL RBC 5.09 (4.20-5.50) X10*6/uL Hgb 16.4 H (12.0-16.0) g/dl Hct 46.9 (37.0-47.0) % MCV 92.1 (80.0-98.0) fL MCH 32.2 (27.0-33.0) pg MCHC 35.0 (31.0-35.0) g/dl RDW 12.4 (11.0-16.0) % Plt Count 305 (160-400) X10*3/uL MPV 11.1 (9.4-12.3) fL Immature Gran % (Auto) 0.3 (0.0-0.4) % Neut % (Auto) 55.7 (45-73) % Lymph % (Auto) 36.1 (20-40) % [place] % (Auto) 5.8 (2-11) % Eos % (Auto) 1.2 (0-4) % Baso % (Auto) 0.9 (0-2) % Lymph # (Auto) 3.8 (1.2-4.9) X10*3/uL [place] # (Auto) 0.6 (0.1-1.2) X10*3/uL Eos # (Auto) 0.1 (0.0-0.4) X10*3/uL Baso # (Auto) 0.1 (0.0-0.2) X10*3/uL Abs Immat Gran (auto) 0.03 (0.00-0.03) X10*3/uL Absolute Neuts (auto) 5.9 (2.0-8.3) x10*3/uL Absolute Nucleated RBC 0.000 (0.0-0.012) X10*3/uL Nucleated RBC % (auto) 0.0 (0.0-0.2) /100WBC Sodium 140 (135-145) mmol/L Potassium 4.1 (3.3-5.1) mmol/L Chloride 108 (96-108) mmol/L Carbon Dioxide 24 (22-29) mmol/L Anion Gap 12 (12-20) BUN 10 (9-16) mg/dL Creatinine 0.77 (0.5-1.4) mg/dL Estim Creat Clear Calc 67.1 Estimated GFR > 60 Random Glucose 157 H (60-115) mg/dL Calcium 9.8 (8.4-10.2) mg/dL Magnesium 2.3 (1.6-2.6) mg/dL Total Bilirubin 1.0 (0.0-1.0) mg/dL AST 15 (5-31) U/L ALT 16 (0-31) U/L Alkaline Phosphatase 122 H (39-117) U/L Troponin I High Sens 3.9 (<3.5-17.0) ng/L Total Protein 7.2 (6.5-8.0) g/dL Albumin 4.4 (3.5-5.0) g/dL Imaging Data Chest x-ray: Attestation: I personally reviewed and interpreted this imaging study as follows: Radiologist's impression: FINDINGS: Chest: The cardiac and mediastinal contours are stable. There were several small left pulmonary nodules measuring 4 mm that are stable. The lungs are otherwise clear. There is no pleural effusion or pneumothorax. There are degenerative changes of the spine. Left shoulder: Bone alignment is normal. No fracture or dislocation is seen. The glenohumeral joint is normal. There is arthritis at the acromioclavicular joint. There is an undersurface acromial osteophyte. Soft tissues are unremarkable. XR/XR chest 2V IMPRESSION: Chest: No evidence for acute disease in the chest. ? Left shoulder: Degenerative changes. ECG Data Attestation: I personally reviewed and interpreted this ECG as follows: ECG interpretation date: 08/10/21 ECG interpretation time: 02:20 Interpretation: EKG is sinus bradycardia with ventricular rate of 51 with nonspecific T abnormalities no acute ischemic changes similar when compared to prior EKGs. Similar compared to prior EKG 07/15/2021 Discharge Plan Discharge Clinical Impression: Arthritis of left shoulder region Patient Disposition: Home, Self-Care Instructions: Osteoarthritis (ED) Prescriptions: New cyclobenzaprine 10 mg tablet 10 mg PO Q8H PRN (Reason: Muscle spasm) Qty: 14 RF: 0 acetaminophen [Tylenol Extra Strength] 500 mg tablet 1,000 mg PO QID PRN (Reason: fever or pain) Qty: 14 RF: 0 No Action metformin 500 mg tablet 1 tab PO BID RF: 0 lisinopril 20 mg tablet 1 tab PO DAILY RF: 0 acetaminophen 500 mg tablet 1 - 2 tab PO Q6H PRN (Reason: Pain) RF: 0 omeprazole 20 mg capsule,delayed release(DR/EC) 1 cap PO DAILY RF: 0 osolafwpak-tuvwwikbiizjf-hdqe [Fioricet] 50-300-40 mg capsule 1 cap PO Q6H PRN (Reason: pain) 5 Days Qty: 20 RF: 0 cyclobenzaprine 10 mg tablet 10 mg PO TID PRN (Reason: muscle spasm) Qty: 14 RF: 0 lisinopril 20 mg tablet 20 mg PO DAILY Qty: 30 RF: 0 celecoxib [Celebrex] 200 mg capsule 200 mg PO BID 30 Days Qty: 60 RF: 12 triamcinolone acetonide 0.5 % cream 1 appl topical BID Qty: 15 RF: 0 Referrals: Physician,Unknown J [Primary Care Provider] - 2 days (your pcp) Print Language: Macanese
[2021-08-10 14:48] LABS: Troponin-I High Sensitivity 3.9 ng/L (<3.5-17.0)
[2021-08-10] MEDS: Acetaminophen 325 MG TABLET 650 MG PO (15:02)
== END 2021-08-10 15:17 | disposition home or self-care (01) ==
PROVIDERS: Physician Assistant Medical; Emergency Provider Emergency Medicine
DX: M19.012 Primary osteoarthritis, left shoulder (principal); M25.512 Pain in left shoulder; R00.1 Bradycardia, unspecified
CPT/HCPCS: 36415; 71046; 73030; 80053; 83735; 84484; 85025; 93005; 99283; 99284

== ENCOUNTER 2021-09-05 21:46 | Emergency (ER) | payer MEDICAID, SELFPAY ==
[2021-09-05 21:51] VITALS: BP 157/60; BP 170/80; PULSE 71; PULSE 84; RESP 18; TEMP 36.6; O2SAT 96; O2SAT 99; BMI 24.5
--- NOTE | 2021-09-05 22:04 | ED_ITS ---
HPI - General Adult General Chief complaint: Recheck/Abnormal Lab/Rx Stated complaint: Hypertension Time Seen by Provider: 09/05/21 22:04 History of Present Illness HPI narrative: Patient history of hypertension on metoprolol 25 mg hydrochlorothiazide 25 mg and lisinopril 40 mg daily today she forgot whether she took her medications were not felt a little funny so check her blood pressure was 198/86 she recheck the blood pressure was 178/74 patient took extra metoprolol 25 mg on arrival patient blood pressure was 157/60 now 143/60 patient feeling better now patient was feeling anxious when she checks her blood pressure at home was not sure whether she took her medication in the morning or not Related Data Home Medications Medication Instructions Recorded Confirmed acetaminophen 500 mg tablet 1 - 2 tab PO Q6H PRN 07/12/21 07/12/21 lisinopril 20 mg tablet 1 tab PO DAILY 07/12/21 07/12/21 metformin 500 mg tablet 1 tab PO BID 07/12/21 07/12/21 omeprazole 20 mg capsule,delayed 1 cap PO DAILY 07/12/21 07/12/21 release Previous Rx's Medication Instructions Recorded triamcinolone acetonide 0.5 % 1 appl TOPICAL BID #15 g 03/16/21 topical cream celecoxib 200 mg capsule (Celebrex) 200 mg PO BID 30 Days #60 cap 05/05/21 zyuccfinhi-hlrhcmcnpknsn-rlzjkzes 1 cap PO Q6H PRN 5 Days #20 cap 05/20/21 50 mg-300 mg-40 mg capsule (Fioricet) cyclobenzaprine 10 mg tablet 10 mg PO TID PRN #14 tab 06/07/21 lisinopril 20 mg tablet 20 mg PO DAILY #30 tab 07/22/21 acetaminophen 500 mg tablet 1,000 mg PO QID PRN #14 tab 08/10/21 (Tylenol Extra Strength) cyclobenzaprine 10 mg tablet 10 mg PO Q8H PRN #14 tab 08/10/21 Allergies Allergy/AdvReac Type Severity Reaction Status Date / Time codeine Allergy unknown Verified 09/05/21 21:51 Review of Systems Verdana 4l Review of Systems: Yes all other systems are reviewed and Verdana 4d are negative PMFSH Past Medical History Medical History Arterial insufficiency of lower extremity Chronic pain syndrome Diabetes Generalized osteoarthritis GERD (gastroesophageal reflux disease) Osteoarthritis of knees, bilateral Osteoarthritis of left knee Severe arterial insufficiency of right lower extremity Spondylosis of lumbar spine Weakness of both lower extremities Weakness of left lower extremity Surgical History Hx laparoscopic cholecystectomy Social History Social History Alcohol intake: never Patient Tobacco Use Status: Former Tobacco user Use of substances other than those prescribed or required for medical reasons: No Advance Directives: No Advance Directives Information Provided: No Physical Exam Verdana 4l Vital Signs: Verdana 4d Verdana 4d Vital Signs: Verdana 4d Verdana 4Bd Last Vital Signs Verdana 4d Neonatal Intensive Care Unit Nurse New 4d Neonatal Intensive Care Unit Nurse New 4d Temp 97.9 F 09/05/21 21:51 Neonatal Intensive Care Unit Nurse New 4d Pulse 71 09/05/21 21:51 Neonatal Intensive Care Unit Nurse New 4d Resp 18 09/05/21 21:51 BP 157/60 H 09/05/21 21:51 Pulse Ox 96 09/05/21 21:51 BMI result Body Mass Index 24.5 Appearance: Alert. Oriented X3. No acute distress. Anxious Eyes: PERRL ENT: Pharynx normal. Oral Mucosa moist Neck: Normal inspection. Neck supple. CVS: Normal heart rate and rhythm. Pulses normal. Respiratory: No respiratory distress. Equal air entry bilateral, no wheezing/rales/rhonchi Abdomen: Soft and nontender. Bowel sounds are present, no mass palpable, Skin: Skin warm and dry. Normal skin color. Normal skin turgor. Extremities: No lower extremity edema. No calf tenderness Neuro: Oriented X 3. No motor deficit. No sensory deficit.No cerebellar signs , cranial nerves II-XII intact Discharge Plan Discharge Clinical Impression: Hypertension Patient Disposition: Home, Self-Care Instructions: Chronic Hypertension (ED) Additional Instructions: Take your medications on time Check blood pressure before you take the medications and before going to bed It should be less than 140/90 Follow-up with PCP [place] [facility] a tiempo Controle la presi?n arterial antes de edilia los medicamentos y antes de acostarse Debe ser menos de 140/90 Seguimiento con PCP Prescriptions: No Action metformin 500 mg tablet 1 tab PO BID 0RF lisinopril 20 mg tablet 1 tab PO DAILY 0RF acetaminophen 500 mg tablet 1 - 2 tab PO Q6H PRN (Reason: Pain) 0RF omeprazole 20 mg capsule,delayed release(DR/EC) 1 cap PO DAILY 0RF liruvhrtfc-bvhfxhucjmiaz-oxul [Fioricet] 50-300-40 mg capsule 1 cap PO Q6H PRN (Reason: pain) 5 Days Qty: 20 0RF cyclobenzaprine 10 mg tablet 10 mg PO TID PRN (Reason: muscle spasm) Qty: 14 0RF lisinopril 20 mg tablet 20 mg PO DAILY Qty: 30 0RF cyclobenzaprine 10 mg tablet 10 mg PO Q8H PRN (Reason: Muscle spasm) Qty: 14 0RF acetaminophen [Tylenol Extra Strength] 500 mg tablet 1,000 mg PO QID PRN (Reason: fever or pain) Qty: 14 0RF celecoxib [Celebrex] 200 mg capsule 200 mg PO BID 30 Days Qty: 60 12RF triamcinolone acetonide 0.5 % cream 1 appl topical BID Qty: 15 0RF Print Language: Irish
== END 2021-09-05 22:40 | disposition home or self-care (01) ==
PROVIDERS: Emergency Provider Internal Medicine
DX: R79.89 Other specified abnormal findings of blood chemistry (principal); I10 Essential (primary) hypertension; Z87.891 Personal history of nicotine dependence; Z79.899 Other long term (current) drug therapy
CPT/HCPCS: 99283

== ENCOUNTER 2021-10-20 11:00 | Outpatient (RCR) | payer MEDICAID, SELFPAY | END 2021-11-19 08:42 | disposition home or self-care (01) | LOC: HO.PT 11:00 | PROVIDERS: PCP Internal Medicine; Visit Provider Internal Medicine | DX: M54.2 Cervicalgia (principal) | CPT/HCPCS: 97110; 97140; 97161 ==

== ENCOUNTER → 2022-01-04 09:46 | Outpatient (BNVA) | payer MEDICAID, SELFPAY | PROVIDERS: PCP General Practice; Visit Provider Nurse Practitioner Family | DX: M25.512 Pain in left shoulder (principal); M62.838 Other muscle spasm | CPT/HCPCS: 99212 ==

== ENCOUNTER → 2022-01-11 10:43 | Outpatient (BNVA) | payer MEDICAID, SELFPAY | PROVIDERS: PCP General Practice; Referring Provider General Practice; Visit Provider Nurse Practitioner Family | DX: K21.9 Gastro-esophageal reflux disease without esophagitis (principal); R10.9 Unspecified abdominal pain; Z12.11 Encounter for screening for malignant neoplasm of colon | CPT/HCPCS: 99202; 99212 ==

== ENCOUNTER → 2022-04-18 13:20 | Outpatient (BNVA) | payer MEDICARE, MEDICAID, SELFPAY | PROVIDERS: PCP General Practice; Visit Provider Anesthesiology | DX: M15.9 Polyosteoarthritis, unspecified (principal); M47.816 Spondylosis without myelopathy or radiculopathy, lumbar region; M17.0 Bilateral primary osteoarthritis of knee; G89.4 Chronic pain syndrome | CPT/HCPCS: 99212 ==

== ENCOUNTER 2022-05-29 09:24 | Emergency (ER) | payer OTHER, SELFPAY ==
[2022-05-29 09:28] VITALS: BP 138/68; PULSE 72; RESP 17; TEMP 36.6; O2SAT 98; BMI 26.9
[2022-05-29 09:43] LABS: MANUAL DIFF FLAG NO
[2022-05-29 09:55] LABS: Basophils Absolute Auto 0.1 X10*3/uL (0.0-0.2); Basophils Percent Auto 0.8 % (0-2); Eosinophils Absolute Auto 0.1 X10*3/uL (0.0-0.4); Eosinophils Percent Auto 1.5 % (0-4); Hemoglobin 14.1 g/dl (12.0-16.0); Imm Gran Abs Auto 0.04 X10*3/uL (0.00-0.03); Imm Gran Pct Auto 0.4 % (0.0-0.4); Lymphocytes Absolute Auto 3.5 X10*3/uL (1.2-4.9); Lymphocytes Percent Auto 38.8 % (20-40); Mean Corpuscular HGB Conc 34.4 g/dl (31.0-35.0); Mean Corpuscular Hemoglobin 32.3 pg (27.0-33.0); Mean Platelet Volume 10.3 fL (9.4-12.3); Monocytes Absolute Auto 0.4 X10*3/uL (0.1-1.2); Monocytes Percent Auto 4.6 % (2-11); Neutrophils Absolute Auto 4.9 x10*3/uL (2.0-8.3); Neutrophils Percent Auto 53.9 % (45-73); Platelet Count 330 X10*3/uL (160-400); Red Blood Count 4.36 X10*6/uL (4.20-5.50); Red Cell Distribution Width 12.6 % (11.0-16.0); White Blood Count 9.1 X10*3/uL (4.8-10.8)
[2022-05-29 10:01] LABS: Appearance Urine Clear; Color Urine Yellow; Glucose Urine UA Negative (Negative); Leukocyte Esterase Urine Moderate (2+) (Negative); Nitrite Urine Negative (Negative); PH 5.5 (5.0-9.0); Specific Gravity - Urine 1.015 (1.005-1.025); UMIC TRIGGER UACC YES; Urine Blood Negative (Negative); Urine Ketones Negative (Negative); Urine Protein Negative (Neg-Trace)
[2022-05-29 10:12] LABS: Alanine Aminotransferase 21 U/L (0-31); Albumin Level 4.4 g/dL (3.5-5.0); Alkaline Phosphatase 116 U/L (39-117); Anion Gap 16 (12-20); Aspartate Amino Transferase 16 U/L (5-31); Bilirubin Direct 0.2 mg/dL (0.0-0.5); Bilirubin Total 0.6 mg/dL (0.0-1.0); Blood Urea Nitrogen 13 mg/dL (9-16); Calcium 9.3 mg/dL (8.4-10.2); Carbon Dioxide 20 mmol/L (22-29); Chloride 107 mmol/L (96-108); Creatinine Clr Calc Pharmacy 69.6; Estimated Glomerular Filt Rate > 60; Glucose Random 130 mg/dL (60-115); Lipase 13 U/L (8-78); Potassium 4.3 mmol/L (3.3-5.1); Sodium 139 mmol/L (135-145); Total Protein 6.6 g/dL (6.5-8.0)
[2022-05-29 10:28] LABS: Bacteria Urine None Seen (None Seen); Hyaline Casts Urine 0-2 /LPF (0-2); RBC Urine 0-2 /HPF (0-2); UACC Culture Trigger YES
--- NOTE | 2022-05-29 13:24 | ED.ABDPAIN ---
HPI - Abdominal Pain General Chief Complaint: Abdominal Pain Stated Complaint: Abd pain Time Seen by Provider: 05/29/22 13:23 Source: patient Mode of arrival: ambulatory Limitations: no limitations History of Present Illness HPI narrative: 61 yo Malaysian speaking female with history of chronic pain syndrome, osteoarthritis, DM, HTN presents to the ER from home c/o 2 days of intermittent epigastric pain and loose stools. She feels like she has a GI bug that is going around. She has been nauseated but not vomiting. The epigastric pains come and go and are cramping in nature. No urinary symptoms. No fever or chills. No SOB or chest pain. MD elicited complaint: abdominal pain Pertinent past history: none Onset (ago): day(s) (2) Pain Consistency: constant Location: epigastric Severity: moderate Quality: cramping and stabbing Radiation: none Migration to: no migration Exacerbating factors: nothing Relieving factors: nothing Associated symptoms: nausea and diarrhea Related Data Home Medications Medication Instructions Recorded Confirmed metformin 500 mg tablet 1 tab PO BID 07/12/21 05/17/22 omeprazole 20 mg capsule,delayed 1 cap PO DAILY 07/12/21 05/17/22 release diclofenac sodium 1 % topical gel 2 g topical QID 05/17/22 05/17/22 famotidine 20 mg tablet 1 tab PO BID 05/17/22 05/17/22 hydrochlorothiazide 12.5 mg tablet 1 tab PO QAM blood pressure 05/17/22 05/17/22 lisinopril 40 mg tablet 1 tab PO DAILY 05/17/22 05/17/22 metoprolol succinate 25 mg 1 tab PO DAILY 05/17/22 05/17/22 tablet,extended release 24 hr Previous Rx's Medication Instructions Recorded triamcinolone acetonide 0.5 % 1 appl topical BID #15 grams 03/16/21 topical cream lozohfltax-jsbapxqsxzxys-rziwoudg 1 cap PO Q6H PRN pain 5 days #20 05/20/21 50 mg-300 mg-40 mg capsule caps (Fioricet) acetaminophen 500 mg tablet 1,000 mg PO QID PRN fever or pain 08/10/21 (Tylenol Extra Strength) #14 tabs baclofen 5 mg tablet 5 mg PO BID PRN muscle spasm #60 01/04/22 tabs bisacodyl 5 mg tablet,delayed 10 mg PO ONCE 1 day #2 tabs 01/11/22 release (Dulcolax (bisacodyl)) polyethylene glycol 3350 17 238 g PO ONCE #238 grams 01/11/22 gram/dose oral powder (Miralax) celecoxib 200 mg capsule 200 mg PO BID 30 days #60 caps 05/18/22 celecoxib 200 mg capsule (Celebrex) 200 mg PO BID 30 days #60 caps 05/18/22 ondansetron 4 mg disintegrating 4 mg PO Q8H PRN nausea and 05/29/22 tablet vomiting #7 tabs Allergies Allergy/AdvReac Type Severity Reaction Status Date / Time No Known Allergies Allergy Verified 04/18/22 13:34 Review of Systems Review of Systems Constitutional: No Fever, No Chills ENT/Mouth: No sore throat, No Rhinorrhea, No swallowing difficulty Cardiovascular: No Chest Pain, No SOB Respiratory: No Cough, No Sputum Gastrointestinal: + Nausea, No Vomiting, +Diarrhea, + abdominal Pain, No Hematochezia, No Melena Genitourinary: No Dysuria, No Urinary Frequency, No Hematuria Musculoskeletal: No joint pain, No Myalgias Skin: No Skin Lesions, No rash Neuro: No Weakness, No Numbness, No Dizziness, No Headache Psych: + Anxiety/Panic, No Depression Heme/Lymph: No Bruising, No Lymphadenopathy PMFSH Past Medical History Medical History Arterial insufficiency of lower extremity Back pain Chronic pain syndrome DDD (degenerative disc disease), cervical Depression Diabetes Generalized osteoarthritis GERD (gastroesophageal reflux disease) Herpes labialis HTN (hypertension) Hyperlipidemia On beta radha at home Osteoarthritis of knees, bilateral Osteoarthritis of left knee Severe arterial insufficiency of right lower extremity Spondylosis of lumbar spine Weakness of both lower extremities Weakness of left lower extremity Surgical History Hx laparoscopic cholecystectomy Hx of section Social History Social History Alcohol intake: never Patient Tobacco Use Status: Former Tobacco user Advance Directives: No Advance Directives Information Provided: Yes Physical Exam ED Vital Signs: Vital Signs - 24 hr 05/29/22 09:28 Temperature 98 F Pulse Rate 72 Respiratory Rate 17 Blood Pressure 138/68 Pulse Oximetry 98 BMI result Body Mass Index 26.9 Appearance: Alert. Oriented X3. No acute distress. Eyes: Pupils equal, round and reactive to light. ENT: Pharynx normal. Neck: Normal inspection. Neck supple. CVS: Normal heart rate and rhythm. Pulses normal. Respiratory: No respiratory distress. Breath sounds normal. Abdomen: Soft with mild epigastric tenderness without rebound or guarding, no RUQ tenderness. normal BS x4 Skin: Skin warm and dry. Normal skin color. Normal skin turgor. No rashes. Extremities: No lower extremity edema. Neuro: Oriented X 3. No motor deficit. No sensory deficit. Course Course Course Narrative: 61 yo female with history of chronic pain syndrome, OA, DM, HTN here with epigastric abdominal pain and diarrhea. Exam is benign. Labs show normal LFTs and lipase. Will give GI cocktail and reassess. Will r/o cardiac etiology with EKG and troponin. Reevaluation(s) Reevaluation #1: EKG is without ischemic changes and troponin is 3.5, reassuring against any sort of cardiac etiology. She is feeling better after GI cocktail. At this time comfortable DC home with treatment for gastroenteritis and possible gastritis. Dietary modifications discussed, p.r.n. Zofran ordered at the pharmacy. Stable for DC MDM - Abdominal Pain Medical Records Attestation: I reviewed the patient's medical records. Lab Data Attestation: I reviewed the patient's lab results. Result diagrams: 05/29/22 09:39 05/29/22 09:39 Labs: Lab Results 05/29/22 05/29/22 05/29/22 Range/Units 09:39 09:39 09:39 WBC 9.1 (4.8-10.8) X10*3/uL RBC 4.36 (4.20-5.50) X10*6/uL Hgb 14.1 (12.0-16.0) g/dl Hct 41.0 (37.0-47.0) % MCV 94.0 (80.0-98.0) fL MCH 32.3 (27.0-33.0) pg MCHC 34.4 (31.0-35.0) g/dl RDW 12.6 (11.0-16.0) % Plt Count 330 (160-400) X10*3/uL MPV 10.3 (9.4-12.3) fL Immature Gran % (Auto) 0.4 (0.0-0.4) % Neut % (Auto) 53.9 (45-73) % Lymph % (Auto) 38.8 (20-40) % [place] % (Auto) 4.6 (2-11) % Eos % (Auto) 1.5 (0-4) % Baso % (Auto) 0.8 (0-2) % Lymph # (Auto) 3.5 (1.2-4.9) X10*3/uL [place] # (Auto) 0.4 (0.1-1.2) X10*3/uL Eos # (Auto) 0.1 (0.0-0.4) X10*3/uL Baso # (Auto) 0.1 (0.0-0.2) X10*3/uL Abs Immat Gran (auto) 0.04 H (0.00-0.03) X10*3/uL Absolute Neuts (auto) 4.9 (2.0-8.3) x10*3/uL Absolute Nucleated RBC 0.000 (0.0-0.012) X10*3/uL Nucleated RBC % (auto) 0.0 (0.0-0.2) /100WBC Sodium 139 (135-145) mmol/L Potassium 4.3 (3.3-5.1) mmol/L Chloride 107 (96-108) mmol/L Carbon Dioxide 20 L (22-29) mmol/L Anion Gap 16 (12-20) BUN 13 (9-16) mg/dL Creatinine 0.71 (0.5-1.4) mg/dL Estim Creat Clear Calc 69.6 Estimated GFR > 60 POC Glucose (60-115) mg/dL Random Glucose 130 H (60-115) mg/dL Calcium 9.3 (8.4-10.2) mg/dL Total Bilirubin 0.6 (0.0-1.0) mg/dL Direct Bilirubin 0.2 (0.0-0.5) mg/dL AST 16 (5-31) U/L ALT 21 (0-31) U/L Alkaline Phosphatase 116 (39-117) U/L Troponin I High Sens (<3.5-17.0) ng/L Total Protein 6.6 (6.5-8.0) g/dL Albumin 4.4 (3.5-5.0) g/dL Lipase 13 (8-78) U/L Urine Color Yellow Urine Appearance Clear Urine pH 5.5 (5.0-9.0) Ur Specific [place] 1.015 (1.005-1.025) Urine Protein Negative (Neg-Trace) mg/dL Urine Glucose (UA) Negative (Negative) mg/dL Urine Ketones Negative (Negative) mg/dL Urine Blood Negative (Negative) Urine Nitrite Negative (Negative) Ur Leukocyte Esterase Moderate (2+) H (Negative) Urine RBC 0-2 (0-2) /HPF Urine WBC 6-10 H (0-5) /HPF Ur Squamous Epith Cells 3-5 (0-2) /HPF Urine Bacteria None Seen (None Seen) Hyaline Casts 0-2 (0-2) /LPF 05/29/22 05/29/22 Range/Units 09:39 14:11 WBC (4.8-10.8) X10*3/uL RBC (4.20-5.50) X10*6/uL Hgb (12.0-16.0) g/dl Hct (37.0-47.0) % MCV (80.0-98.0) fL MCH (27.0-33.0) pg MCHC (31.0-35.0) g/dl RDW (11.0-16.0) % Plt Count (160-400) X10*3/uL MPV (9.4-12.3) fL Immature Gran % (Auto) (0.0-0.4) % Neut % (Auto) (45-73) % Lymph % (Auto) (20-40) % [place] % (Auto) (2-11) % Eos % (Auto) (0-4) % Baso % (Auto) (0-2) % Lymph # (Auto) (1.2-4.9) X10*3/uL [place] # (Auto) (0.1-1.2) X10*3/uL Eos # (Auto) (0.0-0.4) X10*3/uL Baso # (Auto) (0.0-0.2) X10*3/uL Abs Immat Gran (auto) (0.00-0.03) X10*3/uL Absolute Neuts (auto) (2.0-8.3) x10*3/uL Absolute Nucleated RBC (0.0-0.012) X10*3/uL Nucleated RBC % (auto) (0.0-0.2) /100WBC Sodium (135-145) mmol/L Potassium (3.3-5.1) mmol/L Chloride (96-108) mmol/L Carbon Dioxide (22-29) mmol/L Anion Gap (12-20) BUN (9-16) mg/dL Creatinine (0.5-1.4) mg/dL Estim Creat Clear Calc Estimated GFR POC Glucose 151 H (60-115) mg/dL Random Glucose (60-115) mg/dL Calcium (8.4-10.2) mg/dL Total Bilirubin (0.0-1.0) mg/dL Direct Bilirubin (0.0-0.5) mg/dL AST (5-31) U/L ALT (0-31) U/L Alkaline Phosphatase (39-117) U/L Troponin I High Sens 3.5 (<3.5-17.0) ng/L Total Protein (6.5-8.0) g/dL Albumin (3.5-5.0) g/dL Lipase (8-78) U/L Urine Color Urine Appearance Urine pH (5.0-9.0) Ur Specific [place] (1.005-1.025) Urine Protein (Neg-Trace) mg/dL Urine Glucose (UA) (Negative) mg/dL Urine Ketones (Negative) mg/dL Urine Blood (Negative) Urine Nitrite (Negative) Ur Leukocyte Esterase (Negative) Urine RBC (0-2) /HPF Urine WBC (0-5) /HPF Ur Squamous Epith Cells (0-2) /HPF Urine Bacteria (None Seen) Hyaline Casts (0-2) /LPF ECG Data Attestation: I personally reviewed and interpreted this ECG as follows: ECG interpretation date: 05/29/22 ECG interpretation time: 14:30 Prior ECG tracings: available for review Interpretation: Sinus bradycardia, ventricular rate 51 beats per minute, normal MI interval, no ST segment elevations or depressions, T-wave inversion in lead 3 only. No significant changes from prior. Discharge Plan Discharge Clinical Impression: Gastroenteritis Patient Disposition: Home, Self-Care Instructions: Gastroenteritis (ED) Additional Instructions: Your lab workup today was unremarkable. Your urine test was negative for infection. You most likely have a viral GI bug also known as gastroenteritis. Treatment is supportive care, symptoms usually resolve on their own in 48-72 hours. Recommend rest and plenty of oral hydration. Stick to a bland diet like soup and toast while you are not feeling well. Take the prescribed medication as needed for nausea. Recommend over the counter Pepto Bismol or Imodium for upset stomach and diarrhea. Follow up with your doctor as needed. If you develop new or worsening symptoms call 911 or come back to the ER for further evaluation. Tu an?lisis de laboratorio de hoy no tuvo nada especial. Means an?lisis de orina micheline negativo para infecci?n. Lo m?s probable es que tenga un bicho GI viral, tambi?n conocido eric gastroenteritis. El tratamiento es atenci?n de apoyo, los s?ntomas generalmente se resuelven por s? solos en 48 a 72 horas. Recomendable reposo y gladis hidrataci?n oral. Siga yung dieta blanda eric sopa y tostadas mientras no se sienta roscoe. Oriental el medicamento recetado seg?n sea necesario para las n?useas. Recomiende Pepto Bismol o Imodium de venta mike para el malestar estomacal y la diarrea. Harman un seguimiento con means m?dico seg?n sea necesario. Si desarrolla s?ntomas nuevos o que empeoran, llame al 911 o regrese a la loki de emergencias para yung evaluaci?n adicional. Prescriptions: New ondansetron 4 mg tablet,disintegrating 4 mg PO Q8H PRN (Reason: nausea and vomiting) Qty: 7 0RF No Action celecoxib [Celebrex] 200 mg capsule 200 mg PO BID 30 Days Qty: 60 12RF celecoxib 200 mg capsule 200 mg PO BID 30 Days Qty: 60 8RF metformin 500 mg tablet 1 tab PO BID omeprazole 20 mg capsule,delayed release(DR/EC) 1 cap PO DAILY famotidine 20 mg tablet 1 tab PO BID metoprolol succinate 25 mg tablet extended release 24 hr 1 tab PO DAILY lisinopril 40 mg tablet 1 tab PO DAILY hydrochlorothiazide 12.5 mg tablet 1 tab PO QAM diclofenac sodium 1 % gel 2 g topical QID smhadgqdhl-oweuyytdpxlpt-nshu [Fioricet] 50-300-40 mg capsule 1 cap PO Q6H PRN (Reason: pain) 5 Days Qty: 20 0RF acetaminophen [Tylenol Extra Strength] 500 mg tablet 1,000 mg PO QID PRN (Reason: fever or pain) Qty: 14 0RF triamcinolone acetonide 0.5 % cream 1 appl topical BID Qty: 15 0RF bisacodyl [Dulcolax (bisacodyl)] 5 mg tablet,delayed release (DR/EC) 10 mg PO ONCE 1 Days Qty: 2 0RF Rx Instructions: take 2 tabs at noon the day before your colonoscopy polyethylene glycol 3350 [Miralax] 17 gram/dose powder 238 g PO ONCE Qty: 238 0RF Rx Instructions: As directed by gastroenterology department at [facility] baclofen 5 mg tablet 5 mg PO BID PRN (Reason: muscle spasm) Qty: 60 0RF Print Language: Malaysian
--- NOTE | 2022-05-29 13:25 | ECG_ITS ---
Test Reason : ABD PAIN Blood Pressure : / mmHG Vent. Rate : 051 BPM Atrial Rate : 051 BPM P-R Int : 164 ms QRS Dur : 098 ms QT Int : 428 ms P-R-T Axes : 057 036 005 degrees QTc Int : 394 ms Sinus bradycardia Nonspecific T wave abnormality Abnormal ECG When compared with ECG of 10-AUG-2021 14:19, No significant change was found Referred By: Teodora Blount Electronically Signed By:VIOLETA CROSS MD
[2022-05-29] MEDS: Lidocaine HCl Viscous 2 % 15 ML SOLUTION MUCOUS MEM (13:33)
[2022-05-29] MEDS: Magnesium Hydrox/Alum Hydrox 30 ML ORAL.SUSP PO (13:33)
[2022-05-29] MEDS: PHENobarb/Hyoscy/Atropine/Scop 10 ML ELIXIR PO (14:06)
[2022-05-29 14:07] LABS: Troponin-I High Sensitivity 3.5 ng/L (<3.5-17.0)
[2022-05-29 14:15] LABS: Glucose, Whole Blood 151 mg/dL (60-115)
== END 2022-05-29 14:50 | disposition home or self-care (01) ==
PROVIDERS: Emergency Provider Emergency Medicine; PCP General Practice
DX: K52.9 Noninfective gastroenteritis and colitis, unspecified (principal); R07.89 Other chest pain; Z87.891 Personal history of nicotine dependence; Z79.899 Other long term (current) drug therapy
CPT/HCPCS: 36415; 80048; 80076; 81001; 81003; 82947; 83690; 84484; 85025; 87086; 87147; 93005; 99284

== ENCOUNTER 2022-07-21 12:11 | Emergency (ER) | payer OTHER, SELFPAY ==
--- NOTE | ~2022-07-21 | XR_ITS ---
EXAMINATION: XR CHEST CLINICAL INFORMATION: Covid positive COMPARISON: 08/10/2021 TECHNIQUE: 2 views of the chest were obtained. FINDINGS: No significant abnormality is noted involving the heart, lungs, mediastinum, bony thorax or soft tissues. XR/XR chest 2V IMPRESSION: Unremarkable examination.
[2022-07-21 12:51] VITALS: BP 130/63; PULSE 54; RESP 16; TEMP 35.8; O2SAT 97; BMI 28.1
--- NOTE | 2022-07-21 12:53 | ED.SOB ---
HPI - SOB/Dyspnea General Chief Complaint: Upper Respiratory Symptoms <JEWEL Terrell - Last Filed: 07/21/22 12:59> Stated Complaint: COVID + sob <JEWEL Terrell - Last Filed: 07/21/22 12:59> Time Seen by Provider: 07/21/22 15:00 <JEWEL Terrell - Last Filed: 07/21/22 12:59> Source: patient and freelance interpreter/translator <JEWEL Vega - Last Filed: 07/21/22 15:15> Mode of arrival: ambulatory <JEWEL Vega - Last Filed: 07/21/22 15:15> Limitations: no limitations <JEWEL Vega Last Filed: 07/21/22 15:15> History of Present Illness HPI Narrative: 62-year-old female presents to the ER for evaluation of cough and associated shortness of breath after being diagnosed with COVID 4 days ago. She is vaccinated x3. She states she got vbjr-rnz-vhptutm cough medications with minimal improvement in her symptoms. she denies any fever, chills, nausea, vomiting, chest pain. She does have associated body aches. She denies any pulmonary history, no known lung disease. She is a nonsmoker. <JEWEL Vega - Last Filed: 07/21/22 15:15> MD elicited complaint: shortness of breath and cough <JEWEL Vega - Last Filed: 07/21/22 15:15> Onset (ago): day(s) <JEWEL Vega - Last Filed: 07/21/22 15:15> Context: recent illness <JEWEL Vega - Last Filed: 07/21/22 15:15> Timing: intermittent <JEWEL Vega - Last Filed: 07/21/22 15:15> Severity: moderate <JEWEL Vega Last Filed: 07/21/22 15:15> Exacerbating factors: exertion and coughing <JEWEL Vega Last Filed: 07/21/22 15:15> Relieving factors: rest and medication <JEWEL Vega Last Filed: 07/21/22 15:15> Associated symptoms: cough and chest congestion <JEWEL Vega - Last Filed: 07/21/22 15:15> Treatment prior to arrival: none <JEWEL Vega - Last Filed: 07/21/22 15:15> Related Data Home Medications: Home Medications Medication Instructions Recorded Confirmed metformin 500 mg tablet 1 tab PO BID 07/12/21 05/17/22 omeprazole 20 mg capsule,delayed 1 cap PO DAILY 07/12/21 05/17/22 release diclofenac sodium 1 % topical gel 2 g topical QID 05/17/22 05/17/22 famotidine 20 mg tablet 1 tab PO BID 05/17/22 05/17/22 hydrochlorothiazide 12.5 mg tablet 1 tab PO QAM blood pressure 05/17/22 05/17/22 lisinopril 40 mg tablet 1 tab PO DAILY 05/17/22 05/17/22 metoprolol succinate 25 mg 1 tab PO DAILY 05/17/22 05/17/22 tablet,extended release 24 hr Previous Rx's Medication Instructions Recorded triamcinolone acetonide 0.5 % 1 appl topical BID #15 grams 03/16/21 topical cream xgkseshqat-hhkqrxlawhmxp-epmahnel 1 cap PO Q6H PRN pain 5 days #20 05/20/21 50 mg-300 mg-40 mg capsule caps (Fioricet) acetaminophen 500 mg tablet 1,000 mg PO QID PRN fever or pain 08/10/21 (Tylenol Extra Strength) #14 tabs baclofen 5 mg tablet 5 mg PO BID PRN muscle spasm #60 01/04/22 tabs bisacodyl 5 mg tablet,delayed 10 mg PO ONCE 1 day #2 tabs 01/11/22 release (Dulcolax (bisacodyl)) polyethylene glycol 3350 17 238 g PO ONCE #238 grams 01/11/22 gram/dose oral powder (Miralax) celecoxib 200 mg capsule 200 mg PO BID 30 days #60 caps 05/18/22 celecoxib 200 mg capsule (Celebrex) 200 mg PO BID 30 days #60 caps 05/18/22 ondansetron 4 mg disintegrating 4 mg PO Q8H PRN nausea and 05/29/22 tablet vomiting #7 tabs <JEWEL Terrell - Last Filed: 07/21/22 12:59> Allergies/Adverse Reactions: Allergies Allergy/AdvReac Type Severity Reaction Status Date / Time No Known Allergies Allergy Verified 04/18/22 13:34 <JEWEL Terrell - Last Filed: 07/21/22 12:59> Review of Systems Review of Systems: Constitutional: No Fever, No Chills ENT/Mouth: No sore throat, No Rhinorrhea Cardiovascular: No Chest Pain, +SOB, No Orthopnea, No Edema Respiratory: + Cough, + Sputum, No Wheezing, No dyspnea Gastrointestinal: No Nausea, No Vomiting, No Diarrhea, No abdominal Pain Musculoskeletal: + joint pain, + Myalgias Skin: No Skin Lesions, No rash Neuro: No Weakness, No Dizziness, No Headache Psych: + Anxiety/Panic Heme/Lymph: No Bruising, No Lymphadenopathy <JEWEL Vega - Last Filed: 07/21/22 15:15> [facility] Past Medical History Medical History: Medical History Arterial insufficiency of lower extremity Back pain Chronic pain syndrome DDD (degenerative disc disease), cervical Depression Diabetes Generalized osteoarthritis GERD (gastroesophageal reflux disease) Herpes labialis HTN (hypertension) Hyperlipidemia On beta radha at home Osteoarthritis of knees, bilateral Osteoarthritis of left knee Severe arterial insufficiency of right lower extremity Spondylosis of lumbar spine Weakness of both lower extremities Weakness of left lower extremity <JEWEL Terrell - Last Filed: 07/21/22 12:59> Surgical History: Surgical History Hx laparoscopic cholecystectomy Hx of section <JEWEL Terrell - Last Filed: 07/21/22 12:59> Social History Social History: Social History Alcohol intake: never Patient Tobacco Use Status: Former Tobacco user Advance Directives: No Advance Directives Information Provided: Yes <JEWEL Terrell - Last Filed: 07/21/22 12:59> Physical Exam Vital Signs: Vital Signs: Last Vital Signs Temp 96.4 F L 07/21/22 12:51 Pulse 54 07/21/22 12:51 Resp 16 07/21/22 12:51 BP 130/63 07/21/22 12:51 Pulse Ox 97 07/21/22 12:51 O2 Del Method 07/21/22 12:51 BMI result Body Mass Index 28.1 <JEWEL Terrell - Last Filed: 07/21/22 12:59> Vital Signs: Last Vital Signs Temp 96.4 F L 07/21/22 12:51 Pulse 54 07/21/22 12:51 Resp 16 07/21/22 12:51 BP 130/63 07/21/22 12:51 Pulse Ox 97 07/21/22 12:51 O2 Del Method 07/21/22 12:51 BMI result Body Mass Index 28.1 <JEWEL Vega - Last Filed: 07/21/22 15:15> Appearance: Alert. Oriented X3. No acute distress. Eyes: Pupils equal, round and reactive to light. ENT: Pharynx normal. Neck: Normal inspection. Neck supple. CVS: Normal heart rate and rhythm. Pulses normal. Respiratory: No respiratory distress. Speaking in complete sentences. Breath sounds normal. Skin: Skin warm and dry. Normal skin color. Normal skin turgor. No rashes. Extremities: No lower extremity edema. No calf tenderness Neuro: Oriented X 3. Nonfocal. <JEWEL Vega - Last Filed: 07/21/22 15:15> Course Course Course Narrative: RME-13PM 62yoF c PMHx of DM On started feeling sick then went to a clinic on Monday and tested + for COVID-19 and since then has been having worsening cough/sputum production and SOB. Plan: CXR. Patient is stable. Vital signs are stable. She will be sent back to the waiting room for further evaluation and treatment emergency medical care. <JEWEL Terrell - Last Filed: 07/21/22 12:59> Reevaluation(s) Reevaluation #1: patient seen and examined. She is speaking complete sentences in no respiratory distress. Her vital signs are stable with SpO2 97% on room air. Chest x-ray is clear. No evidence of pneumonia. Her lungs are clear on auscultation. She just purchased an antitussive and cough medication from the pharmacy. patient counseled on management of her symptoms. She was also given return precautions. She expressed understanding. parts interpreter used answer all questions. Stable for discharge home <JEWEL Vega - Last Filed: 07/21/22 15:15> Discharge Plan Discharge Clinical Impression: COVID-19 <JEWEL Terrell - Last Filed: 07/21/22 12:59> Patient Disposition: Home, Self-Care <JEWEL Terrell - Last Filed: 07/21/22 12:59> Instructions: Covid-19 Viral Syndrome and Novel Coronavirus (ED) Hey/Ath <JEWEL Terrell - Last Filed: 07/21/22 12:59> Additional Instructions: Your chest x-ray and oxygen levels were normal. Rest. Drink plenty of fluids. Do not go out in public while you are not feeling well. Take over the counter cold/flu medications as needed for your symptoms. Take Tylenol and/or Motrin as needed for fevers and body aches. Follow up with your doctor this week. If you shortness of breath worsens , if you develop difficulty breathing or any other concerning symptom come back to the ER for further evaluation. Quiros radiograf?a de t?rax y los niveles de ox?walt fueron normales. [place]. Beber mucho l?quido. No salga en p?blico mientras no se sienta roscoe. Ullin medicamentos de venta mike para el resfriado o la gripe seg?n sea necesario para parish s?ntomas. Ullin Tylenol y/o Motrin seg?n sea necesario para la fiebre y los adore corporales. Harman un seguimiento con quiros m?dico esta semana. Si quiros dificultad para respirar empeora, si desarrolla dificultad para respirar o cualquier otro s?ntoma preocupante, regrese a la loik de emergencias para yung evaluaci?n adicional. <JEWEL Terrell - Last Filed: 07/21/22 12:59> Prescriptions: No Action celecoxib [Celebrex] 200 mg capsule 200 mg PO BID 30 Days Qty: 60 12RF celecoxib 200 mg capsule 200 mg PO BID 30 Days Qty: 60 8RF metformin 500 mg tablet 1 tab PO BID omeprazole 20 mg capsule,delayed release(DR/EC) 1 cap PO DAILY famotidine 20 mg tablet 1 tab PO BID metoprolol succinate 25 mg tablet extended release 24 hr 1 tab PO DAILY lisinopril 40 mg tablet 1 tab PO DAILY hydrochlorothiazide 12.5 mg tablet 1 tab PO QAM diclofenac sodium 1 % gel 2 g topical QID ondansetron 4 mg tablet,disintegrating 4 mg PO Q8H PRN (Reason: nausea and vomiting) Qty: 7 0RF fqpyarfnao-rfpvpwgmedwqz-buez [Fioricet] 50-300-40 mg capsule 1 cap PO Q6H PRN (Reason: pain) 5 Days Qty: 20 0RF acetaminophen [Tylenol Extra Strength] 500 mg tablet 1,000 mg PO QID PRN (Reason: fever or pain) Qty: 14 0RF triamcinolone acetonide 0.5 % cream 1 appl topical BID Qty: 15 0RF bisacodyl [Dulcolax (bisacodyl)] 5 mg tablet,delayed release (DR/EC) 10 mg PO ONCE 1 Days Qty: 2 0RF Rx Instructions: take 2 tabs at noon the day before your colonoscopy polyethylene glycol 3350 [Miralax] 17 gram/dose powder 238 g PO ONCE Qty: 238 0RF Rx Instructions: As directed by gastroenterology department at [facility] baclofen 5 mg tablet 5 mg PO BID PRN (Reason: muscle spasm) Qty: 60 0RF <JEWEL Terrell - Last Filed: 07/21/22 12:59> Referrals: Marianne Smith MD [Primary Care Provider] - <JEWEL Terrell - Last Filed: 07/21/22 12:59>
== END 2022-07-21 15:41 | disposition home or self-care (01) ==
PROVIDERS: Emergency Provider Student in an Organized Health Care Education/Training Program; PCP General Practice
DX: U07.1 COVID-19 (principal); R06.02 Shortness of breath; Z79.899 Other long term (current) drug therapy
CPT/HCPCS: 71046; 99282; 99283

== ENCOUNTER 2023-05-22 17:42 | Outpatient (REF) | payer OTHER, SELFPAY | END 2023-05-22 17:43 | disposition home or self-care (01) | LOC: HO.LNP 17:42 | PROVIDERS: Visit Provider Emergency Medicine | DX: N30.00 Acute cystitis without hematuria (principal) | CPT/HCPCS: 87086; 87147 ==

== ENCOUNTER 2023-06-02 14:01 | Outpatient (REF) | payer OTHER, SELFPAY ==
[2023-06-02 16:26] LABS: Alanine Aminotransferase 11 U/L (0-31); Albumin Level 4.2 g/dL (3.5-5.0); Alkaline Phosphatase 115 U/L (39-117); Anion Gap 12 (12-20); Aspartate Amino Transferase 12 U/L (5-31); Bilirubin Total 0.5 mg/dL (0.0-1.0); Blood Urea Nitrogen 13 mg/dL (9-16); Calcium 10.7 mg/dL (8.4-10.2); Carbon Dioxide 24 mmol/L (22-29); Chloride 106 mmol/L (96-108); Estimated Glomerular Filt Rate > 60; Glucose Random 110 mg/dL (60-115); Potassium 4.2 mmol/L (3.3-5.1); Sodium 138 mmol/L (135-145); Total Protein 7.3 g/dL (6.5-8.0)
== END 2023-06-02 14:02 | disposition home or self-care (01) ==
LOC: HO.HHCL 14:01
PROVIDERS: Visit Provider Registered Nurse
DX: R39.9 Unspecified symptoms and signs involving the genitourinary system (principal)
CPT/HCPCS: 36415; 80053; 87086

== ENCOUNTER 2023-06-08 10:21 | Outpatient (REF) | payer OTHER, SELFPAY ==
[2023-06-08 13:29] LABS: Anion Gap 11 (12-20); Blood Urea Nitrogen 12 mg/dL (9-16); Calcium 9.5 mg/dL (8.4-10.2); Carbon Dioxide 25 mmol/L (22-29); Chloride 107 mmol/L (96-108); Estimated Glomerular Filt Rate > 60; Glucose Random 226 mg/dL (60-115); Potassium 3.7 mmol/L (3.3-5.1); Sodium 139 mmol/L (135-145)
[2023-06-09 17:49] LABS: Calcium (PTHI) 9.5 mg/dL (8.6-10.4); PTHI 30 pg/mL (16-77)
== END 2023-06-08 10:22 | disposition home or self-care (01) ==
LOC: HO.HHCL 10:21
PROVIDERS: Visit Provider Registered Nurse
DX: E83.52 Hypercalcemia (principal)
CPT/HCPCS: 36415; 80048; 83970

== ENCOUNTER 2023-06-20 10:02 | Outpatient (REF) | payer OTHER, SELFPAY ==
--- NOTE | ~2023-06-20 | MM_ITS ---
EXAMINATION: MM SCREENING DIGITAL BREAST TOMOSYNTHESIS, BILATERAL CLINICAL INFORMATION: Screening. Asymptomatic. COMPARISON: Mammography: This study is compared with prior exams dating back to 2015. TECHNIQUE: Digital breast tomosynthesis is performed in both the craniocaudal and mediolateral oblique views along with computer-aided detection (CAD). Synthesized 2D images are generated from the tomosynthesis. FINDINGS: There are scattered areas of fibroglandular density (ACR BI-RADS breast composition Category b). There are no significant masses, abnormal calcifications, or other abnormalities. MM/MM tomosynthesis screening BI IMPRESSION: No mammographic evidence of malignancy. ASSESSMENT: BI-RADS BI-RADS 1 - Negative RECOMMENDATION: Routine annual mammography screening. 1 year F/U This examination should not preclude the clinical evaluation of a suspicious palpable abnormality. This patient's information was entered into a reminder system with a target due date for their next mammogram.
== END 2023-06-20 10:03 | disposition home or self-care (01) ==
LOC: HO.MAMMO 10:02
PROVIDERS: PCP General Practice; Visit Provider General Practice
DX: Z12.31 Encounter for screening mammogram for malignant neoplasm of breast (principal)
CPT/HCPCS: 77063; 77067

== ENCOUNTER → 2023-06-20 11:45 | Outpatient (BNV) | payer OTHER, SELFPAY | PROVIDERS: PCP General Practice; Visit Provider Radiology Diagnostic Radiology | DX: Z12.31 Encounter for screening mammogram for malignant neoplasm of breast (principal) | CPT/HCPCS: 77063; 77067 ==

== ENCOUNTER 2023-07-20 11:33 | Outpatient (REF) | payer OTHER, SELFPAY ==
[2023-07-20 13:48] LABS: Anion Gap 13 (12-20); Blood Urea Nitrogen 15 mg/dL (9-16); Calcium 9.8 mg/dL (8.4-10.2); Carbon Dioxide 24 mmol/L (22-29); Chloride 105 mmol/L (96-108); Estimated Glomerular Filt Rate > 60; Glucose Random 130 mg/dL (60-115); Sodium 138 mmol/L (135-145)
== END 2023-07-20 11:34 | disposition home or self-care (01) ==
LOC: HO.HHCL 11:33
PROVIDERS: Visit Provider Internal Medicine Cardiovascular Disease
DX: I87.323 Chronic venous hypertension (idiopathic) with inflammation of bilateral lower extremity (principal)
CPT/HCPCS: 36415; 80048

== ENCOUNTER 2023-11-07 11:47 | Outpatient (REF) | payer OTHER, SELFPAY ==
[2023-11-07 19:24] LABS: Alanine Aminotransferase 15 U/L (0-31); Albumin Level 4.1 g/dL (3.5-5.0); Alkaline Phosphatase 115 U/L (39-117); Anion Gap 11 (12-20); Aspartate Amino Transferase 18 U/L (5-31); Bilirubin Total 0.9 mg/dL (0.0-1.0); Blood Urea Nitrogen 15 mg/dL (9-16); Calcium 9.8 mg/dL (8.4-10.2); Carbon Dioxide 25 mmol/L (22-29); Chloride 109 mmol/L (96-108); Cholesterol 158 mg/dL (<200); Estimated Glomerular Filt Rate > 60; Glucose Random 101 mg/dL (60-115); HDL Cholesterol 39 mg/dL (>40); LDL Cholesterol Calculated 80 mg/dL (<100); Potassium 4.2 mmol/L (3.3-5.1); Sodium 141 mmol/L (135-145); Total Protein 6.9 g/dL (6.5-8.0); Triglycerides 197 mg/dL (<150)
[2023-11-07 19:44] LABS: Creatinine Urine 227.27 mg/dL; Microalbum/Creatinine Ratio Ur 12.7 ug/mg cr (<30)
[2023-11-08 07:55] LABS: HIV AB/AG Nonreactive (Nonreactive); HIV Num 1 0.05 S/CO (0.00-0.99); ~HepC Num1 0.27 S/CO (0.00-0.79); ~Hepatitis C Antibody Nonreactive (Nonreactive)
== END 2023-11-07 11:48 | disposition home or self-care (01) ==
LOC: HO.HHCL 11:47
PROVIDERS: Visit Provider General Practice
DX: E11.69 Type 2 diabetes mellitus with other specified complication (principal)
CPT/HCPCS: 36415; 80053; 80061; 82043; 82570; 86803; 87389

== ENCOUNTER 2024-07-09 10:26 | Outpatient (REF) | payer OTHER, SELFPAY ==
--- NOTE | ~2024-07-09 | MM_ITS ---
EXAMINATION: MM SCREENING DIGITAL BREAST TOMOSYNTHESIS, BILATERAL CLINICAL INFORMATION: Screening. Asymptomatic. COMPARISON: Mammography: Comparison is made with available priors TECHNIQUE: Digital breast mammography with tomosynthesis is performed in both the craniocaudal and mediolateral oblique views along with computer-aided detection (CAD). FINDINGS: There are scattered areas of fibroglandular density (ACR BI-RADS breast composition Category b). There are no significant masses, abnormal calcifications, or other abnormalities. MM/MM tomosynthesis screening BI IMPRESSION: No mammographic evidence of malignancy. ASSESSMENT: BI-RADS BI-RADS 1 - Negative RECOMMENDATION: Routine annual mammography screening. 1 year F/U This examination should not preclude the clinical evaluation of a suspicious palpable abnormality. This patient's information was entered into a reminder system with a target due date for their next mammogram. Electronically signed by: Radha Narvaez DO 07/15/2024 05:25 PM AXEL
== END 2024-07-09 10:27 | disposition home or self-care (01) ==
LOC: HO.MAMMO 10:26
PROVIDERS: PCP General Practice; Visit Provider General Practice
DX: Z12.31 Encounter for screening mammogram for malignant neoplasm of breast (principal)
CPT/HCPCS: 77063; 77067

== ENCOUNTER → 2024-07-09 11:15 | Outpatient (BNV) | payer OTHER, SELFPAY | PROVIDERS: PCP General Practice; Visit Provider Internal Medicine | DX: Z12.31 Encounter for screening mammogram for malignant neoplasm of breast (principal) | CPT/HCPCS: 77063; 77067 ==

== ENCOUNTER 2025-01-08 12:03 | Emergency (ER) | payer OTHER, SELFPAY ==
[2025-01-08 12:48] VITALS: BP 146/62; PULSE 68; RESP 16; TEMP 36.7; O2SAT 94; BMI 29.6
[2025-01-08 13:10] LABS: MANUAL DIFF FLAG NO
[2025-01-08 13:12] LABS: Basophils Absolute Auto 0.1 X10*3/uL (0.0-0.2); Basophils Percent Auto 0.9 % (0-2); Eosinophils Absolute Auto 0.1 X10*3/uL (0.0-0.4); Eosinophils Percent Auto 1.2 % (0-4); Hematocrit 44.7 % (37.0-47.0); Hemoglobin 15.2 g/dl (12.0-16.0); Imm Gran Abs Auto 0.06 X10*3/uL (0.00-0.03); Imm Gran Pct Auto 0.5 % (0.0-0.4); Lymphocytes Absolute Auto 4.5 X10*3/uL (1.2-4.9); Lymphocytes Percent Auto 38.9 % (20-40); Mean Corpuscular Hemoglobin 31.9 pg (27.0-33.0); Mean Corpuscular Volume 93.9 fL (80.0-98.0); Mean Platelet Volume 10.4 fL (9.4-12.3); Monocytes Absolute Auto 0.8 X10*3/uL (0.1-1.2); Monocytes Percent Auto 6.6 % (2-11); Neutrophils Percent Auto 51.9 % (45-73); Platelet Count 288 X10*3/uL (160-400); Red Blood Count 4.76 X10*6/uL (4.20-5.50); Red Cell Distribution Width 12.6 % (11.0-16.0); White Blood Count 11.5 X10*3/uL (4.8-10.8)
[2025-01-08 13:40] LABS: Alanine Aminotransferase 15 U/L (0-31); Albumin Level 4.5 g/dL (3.5-5.0); Anion Gap 12 (12-20); Aspartate Amino Transferase 17 U/L (5-31); Bilirubin Total 0.7 mg/dL (0.0-1.0); Blood Urea Nitrogen 18 mg/dL (9-16); Carbon Dioxide 27 mmol/L (22-29); Chloride 107 mmol/L (96-108); Creatinine Clr Calc Pharmacy 87.1; Estimated Glomerular Filt Rate > 60; Glucose Random 98 mg/dL (60-115); Potassium 4.2 mmol/L (3.3-5.1); Sodium 142 mmol/L (135-145); Total Protein 7.1 g/dL (6.5-8.0)
--- OUTSIDE RECORDS SUMMARY | 2025-01-08 13:55 | XMS_ITS | Encounter Summary ---
Author Organization [employer] [facility] Address [address] [place] [address] Care Team Providers Care Material Movers Name Role Phone Marianne Smith MD Primary Care Provider [phone] Encounter Details Date Type Department Care Team (Late st Contact Info) Description 11/30/2022 Orders Only [facility] [address] [place] [address] [phone] Marianne Smith MD [address] [place] [address] [phone] Vertigo (Primary Dx) Social History Tobacco Use Types Packs/Day Years Used Date Smoking Tobacco: Former Cigarettes Passive Smoke Exposure: Past Smokeless Tobacco: Never Alcohol Use Standard Drinks/Week Comments Never 0 (1 standard drink = 0.6 oz pur e alcohol) Depression Answer Date Recorded Patient Health Questionnaire-2 Score 0 07/29/2022 Comments Unknown Sex and Gender Information Value Date Recorded Sex Assigned at Female 06/06/2022 10:17 AM EDT Legal Sex Female 10:17 AM EDT Gender Identity Female 06/06/2022 10:17 AM EDT Sexual Orientation Choose not to disclose 2021 10:17 AM EDT documented as of this encounter Plan of Treatment Upcoming Encounters Date Type Department Care Team (Late st Contact Info) Description 03/11/2025 11:30 AM EDT Office Visit [facility] [address] [place] [address] [phone] Marianne Smith MD [address] [place] [address] [phone] documented as of this encounter Visit Diagnoses Diagnosis Vertigo- Primary Dizziness and giddiness documented in this encounter Care Teams Material Movers Relationship Specialty Start Date End Date Marianne Smith MD [address] [place] [address] PCP - General Family Medicine 03/30/21 documented as of this encounter
[2025-01-08 13:56] LABS: Alkaline Phosphatase 110 U/L (39-117)
--- NOTE | 2025-01-08 14:11 | ED_ITS ---
HPI - General Adult General Chief complaint: Headache Stated complaint: Head Pain X 4 Days Time Seen by Provider: 01/08/25 14:11 Source: patient and dye feeder (all interactions with this patient were facilitated with an [facility] material damage appraiser) Mode of arrival: ambulatory Limitations: language barrier (all interactions with this patient were facilitated with an [facility] material damage appraiser) History of Present Illness ED Provider: Gina Simms PA-C HPI narrative: Patient is a 64 year old assigned female at with a history of chronic pain syndrome and arthritis presenting to the emergency department today with a headache. Patient states that the lower right side of her head hurts and she believes it is from the arthritis in her right neck. Patient denies any dizziness, lightheadedness, abdominal pain, nausea, vomiting, fever, chills, blurry vision, double vision, loss of vision, chest pain, difficulty breathing, shortness of breath, back pain, night sweats, pain with urination, increased urinary frequency, increased urinary urgency, blood in her urine or stool, syncope or a near syncopal episode, recent trauma or falls, bowel incontinence, bladder incontinence, or any other complaints at this time. Relieving factors: none Exacerbating factors: none Associated symptoms: headaches Treatments prior to arrival: none Related Data Home Medications ?Medication ?Instructions ?Recorded ?Confirmed metformin 500 mg tablet 1 tab PO BID 07/12/21 05/17/22 omeprazole 20 mg capsule,delayed 1 cap PO DAILY 07/12/21 05/17/22 release diclofenac sodium 1 % topical gel 2 g topical QID 05/17/22 05/17/22 famotidine 20 mg tablet 1 tab PO BID 05/17/22 05/17/22 hydrochlorothiazide 12.5 mg tablet 1 tab PO QAM blood pressure 05/17/22 05/17/22 lisinopril 40 mg tablet 1 tab PO DAILY 05/17/22 05/17/22 metoprolol succinate 25 mg 1 tab PO DAILY 05/17/22 05/17/22 tablet,extended release 24 hr Previous Rx's ?Medication ?Instructions ?Recorded triamcinolone acetonide 0.5 % 1 appl topical BID #15 grams 03/16/21 topical cream piblulhrne-uhtwepcvgglsj-cpqrnoys 1 cap PO Q6H PRN pain 5 days #20 05/20/21 50 mg-300 mg-40 mg capsule caps (Fioricet) acetaminophen 500 mg tablet 1,000 mg (2 x 500 mg) PO QID PRN 08/10/21 (Tylenol Extra Strength) fever or pain #14 tabs baclofen 5 mg tablet 5 mg PO BID PRN muscle spasm #60 01/04/22 tabs bisacodyl 5 mg tablet,delayed 10 mg (2 x 5 mg) PO ONCE 1 day #2 01/11/22 release (Dulcolax (bisacodyl)) tabs polyethylene glycol 3350 17 238 g PO ONCE #238 grams 01/11/22 gram/dose oral powder (Miralax) celecoxib 200 mg capsule 200 mg PO BID 30 days #60 caps 05/18/22 celecoxib 200 mg capsule (Celebrex) 200 mg PO BID 30 days #60 caps 05/18/22 ondansetron 4 mg disintegrating 4 mg PO Q8H PRN nausea and 05/29/22 tablet vomiting #7 tabs bisacodyl 5 mg tablet,delayed 20 mg (4 x 5 mg) PO ONCE 1 day #4 05/04/23 release (Dulcolax (bisacodyl)) tabs polyethylene glycol 3350 17 238 g PO ONCE 1 day #238 grams 05/04/23 gram/dose oral powder (Miralax) prednisone 20 mg tablet 20 mg PO DAILY 7 days #7 tabs 01/08/25 Allergies Allergy/AdvReac Type Severity Reaction Status Date / Time No Known Allergies Allergy Verified 01/08/25 12:50 Review of Systems 2 Constitutional: Constitutional: Reports no additional constitutional complaints, Denies chills, Denies fever(s), Reports headache(s) and Denies night sweats Eyes: Eyes: Reports no additional eye complaints, Denies blurry vision, Denies change in vision, Denies diplopia, Denies eye discharge, Denies loss of vision and Denies eye pain ENT: Denies dizziness and Reports headache(s) Cardiovascular: Cardiovascular: Reports no additional cardiovascular complaints, Denies chest pain, Denies lightheadedness, Denies Loss of Consciousness and Denies dyspnea Respiratory: Respiratory: Reports no additional respiratory complaints and Denies dyspnea Gastrointestinal: Gastrointestinal: Reports no additional gastrointestinal complaints, Denies abdominal pain, Denies melena, Denies hematochezia, Denies change in bowel habits and Denies change in stool character Genitourinary: Genitourinary: Denies hematuria, Denies urinary frequency, Denies dysuria, Denies urinary incontinence, Denies urinary hesitancy and Denies urinary urgency Musculoskeletal: Musculoskeletal: Reports no additional musculoskeletal complaints, Denies numbness and Denies tingling Neurologic: Denies dizziness, Reports headache(s), Denies loss of vision, Denies numbness and Denies tingling Psychiatric: Psychiatric: Reports no additional psychiatric complaints Endocrine: Endocrine: Reports no additional endocrine complaints Hematologic/Lymphatic: Hematologic/Lymphatic: Reports no additional hematologic/lymphatic complaints Allergic/Immunologic: Allergic/Immunologic: Reports no additional allergic/immunologic complaints [facility] Past Medical History Attestation statement: The following information was validated with the patient. Source: old records reviewed and nursing notes reviewed Medical History HTN (hypertension) Depression Back pain DDD (degenerative disc disease), cervical Herpes labialis Hyperlipidemia On beta radha at home Diabetes GERD (gastroesophageal reflux disease) Generalized osteoarthritis Spondylosis of lumbar spine Severe arterial insufficiency of right lower extremity Arterial insufficiency of lower extremity Weakness of both lower extremities Weakness of left lower extremity Chronic pain syndrome Osteoarthritis of left knee Osteoarthritis of knees, bilateral Surgical History Hx of section Hx laparoscopic cholecystectomy Social History Social History Alcohol intake: never Patient Tobacco Use Status: Former Tobacco user Advance Directives: No Advance Directives Information Provided: Yes Physical Exam ED Vital Signs: Vital Signs - 24 hr 01/08/25 12:48 01/08/25 14:48 Temperature 98.1 F 98 F Pulse Rate 68 60 Respiratory Rate 16 16 Blood Pressure 146/62 H 129/65 Pulse Oximetry 94 98 Oxygen Delivery Method Room Air Room Air BMI result Body Mass Index 29.6 Const General: cooperative, no acute distress, alert and awake Nutritional Appearance: well nourished Orientation/consciousness: patient oriented x3 HENMT Head: Yes normal to inspection and Yes atraumatic Ears: hearing grossly normal bilaterally and external ears normal General nose exam: Normal external nose present, no nasal discharge noted and no epistaxis Face and sinus: Yes normal facial exam, No abrasion and No laceration Mouth: Normal oral and palatal mucosa present, no drooling and no muffled voice Eyes General: appearance normal, both eyes and all related structures Periorbital: periorbital findings normal Eyelids: Yes eyelids normal Conjunctivae: conjunctivae normal Pupils: Equal, round and reactive pupils present EOM: EOMs intact bilaterally Neck Neck: Yes normal visual inspection, Yes full ROM and Yes no lymphadenopathy Resp Effort & Inspection: normal respiratory effort and able to speak in complete sentences Neuro General: patient oriented x3, moves all extremities and CN's II-XI intact bilaterally Cranial nerves: Yes Equal, round and reactive pupils present Cognition (Neuro): normal cognition Extrem General: Yes normal to inspection, Yes full ROM and Yes capillary refill normal Psych Appearance: grossly normal Mental Status: mental status grossly normal Affect: normal affect Attitude: cooperative Thought process: Normal thought process present Thought content: Normal thought content present Insight: Good insight present (Psych) Medications Administered Discontinued Medications Generic Name Dose Route Start Last Admin Trade Name Freq PRN Reason Stop Dose Admin Ketorolac Tromethamine 15 mg 01/08/25 14:24 01/08/25 14:47 Ketorolac Tromethamine 15 Mg/Ml Vial IM 01/08/25 14:25 15 mg ONCE ONE Administration Prednisone 20 mg 01/08/25 14:24 01/08/25 14:53 Prednisone 20 Mg Tablet PO 01/08/25 14:25 Not Given ONCE ONE Medical Decision Making Medical Decision Making MDM Narrative: Patient is a 64 year old assigned female at with a history of chronic pain syndrome and arthritis presenting to the emergency department today with a headache. Patient's physical exam was unremarkable. Patient's blood work showed a mild elevation of the WBC count of 11.5 - likely stress reaction. Patient's clinical presentation is most consistent with a headache secondary to either migraine or known neck OA. I explained my physical exam findings as well as all test results to the patient. I answered all questions asked by the patient. I stressed the importance of the patient taking her medication as directed (either prescribed or as the over the counter packaging recommends). I stressed the importance of the patient following up with her primary care provider. I stressed the importance of the patient returning to the emergency department immediately if her symptoms were to worsen or if she were to develop any dizziness, shortness of breath, difficulty breathing, chest pain, blurry vision, loss of vision, nausea, vomiting, abdominal pain, fever, chills, back pain, or any other complaints. Patient verbalized agreement and understanding with this treatment plan and discharge. Differential Diagnosis Differential Diagnoses: The differential diagnosis associated with the presentation includes Headache Migraine Admission/Observation Consideration of admission/observation: Escalation of care including admission/observation considered Patient would have been admitted to the hospital had her work up had any findings where hospital admission was appropriate and her clinical presentation warranted hospital admission. Lab Data [facility] Lab Attestation statement: I reviewed the patient's lab results. My interpretation of these results are in the [facility] Rationale portion of this note. 01/08/25 13:06 01/08/25 13:06 Labs: Lab Results 01/08/25 Range/Units 13:06 WBC 11.5 H (4.8-10.8) X10*3/uL RBC 4.76 (4.20-5.50) X10*6/uL Hgb 15.2 (12.0-16.0) g/dl Hct 44.7 (37.0-47.0) % MCV 93.9 (80.0-98.0) fL MCH 31.9 (27.0-33.0) pg MCHC 34.0 (31.0-35.0) g/dl RDW 12.6 (11.0-16.0) % Plt Count 288 (160-400) X10*3/uL MPV 10.4 (9.4-12.3) fL Immature Gran % (Auto) 0.5 H (0.0-0.4) % Neut % (Auto) 51.9 (45-73) % Lymph % (Auto) 38.9 (20-40) % [place] % (Auto) 6.6 (2-11) % Eos % (Auto) 1.2 (0-4) % Baso % (Auto) 0.9 (0-2) % Lymph # (Auto) 4.5 (1.2-4.9) X10*3/uL [place] # (Auto) 0.8 (0.1-1.2) X10*3/uL Eos # (Auto) 0.1 (0.0-0.4) X10*3/uL Baso # (Auto) 0.1 (0.0-0.2) X10*3/uL Abs Immat Gran (auto) 0.06 H (0.00-0.03) X10*3/uL Absolute Neuts (auto) 6.0 (2.0-8.3) x10*3/uL Absolute Nucleated RBC 0.000 (0.0-0.012) X10*3/uL Nucleated RBC % (auto) 0.0 (0.0-0.2) /100WBC Sodium 142 (135-145) mmol/L Potassium 4.2 (3.3-5.1) mmol/L Chloride 107 (96-108) mmol/L Carbon Dioxide 27 (22-29) mmol/L Anion Gap 12 (12-20) BUN 18 H (9-16) mg/dL Creatinine 0.62 (0.5-1.4) mg/dL Estim Creat Clear Calc 87.1 Estimated GFR > 60 Random Glucose 98 (60-115) mg/dL Calcium 10.0 (8.4-10.2) mg/dL Total Bilirubin 0.7 (0.0-1.0) mg/dL AST 17 (5-31) U/L ALT 15 (0-31) U/L Alkaline Phosphatase 110 (39-117) U/L Total Protein 7.1 (6.5-8.0) g/dL Albumin 4.5 (3.5-5.0) g/dL Discharge Plan Discharge Clinical Impression: Arthritis, Headache Patient Disposition: Home, Self-Care Instructions: Osteoarthritis (DC), Acute Headache (DC) Additional Instructions: Take your medication as prescribed. Follow up with your primary care provider. Return to the emergency department immediately if your symptoms worsen or if you develop any dizziness, shortness of breath, difficulty breathing, chest pain, blurry vision, loss of vision, nausea, vomiting, abdominal pain, fever, chills, back pain, or any other complaints. Harman?seguimiento?con quiros m?dico de atenci?n primaria. Acuda inmediatamente al servicio de urgencias si parish s?ntomas empeoran o si presenta falta de aliento, dificultad para respirar, dolor tor?cico, mareos, aturdimiento, dolor de espalda, dolor abdominal, fiebre, escalofr?os o cualquier otro s?ntoma. Please see the information below about our Patient Portal. If you are not yet enrolled in the [employer] [facility] Patient Portal, you will receive an enrollment email invitation following your visit to any [facility] care setting. You may also self-enroll in the Patient Portal by visiting our website: [email or web address] The following information is required to access the Patient Portal: - Your [facility] Medical Record Number - Your personal home email address (must match what is in your electronic medical record, Registration staff can assist with this) - Name - Date of Capabilities of the Patient Portal: - Message some providers - View upcoming appointments - Access your health summary, medical history, and visit history - View current conditions and allergies - View procedure and lab results - View your medications, including guidelines, side effects, and precautions - Complete pre-appointment questionnaires requested by your provider - Ready summary reports of your office visits and procedures To access the Patient Portal Mobile Alisia, follow these directions: - Search [email or web address] in the Alisia Store or [email or web address] Store - Download the Alisia - Search for [employer] - Enter your login/password Portal del paciente Si usted no esta inscrito en el portal de pacientes de [facility] [employer] [facility], recibira yung invitacion de inscripcion despues de quiros visita al [facility] o al [facility] via correo electronico. Tambien puede inscribirse voluntariamente en el portal de pacientes visitando nuestra pagina web: [email or web address] La siguiente informacion sera requerida para acceder al portal: - Quiros jacob de historia medica de [facility] - Quiros direccion de correo electronico personal - Nombre - Fecha de nacimiento Capacidades: Las siguientes capacidades estan disponibles en el portal de pacientes: - Enviar mensajes a algunos doctores - Verificar proximas citas - Acceso a quiros historial de duyen, registro medico e historial de visitas - Tod las condiciones actuales y alergias tod procedimientos y resultados del laboratorio - Tod parish medicamentos, incluyendo las pautas - Efectos secundarios y precauciones - Completar o llenar formularios / cuestionarios de - Citas solicitadas por quiros doctor - Leer los resumenes de reportes medicos de parish visitas y procedimientos Yuriy acceder a la aplicacion movil: - [email or web address] en la Alisia Store o [email or web address] Store - Descargue la aplicacion - [facility] - Ingrese quiros nombre de usuario / Contrasena Prescriptions: New prednisone 20 mg tablet 20 mg PO DAILY 7 Days Qty: 7 0RF No Action celecoxib [Celebrex] 200 mg capsule 200 mg PO BID 30 Days Qty: 60 12RF celecoxib 200 mg capsule 200 mg PO BID 30 Days Qty: 60 8RF bisacodyl [Dulcolax (bisacodyl)] 5 mg tablet,delayed release (DR/EC) 20 mg PO ONCE 1 Days Qty: 4 0RF Rx Instructions: take at noon the day before colonoscopy polyethylene glycol 3350 [Miralax] 17 gram/dose powder 238 g PO ONCE 1 Days Qty: 238 0RF Rx Instructions: Take as directed by mouth the day before your procedure. metformin 500 mg tablet 1 tab PO BID omeprazole 20 mg capsule,delayed release(DR/EC) 1 cap PO DAILY famotidine 20 mg tablet 1 tab PO BID metoprolol succinate 25 mg tablet extended release 24 hr 1 tab PO DAILY lisinopril 40 mg tablet 1 tab PO DAILY hydrochlorothiazide 12.5 mg tablet 1 tab PO QAM diclofenac sodium 1 % gel 2 g topical QID ondansetron 4 mg tablet,disintegrating 4 mg PO Q8H PRN (Reason: nausea and vomiting) Qty: 7 0RF btasegkcug-egtnxuzqzpomk-brrr [Fioricet] 50-300-40 mg capsule 1 cap PO Q6H PRN (Reason: pain) 5 Days Qty: 20 0RF acetaminophen [Tylenol Extra Strength] 500 mg tablet 1,000 mg PO QID PRN (Reason: fever or pain) Qty: 14 0RF triamcinolone acetonide 0.5 % cream 1 appl topical BID Qty: 15 0RF bisacodyl [Dulcolax (bisacodyl)] 5 mg tablet,delayed release (DR/EC) 10 mg PO ONCE 1 Days Qty: 2 0RF Rx Instructions: take 2 tabs at noon the day before your colonoscopy polyethylene glycol 3350 [Miralax] 17 gram/dose powder 238 g PO ONCE Qty: 238 0RF Rx Instructions: As directed by gastroenterology department at [facility] baclofen 5 mg tablet 5 mg PO BID PRN (Reason: muscle spasm) Qty: 60 0RF Referrals: Marianne Smith MD [Primary Care Provider] - Interventions: ED Discharge Assessment Last Done: 01/08/25 14:48 Discharge Date/Time: 01/08/25 14:53 Print Language: Uruguayan
[2025-01-08] MEDS: Ketorolac Tromethamine 15 MG/ML VIAL IM (14:47)
[2025-01-08 14:48] VITALS: BP 129/65; PULSE 60; RESP 16; TEMP 36.6; O2SAT 98
== END 2025-01-08 14:53 | disposition home or self-care (01) ==
PROVIDERS: Emergency Provider Emergency Medicine; PCP General Practice
DX: R51.9 Headache, unspecified (principal); M19.90 Unspecified osteoarthritis, unspecified site; I10 Essential (primary) hypertension; E11.9 Type 2 diabetes mellitus without complications; K21.9 Gastro-esophageal reflux disease without esophagitis; Z79.899 Other long term (current) drug therapy
CPT/HCPCS: 36415; 80053; 85025; 96372; 99284; J1885

== ENCOUNTER 2025-03-21 13:47 | Outpatient (REF) | payer OTHER, SELFPAY ==
--- OUTSIDE RECORDS SUMMARY | 2025-03-21 13:49 | XMS_ITS | Encounter Summary ---
Demographics Address [address] [place] [address] Mobile Phone Work Phone Home Phone Preferred Language es Marital Status Single Hinduism Affiliation Unknown Race Other Race Ethnic Group Unknown Author Organization [employer] [facility] Address [address] [place] [address] Care Team Providers Care Copy Center Operator Name Role Phone Marianne Smith MD Primary Care Provider [phone] Encounter Details Date Type Department Care Team (Late st Contact Info) Description 11/30/2022 Orders Only [facility] [address] [place], [place] [phone] Marianne Smith MD [address] [place], [place] [phone] Vertigo (Primary Dx) Social History Tobacco Use [...] as of this encounter Plan of Treatment Not on file documented as of this encounter Visit Diagnoses Diagnosis Vertigo- Primary Dizziness and giddiness documented in this encounter Care Teams Copy Center Operator Relationship Specialty Start Date End Date Marianne Smith MD [address] [place], [place] [phone] PCP - General Family Medicine 03/30/21 documented as of this encounter
--- OUTSIDE RECORDS SUMMARY | 2025-03-21 13:49 | XMS_ITS | Clinical Summary ---
Author Organization [address] [facility] Address [address] [place] [address] Phone Care Team Providers Care Law Office Assistant Name Role Phone Marianne Smith MD Primary Care Provider [phone] Allergies Active Allergy Reactions Criticality Noted Date Comments Tramadol 07/17/2024 Medications metFORMIN (FORTAMET) 1,000 mg 24 hr tablet Take 1 tablet (1,000 mg total) by mouth 2 (two) times a day. Do not crush, chew, or split. Active lisinopriL (PRINIVIL,ZESTR IL) 5 mg tablet Take 1 tablet (5 mg total) by mouth 1 (one) time each day. Active metoprolol succinate (TOPROL-XL) 25 mg 24 hr tablet Take 1 tablet (25 mg total) by mouth 1 (one) time each day. Do not crush or chew. Active omeprazole (PriLOSEC) [address] capsule Take 1 capsule (20 mg total) by mouth 1 (one) time each day. Do not crush or chew. Active Encounters Date Type Department Care Team Description 02/27/2025 12:00 PM EDT Ancillary Procedure [facility] [address] [place] [address] [place] [phone] Peripheral venous insufficiency; Varicose veins of leg with swelling, bilateral 01/14/2025 [address]phone [facility] [address] [place] [address] Emiliana Herrera MD from Last 3 Months Social History Tobacco Use Types Packs/Day Years Used Date Smoking Tobacco: Never Assessed Comments Unknown Sex and Gender Information Value Date Recorded Sex Assigned at Not on file Legal Sex Female 6:19 PM EST Gender Identity Not on file Sexual Orientation Not on file Last Filed Vital Signs Vital Sign Reading Time Taken Comments Blood Pressure 115/65 10/16/2024 1:21 PM EDT Pulse 65 10/16/2024 1:21 PM EDT Temperature - - Respiratory Rate - - Oxygen Saturation - - Inhaled Oxygen Concentration - - Weight 64.4 kg (142 lb) 07/17/2024 1:21 PM EST Height 157.5 cm (5' 2 ) 10/16/2024 1:21 PM EDT Body Mass Index 27.73 07/17/2024 1:21 PM EST Plan of Treatment Upcoming Encounters Date Type Department Care Team (Late st Contact Info) Description 04/16/2025 1:30 PM EDT Office Visit [facility] - [place] [address] [place] [address] Emiliana Herrera MD [address] [place] [address] Health Maintenance Due Date Last Done Comments Breast Cancer Screening 1961 Diabetes: Annual Foot Exam 1971 Diabetes: Annual Retina Eye Exam 1971 Cervical Cancer Screening: Pap Smear 1982 RSV Immunization Adult Patients (1 - Risk 60-74 years 1-dose series) 2021 COVID-19 Vaccine ( season) 2024 12/03/2020, 11/05/2020 Colorectal Cancer Screening: Colonoscopy 07/17/2024 Diabetes: Annual Urine Albumin-Creatinine Ratio (uACR) 07/17/2024 Social Influencers of Health Screening 07/17/2024 Depression Screening 08/07/2024 Diabetes: Blood Sugar Control Test (HGBA1C) 02/24/2025 08/27/2024, 04/17/2024 Influenza Vaccine (#1) 2025 , 06/24/2022, 06/11/2021, Additional history exists Diabetes: Annual GFR (Glomerular Filtration Rate) 01/08/2026 01/08/2025 Hypertension/CHF/CAD Annual BMP Blood Test 01/08/2026 01/08/2025 Cholesterol Screening (Lipid Panel) 11/06/2028 11/07/2023 DTaP,Tdap,and Td Vaccines (3 - Td or Tdap) 03/25/2032 03/25/2022, 10/27/2009 Hepatitis B Vaccines Completed 12/04/2013, 04/14/2011, 11/02/2009, Additional history exists Pneumococcal Vaccine: 50+ Years Completed 03/25/2022 Zoster Vaccines Completed 06/02/2023, 03/25/2022 HIV Screening Completed 11/07/2023 Hepatitis C Screening Completed 11/07/2023 HIB Vaccines Aged Out No longer eligi ble based on patient's age to complete this topic HPV Vaccines Aged Out No longer eligi ble based on patient's age to complete this topic Hepatitis A Vaccines Aged Out No long er eligible based on patient's age to complete this topic IPV Vaccines Aged Out No longer eligi ble based on patient's age to complete this topic MMR Vaccines Aged Out No longer eligi ble based on patient's age to complete this topic Meningococcal ACWY Vaccine Aged Out N o longer eligible based on patient's age to complete this topic Meningococcal B Vaccine Aged Out No l onger eligible based on patient's age to complete this topic RSV Immunization Patients Under 20 months Aged Out No longer eligible based on patient's age to complete this topic Varicella Vaccines Aged Out No longer eligible based on patient's age to complete this topic Procedures Procedure Name Priority Date/Time Associated Diagnosis Comments VAS US DUPLEX LOWER EXT VENOUS INSUFFICIENCY BILATERAL Routine 02/27/2025 11:42 AM EDT Peripheral venous insufficiency Varicose veins of leg with swelling, bilateral from Last 3 Months Results * Vascular US duplex lower extremity venous insufficiency bilateral (02/27/2025 11:42 AM EDT) Left GSK irina 0.23 cm CV VAS LAB Left GSDC irina 0.19 cm CV VAS LAB Left GSMT irina 0.22 cm CV VAS LAB Left GSPC irina 0.15 cm CV VAS LAB Left GSPT irina 0.32 cm CV VAS LAB Left SFJ Diameter 0.50 cm CV VAS LAB Right GSK irina 0.25 cm CV VAS LAB Right GSDC irina 0.23 cm CV VAS LAB Right GSMT irina 0.27 cm CV VAS LAB Right GSPC irina 0.19 cm CV VAS LAB Right GSPT irina 0.26 cm CV VAS LAB Right SFJ Diameter 0.40 cm CV VAS LAB Anatomical Region Laterality Modality Vascular, Abdomen Ultrasound Narrative 03/04/2025 4:29 PM EDT RIGHT. 1. No evidence of deep vein thrombosis. 2. The saphenofemoral junction, common femoral, femoral, and popliteal veins are competent. 3. No superficial venous thrombosis. 4. No visualization of small saphenous vein. 5. No venous reflux noted in the greater saphenous vein. LEFT. 1. No evidence of deep vein thrombosis. 2. The saphenofemoral junction, common femoral, femoral, and popliteal veins are competent. 3. No superficial venous thrombosis. 4. No visualization of small saphenous vein. 5. No venous reflux noted in the greater saphenous vein. 6. Left greater saphenous vein branch in the upper calf with 4.0 seconds of reflux. Right Lower Venous No evidence of deep vein thrombosis in the common femoral, deep femoral, proximal femoral, mid femoral, distal femoral, popliteal, greater saphenous, posterior tibial and peroneal veins of the right leg. The vessels showed compressibility. Interrogation showed phasic and spontaneous Doppler signals. Small saphenous vein is not visualized. Right Venous Insufficiency Duplex The exam was performed with the patient in reverse Trendelenburg. Left Lower Venous No evidence of deep vein thrombosis in the common femoral, deep femoral, proximal femoral, mid femoral, distal femoral, popliteal, greater saphenous, posterior tibial and peroneal veins of the left leg. The vessels showed compressibility. Interrogation showed phasic and spontaneous Doppler signals. Small saphenous vein was not visualized. Left Venous Insufficiency Duplex The exam was performed with the patient in reverse trendelenburg. 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 During the study longitudinal and transverse views were obtained. Pulsed wave doppler was performed. us Emiliana Herrera MD CV VASCULAR PROCEDURES Fi nal Result from Last 3 Months Insurance [facility] Member Subscriber Plan / Payer (Ef fective 2022-Present) Name:EDELMIRA RODRIGUEZ Relation to Subscriber:Self Name:Pedro LuisSarah Edelmira Payer ID:[id number] Group ID:[id number] Type:Not on file Address: [facility] [address] [address] Care Teams Law Office Assistant Relationship Specialty Start Date End Date Marianne Smith MD [address] [place] [phone] PCP - General 04/23/24
--- NOTE | 2025-03-21 13:57 | EMG_ITS ---
Chief complaint: Bilateral hand pain Reason for referral: Evaluate for Carpal Tunnel Syndrome Referred by: Saeed HOLLOWAY Precautions and/or limitations: None The limb temperature was monitored continuously and remained between 32-36 degrees C during the performance of the NCS. Nerve Conduction Studies Anti Sensory Summary Table ?Stim Site NR Onset (ms) Norm Onset (ms) Peak (ms) Norm Peak (ms) O-P Amp (?V) Norm O-P Amp Site1 Site2 Delta-0 (ms) Dist (cm) Esdras (m/s) Norm Esdras (m/s) Left Median Anti Sensory (2nd Digit) Wrist ? 2.9 3.6 <3.6 35.3 >10 Wrist 2nd Digit 2.9 14.0 48 Right Median Anti Sensory (2nd Digit) Wrist ? 2.6 3.5 <3.6 33.0 >10 Wrist 2nd Digit 2.6 14.0 54 Right Radial Anti Sensory (Thumb) Forearm ? 1.9 2.3 <3.1 10.1 Forearm Thumb 1.9 0.0 Site 2 ? 2.1 2.6 14.2 Left Ulnar Anti Sensory (5th Digit) Wrist ? 2.5 3.2 <3.7 26.8 >15.0 Wrist 5th Digit 2.5 14.0 56 Right Ulnar Anti Sensory (5th Digit) Wrist ? 2.4 3.2 <3.7 18.2 >15.0 Wrist 5th Digit 2.4 14.0 58 Motor Summary Table ?Stim Site NR Onset (ms) Norm Onset (ms) O-P Amp (mV) Norm O-P Amp iAmp (mV) Amp (1st) (%) Site1 Site2 Delta-0 (ms) Dist (cm) Esdras (m/s) Norm Esdras (m/s) Left Median Motor (Abd Poll Brev) Wrist ? 3.8 <3.9 12.2 >4.5 13.8 100.0 Elbow Wrist 3.5 18.0 51 >45 Elbow ? 7.3 11.6 13.1 95.1 Right Median Motor (Abd Poll Brev) Wrist ? 3.8 <3.9 10.0 >4.5 12.8 100.0 Elbow Wrist 2.9 17.0 59 >45 Elbow ? 6.7 9.7 12.6 97.0 Left Ulnar Motor (Abd Dig Minimi) Wrist ? 2.5 <3.0 6.1 >5 7.9 100.0 B Elbow Wrist 3.0 16.0 53 >45 B Elbow ? 5.5 5.7 7.6 93.4 A Elbow B Elbow 1.4 10.0 71 >45 A Elbow ? 6.9 5.8 7.5 95.1 Right Ulnar Motor (Abd Dig Minimi) Wrist ? 2.5 <3.0 7.6 >5 9.5 100.0 B Elbow Wrist 2.9 17.0 59 >45 B Elbow ? 5.4 7.1 9.0 93.4 A Elbow B Elbow 1.3 10.0 77 >45 A Elbow ? 6.7 7.5 9.5 98.7 EMG ?Side Muscle Nerve Root Ins Act Fibs Psw Amp Dur Poly Recrt Int Pat Comment Right 1stDorInt Ulnar C8-T1 Nml Nml Nml Nml Nml 0 Nml Complete Right FlexCarRad Median C6-7 Nml Nml Nml Nml Nml 0 Nml Complete Right FlexCarpiUln Ulnar C8,T1 Nml Nml Nml Nml Nml 0 Nml Complete Right Biceps Musculocut C5-6 Nml Nml Nml Nml Nml 0 Nml Complete Right Triceps Radial C6-7-8 Nml Nml Nml Nml Nml 0 Nml Complete Right Deltoid Axillary C5-6 Nml Nml Nml Nml Nml 0 Nml Complete Left 1stDorInt Ulnar C8-T1 Nml Nml Nml Nml Nml 0 Nml Complete Left FlexCarRad Median C6-7 Nml Nml Nml Nml Nml 0 Nml Complete Left FlexCarpiUln Ulnar C8,T1 Nml Nml Nml Nml Nml 0 Nml Complete Left Biceps Musculocut C5-6 Nml Nml Nml Nml Nml 0 Nml Complete Left Triceps Radial C6-7-8 Nml Nml Nml Nml Nml 0 Nml Complete Left Deltoid Axillary C5-6 Nml Nml Nml Nml Nml 0 Nml Complete FINDINGS: All motor and sensory nerves tested showed normal latencies, amplitudes and conduction velocities. Concentric needle EMG was performed in selected muscles of the bilateral upper extremities. Study did not reveal signs of electric abnormalities as shown in the table above. IMPRESSION: 1. This is a normal study. 2. There is no electrodiagnostic evidence for median neuropathy, ulnar neuropathy, brachial plexopathy, or cervical radiculopathy. Thank you for your kind referral. Ruthann Angela MD, YARI Board Certified, [place] Board [employer] Physical Medicine and Rehabilitation (ABPMR) Board Certified, [place] Board of Electrodiagnostic Medicine (ABEM) CODIN [phone] MTDD
== END 2025-03-21 13:48 | disposition home or self-care (01) ==
LOC: HO.NEURO 13:47
PROVIDERS: PCP General Practice
DX: R20.0 Anesthesia of skin (principal); R20.2 Paresthesia of skin
CPT/HCPCS: 95886; 95911

== ENCOUNTER → 2025-03-21 13:57 | Outpatient (BNV) | payer OTHER, SELFPAY | PROVIDERS: PCP General Practice; Visit Provider Physical Medicine & Rehabilitation | DX: M79.641 Pain in right hand (principal); M79.642 Pain in left hand | CPT/HCPCS: 95886; 95911 ==

== ENCOUNTER 2025-05-02 10:42 | Outpatient (AMB) | payer OTHER, SELFPAY ==
--- NOTE | 2025-05-02 10:52 | A.OFFVIS_ITS ---
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 Denies finger locking. Has tried braces and home exercises without relief. Denies any prior injuries or surgeries to the hands. ? 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 Denies finger locking. Has tried braces and home exercises without relief. Denies any prior injuries or surgeries to the hands. ? [facility] Medical History HTN (hypertension) Depression Back pain DDD (degenerative disc disease), cervical Herpes labialis Hyperlipidemia On beta radha at home Diabetes GERD (gastroesophageal reflux disease) Generalized osteoarthritis Spondylosis of lumbar spine Severe arterial insufficiency of right lower extremity Arterial insufficiency of lower extremity Weakness of both lower extremities Weakness of left lower extremity Chronic pain syndrome Osteoarthritis of left knee Osteoarthritis of knees, bilateral Surgical History Hx of section Hx laparoscopic cholecystectomy Social History Alcohol intake: never Patient Tobacco Use Status: Former Tobacco user Review of Systems Const All systems reviewed & are unremarkable except as noted in HPI and below Physical Exam Vital Signs: BMI result Body Mass Index 29.6 Extrem Other: Neuro: Normal sensation of the tips of all digits of bilateral hands in the office today No thenar or intrinsic wasting. Good APB muscle firing and good finger cross. Vascular: Capillary refill brisk. ROM: Patient can make a fist and extend all their digits, reports mild discomfort in both hands when doing so in all digits Skin: No lacerations or abrasions noted. General: No ecchymosis. No erythema or evidence of infection. Assessment & Plan Assessment & Plan (1) Stiffness of joints of both hands: Code(s): M25.641 - Stiffness of right hand, not elsewhere classified; M25.642 - Stiffness of left hand, not elsewhere classified Category: Medical (2) Numbness and tingling in both hands: Code(s): R20.0 - Anesthesia of skin; R20.2 - Paresthesia of skin Category: Medical Plan 1. Numbness and tingling of both hands 2. Stiffness of joints of both hands With negative EMG Patient is educated about this condition Patient is educated about the typical treatment course At this time, patient is referred to occupational therapy for range of motion and strengthening of bilateral hands, as I feel she is very stiff in the joints of all digits of bilateral hands Patient is educated that if in 6 months, she is still experiencing numbness and tingling in both hands, she should call us for repeat EMG order, as it is possible that any potential carpal or cubital tunnel syndromes might not be severe enough to be picked up by testing yet, but that there is no acute surgical intervention indicated with a negative EMG Patient understands this in his amenable to this plan Follow-up as needed Orders: Orders OT Evaluation and Treatment 05/02/25 M25.641 - Stiffness of right hand, not elsewhere classified, M25.642 - Stiffness of left hand, not elsewhere classified Coding Level of Care Code New Pt Level 3 (58419) Diagnoses Stiffness of joints of both hands M25.641; M25.642 Numbness and tingling in both hands R20.0; R20.2
[2025-05-02 10:53] VITALS: BMI 29.6
--- OUTSIDE RECORDS SUMMARY | 2025-05-02 12:15 | XMS_ITS | Encounter Summary ---
Demographics Address [address] [place] [address] Mobile Phone Work Phone Home Phone Preferred Language es Marital Status Single Bahai Affiliation Unknown Race Other Race Ethnic Group Unknown Author Organization [employer] Address [address] [place] [address] Care Team Providers Care Case Filler Name Role Phone Marianne Smith MD Primary Care Provider [phone] Reason for Visit * Reason Comments Med Refill Encounter Details Date Type Department Care Team ([facility] st Contact Info) Description 09/12/2023 Refill [facility] [address] [place], [place] [phone] Mindi Alarcon DO [address] [place], [place] [phone] Social History Tobacco Use Types Packs/Day Years Used Date Smoking Tobacco: Some Days Cigarettes Passive Smoke Exposure: Past Smokeless Tobacco: Never Alcohol Use Standard Drinks/Week Comments Never 0 (1 standard drink = 0.6 oz pur e alcohol) Housing Stability Answer Date Recorded What is your housing situation today? I have waialonso ivey 05/14/[address] you li ve. Do you have problems with any of the following? Water leaks 05/14/2023 Food Insecurity Answer Date Recorded Within the past 12 months, y ou worried that your food would run out before you got money to buy more: Never True 05/22/2023 Within the past 12 months,th e food you bought just didn't last and you didn't have enough money to get more: Never True Transportation Answer Date Recorded In the past 12 months, has l ack of transportation kept you from medical appts, meetings, work or from getting things needed for daily living? Yes, it has kept me from medical appointments or getting medications. 05/14/2023 Utilities Answer Date Recorded In the past 12 months, has t he electric, gas, oil or water company threatened to shut off services in your home? No 05/22/2023 Depression Answer Date Recorded Patient Health Questionnaire-2 [...] Care Team (Late st Contact Info) Description 07/07/2025 2:30 PM EST Office Visit [facility] [address] [place] [address] Marianne Smith MD [address] [place] [phone] documented as of this encounter Visit Diagnoses Not on filedocumented in this encounter Care Teams Case Filler Relationship Specialty Start Date End Date Marianne Smith MD [address] [place] [phone] PCP - General Family Medicine 03/30/21 documented as of this encounter
--- OUTSIDE RECORDS SUMMARY | 2025-05-02 12:15 | XMS_ITS | Clinical Summary ---
Author Organization [employer] Address [address] [facility] [address] [place] [address] Care Team Providers Care Integration Engineer Name Role Phone Marianne Smith MD Primary Care Provider [phone] Allergies Active Allergy Reactions Criticality Noted Date Comments Tramadol 05/24/2021 Medications TRUEplus Lancets 33G miscIndications:T ype 2 diabetes mellitus with hyperglycemia (CMS/HCC) TEST BLOOD SUGAR 3 TIMES A DAY 100 each 11 11/15/19 23 Active Continuous Blood Gluc Sensor (Dexcom G7 Sensor) miscIndications:T ype 2 diabetes mellitus with other specified complication, without long-term current use of insulin (CMS/HCC) 1 each 3 times daily. 1 each 02/07/20 23 Active gabapentin (Neurontin) 300 MG capsule Take 300 mg by mouth in the morning. 01/25/20 23 Active Blood Pressure Monitoring (Blood Pressure Cuff) miscIndications:P rimary hypertension 1 each in the morning. 1 each 05/22/20 23 Active hydrOXYzine pamoate (Vistaril) 25 MG capsuleIndication s:Anxiety TAKE 1 CAPSULE BY MOUTH EVERY 8 HOURS NEEDED FOR ANXIETY 90 capsule 3 09/01/19 24 Active lidocaine (Lidoderm) 5 % patchIndications: Degeneration of cervical intervertebral disc,Diabetic polyneuropathy associated with type 2 diabetes mellitus (CMS/HCC) Apply 1 patch topically Once per day. Remove & discard patch within 12 hours or as directed by MD. 30 patch 6 04/17/20 24 Active pantoprazole (Protonix) 20 MG EC tabletIndications :Gastroesophageal reflux disease without esophagitis Take 1 tablet (20 mg) by mouth before breakfast. For heartburn 90 tablet 3 04/17/20 24 Active metoprolol succinate XL (Toprol-XL) 25 MG 24 hr tablet TAKE 1 TABLET BY MOUTH EVERY DAY 90 tablet 3 06/10/20 24 Active FREESTYLE LITE test stripIndications: Type 2 diabetes mellitus with other specified complication, without long-term current use of insulin ([facility]) USE TO TEST BLOOD SUGAR THREE TIMES DAILY 100 strip 11 07/01/20 24 Active lisinopril 40 MG tabletIndications :Essential hypertension TAKE 1 TABLET BY MOUTH EVERY DAY 90 tablet 3 07/08/20 24 Active cyclobenzaprine (Flexeril) 5 MG tablet TAKE 1 TABLET BY MOUTH TWICE DAILY NEEDED FOR MUSCLE SPASMS 40 tablet 1 09/20/19 25 Active Blood Glucose Monitoring Suppl (FreeStyle Lite) w/Device kitIndications:Ty pe 2 diabetes mellitus with other specified complication, 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 Use as directed 1 kit 11/01/19 25 Active metFORMIN (Glucophage) 500 MG tablet TAKE 2 TABLETS BY MOUTH TWICE DAILY IN THE MORNING AND EVENING WITH MEALS 360 tablet 3 11/19/19 25 Active traZODone (Desyrel) 50 MG tabletIndications :Primary insomnia TAKE 1 TO 2 TABLETS BY MOUTH EVERY DAY AT BEDTIME NEEDED FOR SLEEP 90 tablet 3 11/30/19 25 Active Diclofenac Sodium 1 % gelIndications:Ar thritis APPLY 2 GRAMS TO AFFECTED AREA(S) FOUR TIMES DAILY 100 g 6 12/26/19 25 Active hydroCHLOROthiazi de 12.5 MG tablet TAKE 1 TABLET BY MOUTH EVERY DAY IN THE MORNING IF BP>140/90, REPEAT ONCE IN 6 HOURS IF BLOOD PRESSURE > 140 / 90 180 tablet 3 01/01/20 25 Active naproxen sodium (Aleve) 220 MG tablet Take 1 tablet (220 mg) by mouth if needed in the morning and at bedtime for mild pain. 60 tablet 3 02/22/20 25 026 Active Magnesium 400 MG capsuleIndication s:Tension headache Take 400 mg by mouth at bedtime. To prevent headaches 90 capsule 3 03/11/20 25 Active capsaicin (Capzasin-HP) 0.1 % creamIndications: Primary osteoarthritis of left knee APPLY A THIN LAYER FOUR TIMES DAILY FOR PAIN 42.5 g 3 04/28/20 25 Active capsaicin (Capzasin-HP) 0.1 % creamIndications: Primary osteoarthritis of left knee Apply thin layer by topical route up to 4 times daily for pain. 45 g 3 12/07/19 25 025 Discontinued Active Problems Problem Noted Date Diagnosed Date Varicose veins of leg with swelling, bilateral 0 04/25/2025 Type II diabetes mellitus wi th peripheral circulatory disorder 08/27/2024 Diabetic polyneuropathy asso ciated with type 2 diabetes mellitus 04/17/2024 Colon cancer screening 11/07/2023 Assessment & Plan (11/07/2023 11:31 AM EDT): Cologuard ordered Degeneration of cervical intervertebral disc Gastroesophageal reflux disease without esophagi tis 07/29/2022 Assessment & Plan (04/17/2024 2:28 PM EDT): Switch from Famotidine 20mg to Nexium 20mg daily Hypertensive disorder 07/29/2022 Assessment & Plan (09/02/2024 5:24 PM EST): At goal <140/90 at home and close in clinic cont Lisinopril 40mg daily, HCTZ 12.5mg and one additional dose if needed in the afternoon limit salt to <2gm daily focus on weight loss Walk as able Assessment & Plan (04/17/2024 2:26 PM EDT): At goal <140/90 at home and close in clinic cont Lisinopril 40mg daily, HCTZ 12.5mg and one additional dose if needed in the afternoon limit salt to <2gm daily focus on weight loss Walk as able Assessment & Plan (11/07/2023 2:38 PM EDT): At goal <140/90 at home and close in clinic cont Lisinopril 40mg daily, HCTZ 12.5mg and one additional dose if needed in the afternoon limit salt to <2gm daily focus on weight loss Walk as able Assessment & Plan (06/26/2023 1:22 PM EST): At goal <140/90 at home, elevated in clinic at 150 systolic cont Lisinopril 40mg daily, HCTZ 12.5mg and one additional dose if needed in the afternoon limit salt to <2gm daily focus on weight loss Walk as able Assessment & Plan (02/13/2023 12:18 PM EDT): At goal <140/90 today cont Lisinopril 40mg daily, HCTZ 12.5mg and one additional dose if needed in the afternoon limit salt to <2gm daily focus on weight loss Walk as able Assessment & Plan (07/29/2022 12:17 PM EST): At goal <140/90 today cont Lisinopril 40mg daily, HCTZ 12.5mg and one additional dose if needed in the afternoon limit salt focus on weight loss Spondylosis 07/29/2022 Osteoarthritis of knee 06/11/2021 Assessment & Plan (04/17/2024 2:30 PM EDT): Knee brace ordered Ambulate as much as possible RMV placard is indicated Continue Diclofenac gel Add Naproxen daily for severe pain Stepstool to be able to get into her bath She asks about a letter to be able to keep her laundry machine in her apartment, which is recommended so she does not have to go up and down stairs with her laundry with arthritis Assessment & Plan (02/13/2023 12:22 PM EDT): Knee brace ordered Ambulate as much as possible RMV placard is indicated Type 2 diabetes mellitus 06/11/2021 Assessment & Plan (09/02/2024 5:23 PM EST): A1C 7.0 cont Metformin 500mg AM and 1000mg PM Failed monofilament 04/2024, referred to podiatry ABIGAIL 06/2023 without diabetic chages continue dietary changes Labs last done 11/2023, next due 11/2024 Assessment & Plan (04/17/2024 2:25 PM EDT): A1C 7.0 cont Metformin 500mg AM and 1000mg PM Failed monofilament 04/2024, referred to podiatry ABIGAIL 06/2023 without diabetic chages continue dietary changes Labs last done 11/2023, next due 11/2024 Assessment & Plan (11/07/2023 2:38 PM EDT): A1C 6.8 cont Metformin 500mg AM and 1000mg PM Failed monofilament 02/2023, referred to podiatry ABIGAIL 06/2023 without diabetic chages continue dietary changes Labs 10/2023 Assessment & Plan (06/26/2023 1:23 PM EST): A1C 6.9 cont Metformin 500mg AM and 1000mg PM Failed monofilament 02/2023, referred to podiatry ABIGAIL 06/2023 without diabetic chages continue dietary changes f/u labs 10/2023 Imms given 04/2022 PCV20, Tdap, Shingrix Assessment & Plan (02/13/2023 12:23 PM EDT): A1C 6.3 cont Metformin 500mg AM and 1000mg PM She would like a sensor, PA order sent early February 2023 She failed monofilament today, will refer [facility] continue dietary changes f/u labs in 05/2023 Imms given 04/2022 PCV20, Tdap, Shingrix Next appt in 3 months Assessment & Plan (07/29/2022 12:16 PM EST): A1C 6.3 cont Metformin cont morning walking continue dietary changes f/u labs in 3 months Imms given 04/2022 PCV20, Tdap, Shingrix Next appt in 3 months Backache 10/03/2014 Depressive disorder 10/03/2014 Herpes labialis 09/18/2013 Gastritis 03/21/2013 Hyperlipidemia 12/07/2012 Assessment & Plan (07/29/2022 12:17 PM EST): Continue annual monitoring of lipids Resolved Problems Problem Noted Date Diagnosed Date Resolved Date Abnormal metabolism 07/29/2022 04/17/20 24 Assessment & Plan (07/29/2022 12:18 PM EST): Check TSH Encounters Date Type Department Care Team Description 04/27/2025 Refill [facility] [address] [place] [address] Name, MD Braxton Primary osteoarthritis of left knee 04/18/2025 Telephone [facility] [address] [place] [phone] Marianne Smith MD Durable Medical Equipment ([facility] [employer]: DME: Compression Socks) 04/10/2025 Refill [facility] [address] [place] [phone] Marianne Smith MD Arthritis 03/11/2025 11:30 AM EDT Office Visit [address] [address] Marianne Smith MD Type 2 diabetes mellitus with other specified complication, without long-term current use of insulin ([facility]) (Primary Dx); Screening for colon cancer; Bilateral carpal tunnel syndrome; Tension headache; Degeneration of cervical intervertebral disc; Primary hypertension 03/11/2025 Travel 02/21/2025 Orders Only [address] [address] Marianne Smith MD 02/21/[address] [address] Marianne Smith MD REFILL from Last 3 Months Immunizations Immunization Administration Dates Next Due Hep B, adult 12/04/2013, 1,11/02/2009,2009 Influenza Injectable Quadriv alant Preservative Free IIV4 MDCK 06/02/2023 Influenza injectable quadriv alent IIV4 with preservative 09/07/2017 Influenza injectable quadriv alent preservative free 06/24/2022,06/11/2021 Influenza, IIV3, injectable 07/21/2014, 1 Influenza, Split (incl. cabrera fied surface antigen) 04/23/2013 Moderna Covid-19 Vaccine 12+ 12/03/2020,11/06/19 21 Pneumococcal Conjugate PCV 20 03/25/2022 Tdap 03/25/2022,10/27/2009 Zoster, Recombinant 06/02/2023,03/25/2022 Social History Tobacco Use Types Packs/Day Years Used Date Smoking Tobacco: Some Days Cigarettes Passive Smoke Exposure: Past Smokeless Tobacco: Never Tobacco Cessation:Ready to Q uit: Not Asked; Counseling Given: Not Answered Alcohol Use Standard Drinks/Week Comments Never 0 (1 standard drink = 0.6 oz pur e alcohol) Depression Answer Date Recorded Patient Health Questionnaire-9 Score 6 08/27/2024 Patient Health Questionnaire-9 Score 6 08/27/2024 Last PHQ-9: Questionnaire Data Not on file 0 08/27/2024 Housing Stability Answer Date Recorded What is your housing situation today? I have wai loni 03/11/[address] you li ve. Do you have problems with any of the following? None of the above 03/11/2025 Food Insecurity Answer Date Recorded Within the past 12 months, y ou worried that your food would run out before you got money to buy more: Never True 03/11/2025 Within the past 12 months,th e food you bought just didn't last and you didn't have enough money to get more: Never True 12/2024 Transportation Answer Date Recorded In the past 12 months, has l ack of transportation kept you from medical appts, meetings, work or from getting things needed for daily living? No 03/11/2025 Utilities Answer Date Recorded In the past 12 months, has t he electric, gas, oil or water company threatened to shut off services in your home? No 03/11/2025 Depression Answer Date Recorded Patient Health Questionnaire-2 Score 1 08/27/2024 Internet Access Answer Date Recorded Internet Access Q1 Yes 03/11/2025 Internet Access Q2 Not on file 03/11/2025 Comments Unknown Sex and Gender Information Value Date Recorded Sex Assigned at Female 06/06/2022 10:17 AM EDT Legal Sex Female 10:17 AM EDT Gender Identity Female 06/06/2022 10:17 AM EDT Sexual Orientation Choose not to disclose 2021 10:17 AM EDT Last Filed Vital Signs Vital Sign Reading Time Taken Comments Blood Pressure 130/82 03/11/2025 11:16 AM EDT Pulse 73 03/11/2025 11:16 AM EDT Temperature 36.6 C (97.8 F) 03/11/2025 11:16 AM EDT Respiratory Rate 16 03/11/2025 11:16 AM EDT Oxygen Saturation 98% 03/11/2025 11:16 AM EDT Inhaled Oxygen Concentration - - Weight 70.9 kg (156 lb 3.2 oz) 03/11/2025 11:16 AM EDT Height 157.5 cm (5' 2 ) 03/11/2025 11:16 AM EDT Body Mass Index 28.57 03/11/2025 11:16 AM EDT Plan of Treatment Upcoming Encounters Date Type Department Care Team (Late st Contact Info) Description 07/07/2025 2:30 PM EST Office Visit [facility] [address] [place] [address] Marianne Smith MD [address] [place] [address] Health Maintenance Due Date Last Done Comments CT Colonography 1960 Colonoscopy 1960 Colorectal Cancer Screening 1960 FIT DNA/Cologuard 1961 FIT 1961 FOBT 1960 Sigmoidoscopy 1961 Alcohol/Substance Use Screening 1973 Diabetes: Urine Protein Screening 11/06/2024 11/07/2023, 03/25/2022 Lipid Panel 11/06/2024 11/07/2023, 03/07, 03/30/2021 COVID-19 Vaccine ( season) 2025 12/03/2020, 11/05/2020 Influenza Vaccine (#1) 2025 , 06/24/2022, 06/11/2021, Additional history exists Diabetes: Foot Exam 04/17/2025 04/17/2024, 04/17/2024, 04/17/2024, Additional history exists Eye Exam 06/08/2025 06/08/2023, 09/2022, 06/08/2023, Additional history exists Diabetes: Hemoglobin A1C 06/11/2025 025, 08/27/2024, 04/17/2024, Additional history exists Mammogram 07/09/2025 07/09/2024, 06/07, 04/20/2021, Additional history exists Depression Screening 08/27/2025 08/27/2024, 08/27/19 25 Disability Screening 03/11/2026 03/11/2025 SDOH Screening 03/11/2026 03/11/2025 Tobacco Screening 03/11/2026 03/11/2025 Cervical Cancer Screening 07/07/2026 HPV/Cotest 07/07/2026 07/07/2021 Pap Smear 07/07/2026 07/07/2021 DTaP/Tdap/Td Vaccines (3 - Td or Tdap) 03/25/2032 03/25/2022, 10/27/2009 RSV Patients and Patients Aged 60 years or older (1 - 1-dose 75+ series) 2036 Hepatitis B Vaccines Completed 12/04/2013, 04/14/2011, 11/02/2009, [...] patient's age to complete this topic Meningococcal Vaccine Aged Out No kezia shabana eligible based on patient's age to complete this topic RSV under 20 months Aged Out No longe r eligible based on patient's age to complete this topic Rotavirus Vaccines Aged Out No longer eligible based on patient's age to complete this topic Procedures Procedure Name Priority Date/Time Associated Diagnosis Comments POCT GLYCATED HEMOGLOBIN, TOTAL Routine 03/11/2025 11:23 AM EDT Type 2 diabetes mellitus with other specified complication, without long-term current use of insulin (CMS/[facility]) POCT GLUCOSE Routine 03/11/2025 11:17 AM EDT Type 2 diabetes mellitus with other specified complication, without long-term current use of insulin (CMS/[facility]) BI MAMMOGRAM SCREENING TOMOSYNTHESIS BILATERAL Routine 07/09/2024 10:30 AM EST HEPATITIS C AB W/REFL TO HCV RNA, QN, PCR Routine 11/07/2023 11:48 AM EDT Type 2 diabetes mellitus with other specified complication, without long-term current use of insulin (CMS/HCC) HIV 1/2 ANTIGEN/ANTIBODY, FOURTH GENERATION W/RFL Routine 11/07/2023 11:48 AM EDT Type 2 diabetes mellitus with other specified complication, without long-term current use of insulin (CMS/HCC) ALBUMIN, RANDOM URINE W/CREATININE Routine 11/07/2023 11:48 AM EDT Type 2 diabetes mellitus with other specified complication, without long-term current use of insulin (CMS/HCC) LIPID PANEL, STANDARD Routine 11/07/2023 11:48 AM EDT Type 2 diabetes mellitus with other specified complication, without long-term current use of insulin (CMS/HCC) HPV MRNA E6/E7 REFLEX TO HPV 16, 18/45 Routine 07/07/2021 7:53 AM EST THINPREP IMAGING SYSTEM PAP Routine 07/07/2021 7:53 AM EST from Last 3 Months or Most Recently Relevant to Health Maintenance Results * (ABNORMAL) POCT HGB A1C (03/11/2025 11:23 AM EDT) Pathologist [facility] Hemoglobin A1C 7.3(A) 4.0 - 5.7 % QC Media Lot # [id number] Lot# Expiration Date 72 Blood 03/11/2025 11:2 3 AM EDT Marianne Smith MD POINT OF CARE TEST ENTER/EDIT ORDERABLES Final Result * POCT Glucose (03/11/2025 11:17 AM EDT) Glucose Blood, POC 167 60 - 200 mg/dL QC Media Lot # [id number] Lot# Expiration Date Blood Capillary blood specimen / Unknown 03/11/2025 11:17 AM EDT Marianne Smith MD POINT OF CARE TEST ENTER/EDIT ORDERABLES Final Result * BI Mammogram Screening Tomosynthesis Bilateral (07/09/2024 10:30 AM EST) Anatomical Region Laterality Modality Breast Bilateral Mammography 07/09/2024 10:3 0 AM EST Narrative 07/15/2024 5:28 PM EST [facility] [address] [place] [address] Mammography Report Signed Patient: Summer Ruiz MR#: [id number] : 1960 Acct:[id number] Age/Sex: 64 / F ADM Date: 07/09/24 Loc: HO.MAMMO Attending Dr: Marianne Smith MD Ordering Physician: Marianne Smith Results: 1Negative Date of Service: 07/09/24 Follow Up: 1 Year From Orig inal Mammogram Procedure(s): MM tomosynthesis screening BI Accession Number(s): [id number] cc: Marianne Smith EXAMINATION: MM SCREENING DIGITAL BREAST TOMOSYNTHESIS, BILATERAL CLINICAL INFORMATION: Screening. Asymptomatic. COMPARISON: Mammography: Comparison is made with available priors TECHNIQUE: Digital breast mammography with tomosynthesis is performed in both the craniocaudal and mediolateral oblique views along with computer-aided detection (CAD). FINDINGS: There are scattered areas of fibroglandular density (ACR BI-RADS breast composition Category b). There are no significant masses, abnormal calcifications, or other abnormalities. MM/MM tomosynthesis screening BI IMPRESSION: No mammographic evidence of malignancy. ASSESSMENT: BI-RADS BI-RADS 1 - Negative RECOMMENDATION: Routine annual mammography screening. 1 year F/U This examination should not preclude the clinical evaluation of a suspicious palpable abnormality. This patient's information was entered into a reminder system with a target due date for their next mammogram. Electronically signed by: Radha Narvaez DO 07/15/2024 05:25 PM EST RP Dictated By: Radha Narvaez DO Signed By: <Electronically signed by Radha Narvaez DO in OV> 07/15/24 1725 DD/ 1030 TD/TT: 07/09/24 1048 Costume Seamstress: Procedure Note Donotuseinterpreter, Image - 07/15/2024 [facility] [address] [place] [address] Mammography Report Signed Patient: Kristen RuizmMR#: [id number] : 1960cct:[id number] Age/Sex: 64 / FADM Date: 07/09/24 Loc: HO.MAMMO Attending Dr: Marianne Smith MD Ordering Physician: Nayana Smithults: 1Negative Date of Service: 07/09/24Follow Up: 1 Year From Orig inal Mammogram Procedure(s): MM tomosynthesis screening BI Accession Number(s): [id number] cc: Marianne Smith EXAMINATION: MM SCREENING DIGITAL BREAST TOMOSYNTHESIS, BILATERAL CLINICAL INFORMATION: Screening. Asymptomatic. COMPARISON: Mammography: Comparison is made with available priors TECHNIQUE: Digital breast mammography with tomosynthesis is performed in both the craniocaudal and mediolateral oblique views along with computer-aided detection (CAD). FINDINGS: There are scattered areas of fibroglandular density (ACR BI-RADS breast composition Category b). There are no significant masses, abnormal calcifications, or other abnormalities. MM/MM tomosynthesis screening BI IMPRESSION: No mammographic evidence of malignancy. ASSESSMENT: BI-RADS BI-RADS 1 - Negative RECOMMENDATION: Routine annual mammography screening. 1 year F/U This examination should not preclude the clinical evaluation of a suspicious palpable abnormality. This patient's information was entered into a reminder system with a target due date for their next mammogram. Electronically signed by: Radha Narvaez DO 07/15/2024 05:25 PM EST RP Dictated By: Radha Narvaez DO Signed By: <Electronically signed by Radha Narvaez DO in OV> 07/15/24 1725 DD/ 1030 TD/TT: 07/09/24 1048 Costume Seamstress: Result [facility] Marianne Smith MD IMG BI PROCEDURES Final Result * Albumin, Random Urine W/Creatinine (11/07/2023 11:48 AM EDT) Creatinine, Urine 227.27 mg/dL [facility] Microalbumin Urine 29.0 mg/L [facility] Microalbum Creatinine Ratio Ur 12.7 <30 ug/mg cr [facility] Comment:Albumin/Creatinine R atio Reference Ranges: Normal: < 30 ug/mg creatinine Microalbuminuria: 30 - 300 ug/mg creatinineClinical Albuminuria: > 300 ug/mg creatinine Urine (Urine, Random) 11/07/2023 11:48 AM EDT 11/07/2023 7:21 PM EDT Marianne Smith MD LAB URINE ORDERABLES Final Res ult Performing Organization Address [facility] Co de Phone Number [facility] [address] [place] [phone] * Hepatitis C Antibody with Reflex to HCV, RNA, Quantitative, Real-Time PCR (11/07/2023 11:48 AM EDT) Hepatitis C Antibody Nonreactive Nonreactive [facility] Comment:Antibodies to HCV no t detected; does not exclude early acuteHCV infection. Blood Venous blood specimen / Unknown 11/07/2023 11:48 AM EDT 11/07/2023 6:56 PM EDT Result [facility] Marianne Smith MD LAB BLOOD ORDERABLES Final Res ult Performing Organization Address City/[facility]/ZIP Co de Phone Number [facility] [address] [place] [phone] * HIV-1/2 Antigen and Antibodies, Fourth Generation, with Reflexes (11/07/2023 11:48 AM EDT) HIV AB/AG Nonreactive Nonreactive [facility] Comment:HIV-1 p24 Ag and/or HIV-1/HIV-2 Ab not detected.A test result that is nonreactive does not exclude thepossibility of exposure to or infection with HIV-1 and/orHIV-2. Nonreactive results in this assay for individualswith prior exposure to HIV-1 and/or HIV-2 may be due toantigen and antibody levels that are below the limit ofdetection of this assay.The [employer] HIV Ag/Ab Combo assay result andsupplemental assay results should be interpreted inconjunction with the patient's clinical presentation,history and other laboratory results. If the results areinconsistent with clinical evidence, additional testing issuggested to confirm the result. Blood Venous blood specimen / Unknown 11/07/2023 11:48 AM EDT 11/07/2023 6:56 PM EDT us Marianne Smith MD LAB BLOOD ORDERABLES Final Res ult [facility] [address] [place] [address] [phone] * (ABNORMAL) Lipid Panel, Standard (11/07/2023 11:48 AM EDT) Triglycerides 197(H) <150 mg/dL [facility] Comment:Desirable Triglyceri de: less than 150 mg/dLBorderline High Triglyceride 150-199 mg/dLHigh Triglyceride: 200-499 mg/dLVery High Triglyceride: greater than or equal to 5OO mg/dL Cholesterol 158 <200 mg/dL [facility] Comment:Desirable Cholestero l: less than 200 mg/dLBorderline High Cholesterol: 200-239 mg/dLHigh Cholesterol: greater than 239 mg/dL LDL Cholesterol Calculated 80 <100 mg/dL [facility] Comment:Desirable LDL: less than 100 mg/dLNear Optimal/Above Optimal LDL: 110- 129 mg/dLBorderline High LDL: 130-159 mg/dLHigh LDL: 160-189 mg/dLVery High LDL: greater than or equal to 190 mg/dL HDL Cholesterol 39(L) >40 mg/dL [facility] Comment:Desirable HDL: great er than 40 mg/dL Note: This HDL assay may give artificially low results in patients with liver disease. Blood Venous blood specimen / Unknown 11/07/2023 11:48 AM EDT 11/07/2023 6:56 PM EDT Marianne Smith MD LAB BLOOD ORDERABLES Final Res ult [facility] [address] [place] [phone] * THINPREP TIS PAP (07/07/2021 7:53 AM EST) Clinical Information: None given [facility] COMMENT SEE COMMENT [facility] Comment: EXPLANATORY NOTE: The Pap is a screening test for cervical cancer. It is not a diagnostic test and is subject to false negative and false positive results. It is most reliable when a satisfactory sample, regularly obtained, is submitted with relevant clinical findings and history, and when the Pap result is evaluated along with historic and current clinical information. COMMENT: This Pap test has been evaluated with computer assisted technology. [facility] Cloth Worker : SEE COMMENT [facility] Comment: LILIANA FITZPATRICK(ASCP) CT screening location: [place] [address] Interpretation/R esult: Negative for intraepithelial lesion or malignancy. [facility] LMP: NONE [facility]EN [facility] Prev. BX: NONE GIVEN [facility] Prev. PAP: NONE GIVEN [facility] SOURCE: None given [facility] Statement Of Adequacy: SEE COMMENT [facility] Comment: Satisfactory for evaluation. Endocervical/transformation zone component present. 07/07/2021 7:53 AM EST Marianne Smith MD LAB PATHOLOGY ORDERABLES Final Result Performing Organization Address City/[facility]/ZIP Co de Phone Number [facility] [address] * HPV mRNA E6/E7 REFLEX TO HPV 16, 18/45 (07/07/2021 7:53 AM EST) HPV nRNA E6/E7 Not Detected Not Detected [facility] Comment: Methodology: Gas Charger-Mediated Amplification This assay detects E6/E7 viral messenger RNA (mRNA) from 14 high-risk HPV types (16,18,31,33,35,39,45,51,52,56,58,59,66,68). The analytical performance characteristics of this assay have been determined by [employer]. The modifications have not been cleared or approved by the FDA. This assay has been validated pursuant to the CLIA regulations and is used for clinical purposes. For additional information, please refer to http://education.[employer].cn/faq/YJW088l3 (This link if provided for information/ educational purposes only.) NO COLLECTION DATE RECEIVED. WE HAVE USED THE DATE THE SPECIMEN WAS RECEIVED BY THIS LABORATORY THE COLLECTION DATE. IF THIS IS INCORRECT, PLEASE CONTACT CLIENT SERVICES. PHONE NUMBER: 07/07/2021 7:53 AM EST us Marianne Smith MD LAB CYTOLOGY ORDERABLES Final Result [facility] [address] from Last 3 Months or Most Recently Relevant to Health Maintenance Insurance * Guarantor: Summer Ruiz Account Type Relation to Patient Date of Phone Billing Address Personal/Family Self 1960 [address] [facility] [address] [place] [address] [facility] CARE < 66 [place] [phone] Care Teams Integration Engineer Relationship Specialty Start Date End Date Marianne Smith MD [address] [place] [phone] PCP - General Family Medicine 03/30/21
--- OUTSIDE RECORDS SUMMARY | 2025-05-02 12:15 | XMS_ITS | Clinical Summary ---
Author Organization [facility] Address 175 [place] [address] Phone Care Team Providers Care Adult Health Clinical Nurse Specialist Name Role Phone Marianne Smith MD Primary Care Provider [phone] Allergies Active Allergy Reactions Criticality Noted Date [...] Encounters Date Type Department Care Team Description 04/16/2025 1:30 PM EDT Office Visit V[facility] [place] [address] [facility] [address] [place] [phone] Emiliana Herrera MD Varicose veins of leg with swelling, bilateral (Primary Dx) 02/27/2025 12:00 PM EDT Ancillary Procedure [facility] [address] [facility] [address] [place] [phone] Peripheral venous insufficiency; Varicose veins of leg with swelling, bilateral from Last 3 Months Social History Tobacco Use Types Packs/Day Years Used Date Smoking Tobacco: Never Assessed Comments Unknown Sex and Gender Information Value Date Recorded Sex Assigned at Not on file Legal Sex Female 6:19 PM EST Gender Identity Not on file Sexual Orientation Not on file Last Filed Vital Signs Vital Sign Reading Time Taken Comments Blood Pressure 140/70 04/16/2025 1:20 PM EDT Pulse 64 04/16/2025 1:20 PM EDT Temperature - - Respiratory Rate 16 04/16/2025 1:20 PM EDT Oxygen Saturation - - Inhaled Oxygen Concentration - - Weight 70.8 kg (156 lb) 04/16/2025 1:20 PM EDT Height 157.5 cm (5' 2 ) 04/16/2025 1:20 PM EDT Body Mass Index 28.53 04/16/2025 1:20 PM EDT Plan of Treatment Health Maintenance Due Date Last Done Comments Breast Cancer Screening 1960 Diabetes: Annual Foot Exam 1971 Diabetes: Annual Retina Eye Exam 1971 Cervical Cancer Screening: Pap Smear 1982 RSV Immunization Adult Patients (1 - Risk 60-74 years 1-dose series) 2021 Colorectal Cancer Screening: Colonoscopy 07/17/2024 Diabetes: Annual Urine Albumin-Creatinine Ratio (uACR) 07/17/2024 Medicare Annual Wellness Visit 07/17/2024 Social Influencers of Health Screening 07/17/2024 Depression Screening 08/07/2024 COVID-19 Vaccine ( season) 2025 12/03/2020, 11/05/2020 Influenza Vaccine (#1) 2025 , 06/24/2022, 06/11/2021, Additional history exists Diabetes: Blood Sugar Control Test (HGBA1C) 09/11/2025 03/11/2025, 08/27/2024, 04/17/2024 Diabetes: Annual GFR (Glomerular Filtration Rate) 01/08/2026 [...] saphenous branch: 0.14cm diameter upper calf= 4010ms Greenskeeper Supervisor Details A holly scale, color and doppler analysis ultrasound was performed. During the study longitudinal and transverse views were obtained. Pulsed wave doppler was performed. us Emiliana Herrera MD CV VASCULAR PROCEDURES Fi nal Result from Last 3 Months Insurance [employer] MEDICARE Member Subscriber Plan / Payer (Ef fective 2022-Present) Name:EDELMIRA RODRIGUEZ Relation to Subscriber:Self Name:Edelmira Boland Payer ID:[id number] Group ID:[id number] Type:Not on file Address: [place] [address] [place] [phone] Care Teams Adult Health Clinical Nurse Specialist Relationship Specialty Start Date End Date Marianne Smith MD [address] [place] [phone] PCP - General 04/23/24
--- OUTSIDE RECORDS SUMMARY | 2025-05-02 12:15 | XMS_ITS | Encounter Summary ---
Demographics Address [address] [place] [address] Mobile Phone Work Phone Home Phone Preferred Language es Marital Status Single Muslim Affiliation Unknown Race Other Race Ethnic Group Unknown Author Organization [employer] Address [address] 7[address] [place] [address] Care Team Providers Care Boot Lace Cutter Machine Name Role Phone Marianne Smith MD Primary Care Provider [phone] Reason for Visit * Reason Comments Med Refill Encounter Details Date Type Department Care Team ([facility] st Contact Info) Description 06/02/2023 Refill [facility] [address] [place], [place] [phone] Marianne Smith MD 230 [place], [place] [phone] Social History Tobacco Use Types Packs/Day Years Used Date Smoking Tobacco: Former Cigarettes Passive Smoke Exposure: Past Smokeless Tobacco: Never Alcohol Use Standard Drinks/Week Comments Never 0 (1 standard drink = 0.6 oz pur e alcohol) Housing Stability Answer Date Recorded What is your housing situation today? I have wai ivey 05/14/[address] you [...] Description 07/07/2025 2:30 PM EST Office Visit [facility] [address] [place] [address] Marianne Smith MD 230 [place] [address] documented as of this encounter Visit Diagnoses Not on filedocumented in this encounter Care Teams Boot Lace Cutter Machine Relationship Specialty Start Date End Date Marianne Smith MD [address] [place] [address] [phone] PCP - General Family Medicine 03/30/21 documented as of this encounter
--- OUTSIDE RECORDS SUMMARY | 2025-05-02 12:15 | XMS_ITS | Encounter Summary ---
Author Organization [employer] Address [address] [facility] 7t [place] [address] Care Team Providers Care Bar Useful Or Busser Name Role Phone Marianne Smith MD Primary Care Provider [phone] Reason for Visit * Reason Onset Date Comments Durable Medical Equipment 09/29/2022 Encounter Details Date Type Department Care Team ([facility] st Contact Info) Description 09/29/2022 Telephone [facility] 230 [place], [place] [phone] Marianne Smith MD 230 [place], [place] [phone] Durable Medical Equipment Social History Tobacco Use Types Packs/Day Years [...] not to disclose 2021 10:17 AM EDT COVID-19 Exposure Response Date Recorded In the last 10 days, have yo u been in contact with someone who was confirmed or suspected to have Coronavirus/COVID-19? No / Unsure 09/21/2022 11:04 AM EST documented as of this encounter Miscellaneous Notes * Telephone Encounter - Teodora Thomson - 09/29/2022 11:48 AM EST Script for compression stockings generated for providers signature * Telephone Encounter - Diaz Saunders - 09/29/2022 11:35 AM EST Tc from Malena with [facility] requesting a script for compression socks for pt. Malena requested for the script to be emailed to her at [email or web address] Please contact malena at [phone] documented in this encounter Plan of Treatment Upcoming Encounters Date Type Department Care Team (Late st Contact Info) Description 07/07/2025 2:30 PM EST Office Visit [facility] 230 [place], [place] [phone] Marianne Smith MD 230 [place] [address] documented as of this encounter Visit Diagnoses Not on filedocumented in this encounter Care Teams Bar Useful Or Busser Relationship Specialty Start Date End Date Marianne Smith MD 230 [place], [place] [phone] PCP - General Family Medicine 03/30/21 documented as of this encounter
--- OUTSIDE RECORDS SUMMARY | 2025-05-02 12:15 | XMS_ITS | Encounter Summary ---
Author Organization [employer] [facility] Address [address] [facility] 7t [place] [address] Care Team Providers Care Sales Store Checker Name Role Phone Marianne Smith MD Primary Care Provider [phone] Encounter Details Date Type Department Care Team (Late st Contact Info) Description 10/05/2022 Orders Only [facility] [address] [place] [address] [phone] Marianne Smith MD [address] [place] [address] [phone] Primary hypertension (Primary Dx) Social History Tobacco Use Types [...] AM EST documented as of this encounter Plan of Treatment Upcoming Encounters Date Type Department Care Team (Late st Contact Info) Description 07/07/2025 2:30 PM EST Office Visit [facility] [address] [place] [address] [phone] Marianne Smith MD [address] [place] [address] [phone] documented as of this encounter Visit Diagnoses Diagnosis Primary hypertension- Primary Unspecified essential hypertension documented in this encounter Care Teams Sales Store Checker Relationship Specialty Start Date End Date Marianne Smith MD 230 [place] [address] PCP - General Family Medicine 03/30/21 documented as of this encounter
--- OUTSIDE RECORDS SUMMARY | 2025-05-02 12:15 | XMS_ITS | Encounter Summary ---
Author Organization [employer] Address [address] 7t [place] [address] Care Team Providers Care Dog Groomer Name Role Phone Marianne Smith MD Primary Care Provider [phone] Reason for Visit * Reason Comments Med Refill Encounter Details Date Type Department Care Team ([facility] st Contact Info) Description 10/31/2024 Refill [facility] 230 [place], [place] [phone] Catherine Amor ANP 230 [place], [place] [phone] Type 2 diabetes mellitus with other specified complication, unspecified whether terminal system operator insulin use ([facility]) Social History Tobacco Use Types Packs/Day Years [...] housing situation today? I have wai ivey 10/30/[address] you li ve. Do you have problems with any of the following? Pests such as bugs, ants, or mice 10/30/2023 Food Insecurity Answer Date Recorded Within the past 12 months, y ou worried that your food would run out before you got money to buy more: Never True 10/30/2023 Within the past 12 months,th e food you bought just didn't last and you didn't have enough money to get more: Never True Transportation Answer Date Recorded In the past 12 months, has l ack of transportation kept you from medical appts, meetings, work or from getting things needed for daily living? No 10/30/2023 Utilities Answer Date Recorded In the past 12 months, has t he electric, gas, oil or water company threatened to shut off services in your home? No 10/30/2023 Depression Answer Date Recorded Patient Health Questionnaire-2 Score 1 08/27/2024 Comments Unknown Sex and Gender Information Value [...] Description 07/07/2025 2:30 PM EST Office Visit [facility] [address] [place] [phone] Marianne Smith MD [address] [place] [phone] documented as of this encounter Visit Diagnoses Diagnosis Type 2 diabetes mellitus with other specified complication, unspecified whether alf insulin use ([facility]) documented in this encounter Additional Health Concerns Assessment Noted Time PHQ-9 Depression Total Score: 6 08/27/19 25 11:30 AM EST documented as of this encounter Care Teams Dog Groomer Relationship Specialty Start Date End Date Marianne Smith MD [address] [place] [phone] PCP - General Family Medicine 03/30/21 documented as of this encounter
--- OUTSIDE RECORDS SUMMARY | 2025-05-02 12:15 | XMS_ITS | Encounter Summary ---
Author Organization [employer] Address [address] 7t [place] [address] Care Team Providers Care Advocacy Director Name Role Phone Marianne Smith MD Primary Care Provider [phone] Encounter Details Date Type Department Care Team (Late st Contact Info) Description 02/21/[address] [facility] 230 [place], [place] [phone] Marianne Smith MD 230 [place], [place] [phone] Social History Tobacco Use Types Packs/Day Years [...] Description 07/07/2025 2:30 PM EST Office [address] [facility] [address] [place] [phone] Marianne Smith MD [address] [place] [address] documented as of this encounter Visit Diagnoses Not on filedocumented in this encounter Additional Health Concerns Assessment Noted Time PHQ-9 Depression Total Score: 6 08/27/19 25 11:30 AM EST documented as of this encounter Care Teams Advocacy Director Relationship Specialty Start Date End Date Marianne Smith MD [address] [place] [address] [phone] PCP - General Family Medicine 03/30/21 documented as of this encounter
--- OUTSIDE RECORDS SUMMARY | 2025-05-02 12:15 | XMS_ITS | Encounter Summary ---
Author Organization [employer] Address [address] 7t [place] [address] Care Team Providers Care Registered Appraiser Name Role Phone Marianne Smith MD Primary Care Provider [phone] Reason for Visit * Reason Comments Med Refill Encounter Details Date Type Department Care Team ([facility] st Contact Info) Description 04/10/2025 Refill [facility] 230 [place], [place] [phone] Marianne Smith MD 230 [place], [place] [phone] Arthritis Social History Tobacco Use Types Packs/Day Years [...] housing situation today? I have wai ivey 03/11/[address] you li [...] Description 07/07/2025 2:30 PM EST Office Visit [facility] 230 [place] [address] Marianne Smith MD 230 [place] [address] documented as of this encounter Visit Diagnoses Diagnosis Arthritis Unspecified arthropathy, site unspecified documented in this encounter Additional Health Concerns Assessment Noted Time PHQ-9 Depression Total Score: 6 08/27/19 25 11:30 AM EST documented as of this encounter Care Teams Registered Appraiser Relationship Specialty Start Date End Date Marianne Smith MD [address] [place] [phone] PCP - General Family Medicine 03/30/21 documented as of this encounter
--- OUTSIDE RECORDS SUMMARY | 2025-05-02 12:15 | XMS_ITS | Encounter Summary ---
Author Organization [employer] Address [address] 7t [place] [address] Care Team Providers Care Slot Floor Supervisor Name Role Phone Marianne Smith MD Primary Care Provider [phone] Reason for Visit * Reason Onset Date Comments Med Refill 06/10/2024 Encounter Details Date Type Department Care Team ([facility] st Contact Info) Description 06/10/2024 Telephone [facility] 230 [place], [place] [phone] Marianne Smith MD 230 [place], [place] [phone] Med Refill Social History Tobacco Use Types Packs/Day Years Used Date Smoking Tobacco: Some Days Cigarettes Passive Smoke Exposure: Past Smokeless Tobacco: Never Alcohol Use Standard Drinks/Week Comments Never 0 (1 standard drink = 0.6 oz pur e alcohol) Housing Stability Answer Date Recorded What is your housing situation today? I have wai loni 10/30/[address] you li [...] AM EDT documented as of this encounter Miscellaneous Notes * Telephone Encounter - Mindi Osei LPN - 06/10/2024 8:54 AM EST Medication pended to PCP. * Telephone Encounter - Naveen Bah - 06/10/2024 8:31 AM EST TC from pt requesting medication refill. Medications needing refill : metoprolol succinate XL (Toprol-XL) 25 MG 24 hr tablet To be sent to: [facility] - [place], [place] - [address] [place] [address] documented in this encounter Plan of Treatment Upcoming Encounters Date Type Department Care Team (Late st Contact Info) Description 07/07/2025 2:30 PM EST Office Visit [facility] 230 [place] [address] Marianne Smith MD 230 [place] [address] documented as of this encounter Visit Diagnoses Not on filedocumented in this encounter Care Teams Slot Floor Supervisor Relationship Specialty Start Date End Date Marianne Smith MD 230 [place] [address] PCP - General Family Medicine 03/30/21 documented as of this encounter
--- OUTSIDE RECORDS SUMMARY | 2025-05-02 12:15 | XMS_ITS | Encounter Summary ---
Author Organization [employer] Address [address] [facility] 7t [place] [address] Care Team Providers Care Dietitian Consultant Name Role Phone Marianne Smith MD Primary Care Provider [phone] Encounter Details Date Type Department Care Team (Late st Contact Info) Description 07/20/2022 Orders Only [facility] [address] [place] [address] Mindi Osei LPN Social History Tobacco Use Types Packs/Day Years [...] Description 07/07/2025 2:30 PM EST Office Visit [facility] 230 [place] [address] Marianne mSith MD 230 [place] [address] documented as of this encounter Visit Diagnoses Not on filedocumented in this encounter Care Teams Dietitian Consultant Relationship Specialty Start Date End Date Marianne Smith MD 230 [place] [address] PCP - General Family Medicine 03/30/21 documented as of this encounter
--- OUTSIDE RECORDS SUMMARY | 2025-05-02 12:15 | XMS_ITS | Encounter Summary ---
Author Organization [employer] [facility] Address [address] [facility] 7t [place] [address] Care Team Providers Care White Washer Name Role Phone Marianne Smith MD Primary Care Provider [phone] Reason for Visit * Reason Comments Med Refill Encounter Details Date Type Department Care Team (Late Contact Info) Description 03/16/[address] [facility] MEDICINE [address] [place] [address] [phone] Marianne Smith MD [address] [place] [address] [phone] Arthritis Social History Tobacco Use Types Packs/Day [...] Encounters Date Type Department Care Team (Late Contact Info) Description 07/07/2025 2:30 PM EST Office Visit [facility] [address] [place] [phone] Marianne Smith MD [address] [place] [address] [phone] documented as of this encounter Visit Diagnoses Diagnosis Arthritis Unspecified arthropathy, site unspecified documented in this encounter Care Teams White Washer Relationship Specialty Start Date End Date Marianne Smith MD 230 [place] [address] PCP - General Family Medicine 03/30/21 documented as of this encounter
--- OUTSIDE RECORDS SUMMARY | 2025-05-02 12:15 | XMS_ITS | Encounter Summary ---
Author Organization [employer] [facility] Address [address] [facility] 7t [place] [address] Care Team Providers Care Reclamation Kettle Tender Name Role Phone Marianne Smith MD Primary Care Provider Encounter Details Date Type Department Care Team (Late st Contact Info) Description 11/30/2022 Orders Only [facility] [address] [place] [address] [phone] Marianne Smith MD [address] [place] [address] [phone] Vertigo (Primary Dx) Social History Tobacco Use [...] 2:30 PM EST Office Visit [facility] [address] [place] [address] [phone] Marianne Smith MD [address] [place] [address] [phone] documented as of this encounter Visit Diagnoses Diagnosis Vertigo- Primary Dizziness and giddiness documented in this encounter Care Teams Reclamation Kettle Tender Relationship Specialty Start Date End Date Marianne Smith MD 230 [place] [address] PCP - General Family Medicine 03/30/21 documented as of this encounter
--- OUTSIDE RECORDS SUMMARY | 2025-05-02 12:15 | XMS_ITS | Encounter Summary ---
Author Organization [employer] [facility] Address [address] [facility] 7t [place] [address] Care Team Providers Care Land Leasing Examiner Name Role Phone Marianne Smith MD Primary Care Provider [phone] Reason for Visit * Reason Comments Med Refill Encounter Details Date Type Department Care Team (Late Contact Info) Description 01/30/2023 Refill [facility] [address] [place] [address] [phone] Marianne Smith MD [address] [place] [phone] Social History Tobacco Use Types Packs/Day Years [...] suspected to have Coronavirus/COVID-19? No / Unsure 01/30/2023 12:00 PM EDT documented as of this encounter Plan of Treatment Upcoming Encounters Date Type Department Care Team ([facility] Contact Info) Description 07/07/2025 2:30 PM EST Office Visit [facility] [address] [place] [address] [phone] Marianne Smith MD [address] [place] [address] documented as of this encounter Visit Diagnoses Not on filedocumented in this encounter Care Teams Land Leasing Examiner Relationship Specialty Start Date End Date Marianne Smith MD [address] [place] [address] [place] [address] PCP - General Family Medicine 03/30/21 documented as of this encounter
--- OUTSIDE RECORDS SUMMARY | 2025-05-02 12:15 | XMS_ITS | Encounter Summary ---
Author Organization [employer] [facility] Address [address] [facility] 7t [place] [address] Care Team Providers Care Campus Security Officer Name Role Phone Marianne Smith MD Primary Care Provider [phone] Reason for Visit * Reason Comments Med Refill Encounter Details Date Type Department Care Team (Late Contact Info) Description 09/02/2022 Refill [facility] 230 [place], [place] [phone] Marianne Smith MD [address] [place] [address] [phone] Social History Tobacco Use Types Packs/Day Years Used Date Smoking Tobacco: Never Smokeless Tobacco: Never Alcohol Use Standard Drinks/Week [...] PM EST Office Visit [facility] [address] [place] [phone] Marainne Smith MD [address] [place] [phone] documented as of this encounter Visit Diagnoses Not on filedocumented in this encounter Care Teams Campus Security Officer Relationship Specialty Start Date End Date Marianne Smith MD [facility] [place] [address] PCP - General Family Medicine 03/30/21 documented as of this encounter
--- OUTSIDE RECORDS SUMMARY | 2025-05-02 12:15 | XMS_ITS | Encounter Summary ---
Author Organization [employer] Address [address] 7t [place] [address] Care Team Providers Care Leather Tooler Name Role Phone Marianne Smith MD Primary Care Provider [phone] Reason for Visit * Reason Comments Med Refill Encounter Details Date Type Department Care Team (Late st Contact Info) Description 04/27/2025 Refill [facility] [address] [place], [place] [phone] Name, MD [place] [address] [place] [address] Primary osteoarthritis of left knee Social History Tobacco Use Types Packs/Day Years [...] Description 07/07/2025 2:30 PM EST Office Visit [facility] [address] [place] [address] Marianne Smith MD [address] [place] [address] documented as of this encounter Visit Diagnoses Diagnosis Primary osteoarthritis of left knee documented in this encounter Additional Health Concerns Assessment Noted Time PHQ-9 Depression Total Score: 6 08/27/19 25 11:30 AM EST documented as of this encounter Care Teams Leather Tooler Relationship Specialty Start Date End Date Marianne Smith MD [address] [place] [address] PCP - General Family Medicine 03/30/21 documented as of this encounter
== END 2025-05-02 11:19 | disposition home or self-care (01) ==
LOC: HO.HOS 10:43
PROVIDERS: PCP General Practice
DX: M25.641 Stiffness of right hand, not elsewhere classified (principal); M25.642 Stiffness of left hand, not elsewhere classified; R20.0 Anesthesia of skin; R20.2 Paresthesia of skin
CPT/HCPCS: 99203

== ENCOUNTER → 2025-05-02 10:42 | Outpatient (BNVA) | payer OTHER, SELFPAY | PROVIDERS: PCP General Practice | DX: M25.641 Stiffness of right hand, not elsewhere classified (principal); M25.642 Stiffness of left hand, not elsewhere classified; R20.0 Anesthesia of skin; R20.2 Paresthesia of skin | CPT/HCPCS: 99202 ==

== ENCOUNTER 2025-06-16 08:07 | Outpatient (REF) | payer OTHER, SELFPAY ==
--- NOTE | ~2025-06-16 | XR_ITS ---
EXAMINATION: XR KNEE, LEFT CLINICAL INFORMATION: M25.562 - Pain in left knee COMPARISON: January 11, 2019. TECHNIQUE: AP view in standing position both knees. Lateral and sunrise views of the left knee. FINDINGS: Joint space narrowing involving mostly the medial compartments both knees pronounced on the left knee. Sclerosis along the articular surfaces. Marginal osteophyte formation mostly in the medial compartment, left knee. No suprapatellar bursa joint effusion, left knee. No lytic or blastic lesions. No subcutaneous emphysema. XR/XR knee LT 3V IMPRESSION: Tricompartmental osteoarthrosis/osteoarthritis involving mostly the medial compartment of the left knee. Worsened since prior exam. Electronically signed by: Haim Potter MD 06/16/2025 02:37 PM EST [facility]
--- OUTSIDE RECORDS SUMMARY | 2025-06-16 08:23 | XMS_ITS | Encounter Summary ---
Demographics Address [address] [facility] [place] [address] Mobile Phone Work Phone Home Phone Preferred Language es Marital Status Single Hoahaoism Affiliation Unknown Race Other Race Ethnic Group Unknown Author Organization [employer] Address [address] [place] [address] Care Team Providers Care Needle Loom Operator Name Role Phone Marianne Smith MD Primary Care Provider [phone] Reason for Visit * Reason Comments Med Refill Encounter Details Date Type Department Care Team ([facility] st Contact Info) Description 09/12/2023 Refill [facility] 230 [place], [place] [phone] Mindi Alarcon DO 230 [place], [place] [phone] Social History Tobacco Use Types Packs/Day Years [...] Description 07/07/2025 2:30 PM EST Office Visit [facility] [address] [place] [address] Marianne Smith MD [address] [place] [address] documented as of this encounter Visit Diagnoses Not on filedocumented in this encounter Care Teams Needle Loom Operator Relationship Specialty Start Date End Date Marianne Smith MD [address] [place] [address] PCP - General Family Medicine 03/30/21 documented as of this encounter
--- OUTSIDE RECORDS SUMMARY | 2025-06-16 08:23 | XMS_ITS | Encounter Summary ---
Author Organization [employer] Address [address] 7t [place] [address] Care Team Providers Care Billiard Table Assembler Name Role Phone Marianne Smith MD Primary Care Provider [phone] Reason for Visit * Reason Comments Med Refill Encounter Details Date Type Department Care Team ([facility] st Contact Info) Description 06/12/2025 Refill [facility] 230 [place], [place] [phone] Marianne Smith MD 230 [place], [place] [phone] Primary insomnia; Gastroesophageal reflux disease without esophagitis Social History Tobacco Use Types Packs/Day Years [...] Description 07/07/2025 2:30 PM EST Office Visit [facility] MEDICINE [address] [place] [address] Marianne Smith MD [address] [place] [address] documented as of this encounter Visit Diagnoses Diagnosis Primary insomnia Persistent disorder of initiating or maintaining sleep Gastroesophageal reflux disease without esophagitis Esophageal reflux documented in this encounter Additional Health Concerns Assessment Noted Time PHQ-9 Depression Total Score: 6 08/27/19 25 11:30 AM EST documented as of this encounter Care Teams Billiard Table Assembler Relationship Specialty Start Date End Date Marianne Smith MD [address] [place] [address] PCP - General Family Medicine 03/30/21 documented as of this encounter
--- OUTSIDE RECORDS SUMMARY | 2025-06-16 08:23 | XMS_ITS | Encounter Summary ---
Demographics Address [address] [place] [address] Mobile Phone Work Phone Home Phone Preferred Language es Marital Status Single Mandaen Affiliation Unknown Race Other Race Ethnic Group Unknown Author Organization [employer] Address [address] [facility] 7t [place] [address] Care Team Providers Care Oracle Financials Consultant Name Role Phone Marianne Smith MD Primary Care Provider [phone] Reason for Visit * Reason Comments Med Refill Encounter Details Date Type Department Care Team ([facility] st Contact Info) Description 06/02/2023 Refill [facility] 230 [place], [place] [phone] Marianne Smith MD 230 [place], [place] [phone] Social History Tobacco Use Types Packs/Day Years [...] Description 07/07/2025 2:30 PM EST Office Visit [facility] [address] [place] [address] Marianne Smith MD 230 [place] [address] documented as of this encounter Visit Diagnoses Not on filedocumented in this encounter Care Teams [employer] Consultant Relationship Specialty Start Date End Date Marianne Smith MD [address] [place] [address] [phone] PCP - General Family Medicine 03/30/21 documented as of this encounter
--- OUTSIDE RECORDS SUMMARY | 2025-06-16 08:23 | XMS_ITS | Encounter Summary ---
Author Organization [employer] [facility] Address [address] [facility] 7t [place] [address] Care Team Providers Care Cutlet Maker Pork Name Role Phone Marianne Smith MD Primary Care Provider [phone] Reason for Visit * Reason Comments Med Refill Encounter Details Date Type Department Care Team (Late Contact Info) Description 03/16/2023 Refill [facility] MED[facility] [address] [place] [address] [phone] Marianne Smith MD [address] [place] [address] [phone] Arthritis Social History Tobacco Use Types Packs/Day [...] Description 07/07/2025 2:30 PM EST Office Visit [facility] [address] [place] [address] Marianne Smith MD [address] [place] [address] [phone] documented as of this encounter Visit Diagnoses Diagnosis Arthritis Unspecified arthropathy, site unspecified documented in this encounter Care Teams Cutlet Maker Pork Relationship Specialty Start Date End Date Marianne Smith MD 230 [place] [address] PCP - General Family Medicine 03/30/21 documented as of this encounter
--- OUTSIDE RECORDS SUMMARY | 2025-06-16 08:23 | XMS_ITS | Encounter Summary ---
Author Organization [employer] Address [address] [facility] [address] 7t [place] [address] Care Team Providers Care Dinkey Press Operator Name Role Phone Marianne Smith MD Primary Care Provider [phone] Encounter Details Date Type Department Care Team (Late st Contact Info) Description 02/21/2025 Orders Only [facility] 230 [place], [place] [phone] Marianne Smith MD 230 [place], [place] [phone] Social History Tobacco Use Types Packs/Day Years [...] 2:30 PM EST Office Visit [facility] [address] [place] [address] Marianne Smith MD [address] [place] [phone] documented as of this encounter Visit Diagnoses Not on filedocumented in this encounter Additional Health Concerns Assessment Noted Time PHQ-9 Depression Total Score: 6 08/27/19 25 11:30 AM EST documented as of this encounter Care Teams Dinkey Press Operator Relationship Specialty Start Date End Date Marianne Smith MD [address] [place] [address] [phone] PCP - General Family Medicine 03/30/21 documented as of this encounter
--- OUTSIDE RECORDS SUMMARY | 2025-06-16 08:23 | XMS_ITS | Encounter Summary ---
Author Organization [facility] [facility] Address [address] [facility] 7t [place] [address] Care Team Providers Care Film Processor Name Role Phone Marianne Smith MD Primary Care Provider [phone] Reason for Visit * Reason Comments Med Refill Encounter Details Date Type Department Care Team (Late Contact Info) Description 01/30/2023 Refill [facility] [address] [place] [address] [phone] Marianne Smith MD [address] [place] [address] Social History Tobacco Use Types Packs/Day [...] Upcoming Encounters Date Type Department Care Team ([facility] Contact Info) Description 07/07/2025 2:30 PM EST Office Visit [facility] [address] [place] [address] [phone] Marianne Smith MD [address] [place] [address] documented as of this encounter Visit Diagnoses Not on filedocumented in this encounter Care Teams Film Processor Relationship Specialty Start Date End Date Marianne Smith MD [address] [place] [address] [place] [address] PCP - General Family Medicine 03/30/21 documented as of this encounter
--- OUTSIDE RECORDS SUMMARY | 2025-06-16 08:23 | XMS_ITS | Encounter Summary ---
Author Organization [employer] [facility] Address [address] [facility] 7t [place] [address] Care Team Providers Care Information Systems Security Analyst Name Role Phone Marianne Smith MD Primary Care Provider [phone] Encounter Details Date Type Department Care Team (Late st Contact Info) Description 11/30/2022 Orders Only [facility] MEDICINE [address] [place] [address] [phone] Marianne Smith MD [address] [place] [address] [phone] Vertigo (Primary Dx) Social History Tobacco Use [...] Description 07/07/2025 2:30 PM EST Office Visit [facility] [address] [place] [address] [phone] Marianne Smtih MD [address] [place] [address] [phone] documented as of this encounter Visit Diagnoses Diagnosis Vertigo- Primary Dizziness and giddiness documented in this encounter Care Teams Information Systems Security Analyst Relationship Specialty Start Date End Date Marianne Smith MD 230 [place] [address] PCP - General Family Medicine 03/30/21 documented as of this encounter
--- OUTSIDE RECORDS SUMMARY | 2025-06-16 08:23 | XMS_ITS | Encounter Summary ---
Author Organization [employer] Address [address] 7t [place] [address] Care Team Providers Care Banking Services Officer Name Role Phone Marianne Smith MD Primary Care Provider [phone] Reason for Visit * Reason Comments Med Refill Encounter Details Date Type Department Care Team ([facility] st Contact Info) Description 04/10/2025 Refill [facility]INE 230 [place], [place] [phone] Marianne Smith MD 230 [place], [place] [phone] Arthritis Social History Tobacco Use Types Packs/Day [...] 2:30 PM EST Office Visit [facility] MEDICINE 230 [place] [address] Marianne Smith MD 230 [place] [address] documented as of this encounter Visit Diagnoses Diagnosis Arthritis Unspecified arthropathy, site unspecified documented in this encounter Additional Health Concerns Assessment Noted Time PHQ-9 Depression Total Score: 6 08/27/19 25 11:30 AM EST documented as of this encounter Care Teams Banking Services Officer Relationship Specialty Start Date End Date Marianne Smith MD [address] [place] [address] PCP - General Family Medicine 03/30/21 documented as of this encounter
--- OUTSIDE RECORDS SUMMARY | 2025-06-16 08:24 | XMS_ITS | Encounter Summary ---
Author Organization [employer] Address [address] [facility] [address] 7t [place] [address] Care Team Providers Care Fumigator And Sterilizer Name Role Phone Marianne Smith MD Primary Care Provider [phone] Reason for Visit * Reason Onset Date Comments Med Refill 06/10/2024 Encounter Details Date Type Department Care Team ([facility] st Contact Info) Description 06/10/2024 Telephone [facility] MEDICINE 230 [place], [place] [phone] Marianne Smith MD 230 [place], [place] [phone] Med Refill Social History Tobacco Use Types [...] 24 hr tablet To be sent to: [facility] - [place], [place] - [address] [place] [address] documented in this encounter Plan of Treatment Upcoming Encounters Date Type Department Care Team (Late st Contact Info) Description 07/07/2025 2:30 PM EST Office Visit [facility] 230 [place] [address] Marianne Smith MD 230 [place] [address] documented as of this encounter Visit Diagnoses Not on filedocumented in this encounter Care Teams Fumigator And Sterilizer Relationship Specialty Start Date End Date Marianne Smith MD 230 [place] [address] PCP - General Family Medicine 03/30/21 documented as of this encounter
--- OUTSIDE RECORDS SUMMARY | 2025-06-16 08:24 | XMS_ITS | Encounter Summary ---
Author Organization [employer] [facility] Address [address] [facility] 7t [place] [address] Care Team Providers Care Infrastructure Software Engineer Name Role Phone Marianne Smith MD Primary Care Provider [phone] Reason for Visit * Reason Comments Med Refill Encounter Details Date Type Department Care Team (Late Contact Info) Description 09/02/2022 Refill [facility] 230 [place] [address] Marianne Smith MD [address] [place] [address] [phone] Social History Tobacco Use Types Packs/Day Years [...] Description 07/07/2025 2:30 PM EST Office Visit [facility] MEDICINE [address] [place] [phone] Marianne Smith MD [address] [place] [address] documented as of this encounter Visit Diagnoses Not on filedocumented in this encounter Care Teams Infrastructure Software Engineer Relationship Specialty Start Date End Date Marianne Smith MD [place] [address] PCP - General Family Medicine 03/30/21 documented as of this encounter
--- OUTSIDE RECORDS SUMMARY | 2025-06-16 08:24 | XMS_ITS | Clinical Summary ---
Author Organization [facility] Address [address] [place] [address] Phone Care Team Providers Care Trim Setter Helper Name Role Phone Marianne Smith MD Primary Care Provider [phone] Allergies Active Allergy Reactions Criticality Noted Date [...] PM EDT Office Visit [facility] [place] [address] [place] [address] Emiliana Herrera MD Varicose veins of leg with swelling, bilateral (Primary Dx) from Last 3 Months Social History Tobacco [...] Last Done Comments Breast Cancer Screening 1961 Colorectal Cancer Screening: Colonoscopy 1961 Diabetes: Annual Foot Exam 1971 Diabetes: Annual Retina Eye Exam 1971 Cervical Cancer Screening: Pap Smear 1982 RSV Immunization Adult Patients (1 - Risk 50-74 years 1-dose series) 2011 Diabetes: Annual Urine Albumin-Creatinine Ratio (uACR) 07/17/2024 [...] on patient's age to complete this topic Insurance [facility] MEDIC[facility] Member Subscriber Plan / Payer (Ef fective 2022-Present) Name:EDELMIRA RODRIGUEZ Relation to Subscriber:Self Name:Edelmira Boland Payer ID:[id number] Group ID:[id number] Type:Not on file Address: [facility] [place] [address] Care Teams Trim Setter Helper Relationship Specialty Start Date End Date Marianne Smith MD [address] [place] [address] PCP - General 04/23/24
--- OUTSIDE RECORDS SUMMARY | 2025-06-16 08:24 | XMS_ITS | Encounter Summary ---
Author Organization [email or web address] [facility] Address [address] [facility] 7t [place] [address] Care Team Providers Care Motor Runner Name Role Phone Marianne Smith MD Primary Care Provider Encounter Details Date Type Department Care Team (Late st Contact Info) Description 10/05/2022 Orders Only [facility] MEDICINE [address] [place] [address] [phone] Marianne Smith MD [address] [place] [address] [phone] Primary hypertension (Primary Dx) Social History Tobacco [...] EST Office Visit [facility] MEDICINE [address] [place] [address] [phone] Marianne Smith MD [address] [place] [address] [phone] documented as of this encounter Visit Diagnoses Diagnosis Primary hypertension- Primary Unspecified essential hypertension documented in this encounter Care Teams Motor Runner Relationship Specialty Start Date End Date Marianne Smith MD 230 [place] [address] PCP - General Family Medicine 03/30/21 documented as of this encounter
--- OUTSIDE RECORDS SUMMARY | 2025-06-16 08:24 | XMS_ITS | Clinical Summary ---
Author Organization [employer] Address 75 [facility] 7t [place] [address] Care Team Providers Care Quilting Machine Operator Name Role Phone Marianne Smith MD Primary Care Provider [phone] Allergies Active Allergy Reactions Criticality Noted Date Comments Tramadol 05/24/2021 Medications TRUEplus Lancets 33G miscIndications:T ype 2 diabetes mellitus with hyperglycemia (HCC) TEST BLOOD SUGAR 3 TIMES A DAY 100 each 11 11/15/19 23 Active Continuous Blood Gluc Sensor (Dexcom G7 Sensor) miscIndications:T ype 2 diabetes mellitus with other specified complication, without long-term current use of insulin (HCC) 1 each 3 times daily. 1 each [...] polyneuropathy associated with type 2 diabetes mellitus (HCC) Apply 1 patch topically Once per day. Remove & discard patch within 12 hours or as directed by . 30 patch 6 04/17/20 24 Active FREESTYLE LITE test stripIndications: Type 2 diabetes mellitus with other specified complication, without long-term current use of insulin (HCC) USE TO TEST BLOOD SUGAR THREE TIMES DAILY 100 strip 11 07/01/20 24 Active lisinopril 40 MG tabletIndications :Essential hypertension TAKE 1 TABLET BY MOUTH EVERY DAY 90 tablet 3 07/08/20 24 Active cyclobenzaprine (Flexeril) 5 MG tablet TAKE 1 TABLET BY MOUTH TWICE DAILY NEEDED FOR MUSCLE SPASMS 40 tablet 1 09/20/19 25 Active Blood Glucose Monitoring Suppl (KinoptoStyle Lite) w/Device kitIndications:Ty pe 2 diabetes mellitus with other specified complication, unspecified whether fci insulin use (HCC) Inject 1 kit into the skin Once per day. Use as directed 1 kit 11/01/19 25 Active metFORMIN (Glucophage) 500 MG tablet TAKE 2 TABLETS BY MOUTH TWICE DAILY IN THE MORNING AND EVENING WITH MEALS 360 tablet 3 11/19/19 25 Active Diclofenac Sodium 1 % gelIndications:Ar [...] PAIN 42.5 g 3 04/28/20 25 Active metoprolol succinate XL (Toprol-XL) 25 MG 24 hr tablet TAKE 1 TABLET BY MOUTH EVERY DAY 90 tablet 3 05/27/20 25 Active traZODone (Desyrel) 50 MG tabletIndications :Primary insomnia TAKE 1 TO 2 TABLETS BY MOUTH AT BEDTIME NEEDED FOR SLEEP 90 tablet 3 06/13/20 25 Active pantoprazole (ProtoNix) 20 MG EC tabletIndications :Gastroesophageal reflux disease without esophagitis TAKE 1 TABLET BY MOUTH EVERY DAY BEFORE BREAKFAST FOR HEARTBURN 90 tablet 3 06/13/20 25 Active pantoprazole (Protonix) 20 MG EC tabletIndications :Gastroesophageal reflux disease without esophagitis Take 1 tablet (20 mg) by mouth before breakfast. For heartburn 90 tablet 3 04/17/20 24 025 Discontinued metoprolol succinate XL (Toprol-XL) 25 MG 24 hr tablet TAKE 1 TABLET BY MOUTH EVERY DAY 90 tablet 3 06/10/20 24 025 Discontinued traZODone (Desyrel) 50 MG tabletIndications :Primary insomnia TAKE 1 TO 2 TABLETS BY MOUTH EVERY DAY AT BEDTIME NEEDED FOR SLEEP 90 tablet 3 11/30/19 25 025 Discontinued Active Problems Problem Noted [...] Diagnosed Date Resolved Date Abnormal metabolism 07/29/2022 09/11/20 24 Assessment & Plan (07/29/2022 12:18 PM EST): Check TSH Encounters Date Type Department Care Team Description 06/12/2025 Refill [facility] [address] [place] [address] Marianne Smith MD Primary insomnia; Gastroesophageal reflux disease without esophagitis 05/26/2025 Refill [facility] [address] [place] [address] Marianne Smith MD 04/27/2025 Refill [facility] [address] [place], [place] [phone] Name, MD Braxton Primary osteoarthritis of left knee 04/18/2025 Telephone [facility] [address] [place], [place] [phone] Marianne Smith MD Durable Medical Equipment ([employer]: DME: Compression Socks) 04/10/2025 Refill [facility] [address] [place] [address] Marianne Smith MD Arthritis from Last 3 Months Immunizations Immunization Administration [...] Description 07/07/2025 2:30 PM EST Office Visit [facility] [address] [place] [address] Marianne Smith MD [address] [place] [address] Health Maintenance Due Date Last Done Comments [...] complication, without long-term current use of insulin ([facility]) BI MAMMOGRAM SCREENING TOMOSYNTHESIS BILATERAL Routine 07/09/2024 [...] complication, without long-term current use of insulin ([facility]) HPV MRNA E6/E7 REFLEX TO HPV 16, 18/45 Routine 07/07/2021 7:53 AM EST THINPREP IMAGING SYSTEM PAP Routine 07/07/2021 7:53 AM EST from Last 3 Months or Most Recently Relevant to Health Maintenance Results * (ABNORMAL) POCT HGB A1C (03/11/2025 11:23 AM EDT) Hemoglobin A1C 7.3(A) 4.0 - 5.7 % QC Media Lot # [id number] Lot# Expiration Date Blood 03/11/2025 11:2 3 AM EDT Marianne Smith MD POINT OF CARE TEST ENTER/EDIT ORDERABLES Final Result * BI Mammogram Screening Tomosynthesis Bilateral (07/09/2024 10:30 AM EST) Anatomical Region Laterality Modality Breast Bilateral Mammography 07/09/2024 10:3 0 AM EST Narrative 07/15/2024 5:28 PM EST [facility] [address] [place] [address] Mammography Report Signed Patient: Summer Ruiz MR#: [id number] : 1960 Acct:[id number] Age/Sex: 64 / F ADM Date: 07/09/24 Loc: [facility] Attending Dr: Marianne Smith MD Ordering Physician: Marianne Smith Results: 1Negative Date of Service: 07/09/24 Follow Up: 1 Year From Orig ina Mammogram Procedure(s): MM tomosynthesis screening BI Accession Number(s): [id number] cc: Marianne Smith EXAMINATION: MM SCREENING DIGITAL [...] by: Radha Narvaez DO 07/15/2024 05:25 PM [facility] Dictated By: Radha Narvaez DO Signed By: <Electronically signed by Radha Narvaez DO in OV> 07/15/24 1725 DD/ 1030 TD/TT: 07/09/24 1048 Nurse Auditor: Procedure Note Donotuseinterpreter, Image - 07/15/2024 [facility] [address] [place] [address] Dr. [place], [place] [address] Mammography Report Signed Patient: Kristen RuizmMR#: [id number] : 1960cct:[id number] Age/Sex: 64 / FADM Date: 07/09/24 Loc: HO.MAMMO Attending Dr: Marianne Smith MD Ordering Physician: Nayana Smithults: 1Negative Date of Service: 07/09/24Follow Up: 1 Year From Orig ina Mammogram Procedure(s): MM tomosynthesis screening BI Accession Number(s): [id number] cc: Marianne Smith EXAMINATION: MM SCREENING DIGITAL [...] by: Radha Narvaez DO 07/15/2024 05:25 PM [facility] Dictated By: Radha Narvaez DO Signed By: <Electronically signed by Radha Narvaez DO in OV> 07/15/24 1725 DD/ 1030 TD/TT: 07/09/24 1048 Nurse Auditor: Marianne Smith MD IMG BI PROCEDURES Final Result * Albumin, Random Urine W/Creatinine (11/07/2023 11:48 AM EDT) Creatinine, Urine 227.27 mg/dL [facility] Microalbumin Urine 29.0 mg/L [facility] Microalbum Creatinine Ratio Ur 12.7 <30 ug/mg cr [facility] Comment:Albumin/Creatinine R atio Reference Ranges: Normal: < 30 ug/mg creatinine Microalbuminuria: 30 - 300 ug/mg creatinineClinical Albuminuria: > 300 ug/mg creatinine Urine (Urine, Random) 11/07/2023 11:48 AM EDT 11/07/2023 7:21 PM EDT Marianne Smith MD LAB URINE ORDERABLES Final Res ult Performing Organization Address [facility]/ZIP Co de Phone Number [facility] [address] [place] [address] [phone] * Hepatitis C Antibody with Reflex to HCV, RNA, Quantitative, Real-Time PCR (11/07/2023 11:48 AM EDT) Hepatitis C Antibody Nonreactive Nonreactive [facility] Comment:Antibodies to HCV no t detected; does not exclude early acuteHCV infection. Blood Venous blood specimen / Unknown 11/07/2023 11:48 AM EDT 11/07/2023 6:56 PM EDT Marianne Smith MD LAB BLOOD ORDERABLES Final Res ult Performing Organization Address City/[facility]/ZIP Co de Phone Number [facility] [address] [place] [phone] [phone] * HIV-1/2 Antigen and Antibodies, Fourth Generation, with Reflexes (11/07/2023 11:48 AM EDT) HIV AB/AG Nonreactive Nonreactive [facility] Comment:HIV-1 p24 Ag and/or HIV-1/HIV-2 Ab not detected.A test result that is nonreactive does not exclude thepossibility of exposure to or infection with HIV-1 and/orHIV-2. Nonreactive results in this assay for individualswith prior exposure to HIV-1 and/or HIV-2 may be due toantigen and antibody levels that are below the limit ofdetection of this assay.The [employer]ru[employer] HIV Ag/Ab Combo assay result andsupplemental assay results should be interpreted inconjunction with the patient's clinical presentation,history and other laboratory results. If the results areinconsistent with clinical evidence, additional testing issuggested to confirm the result. Blood Venous blood specimen / Unknown 11/07/2023 11:48 AM EDT 11/07/2023 6:56 PM EDT Marianne Smith MD LAB BLOOD ORDERABLES Final Res ult Performing Organization Address [facility] Co de Phone Number [facility] [address] [place] [address] [phone] * (ABNORMAL) Lipid Panel, Standard (11/07/2023 11:48 AM EDT) Triglycerides 197(H) <150 mg/dL [facility] Comment:Desirable Triglyceri de: less than 150 mg/dLBorderline High Triglyceride 150-199 mg/dLHigh Triglyceride: 200-499 mg/dLVery High Triglyceride: greater than or equal to 5OO mg/dL Cholesterol 158 <200 mg/dL [facility] Comment:Desirable Cholestero l: less than 200 mg/dLBorderline High Cholesterol: 200-239 mg/dLHigh Cholesterol: greater than 239 mg/dL LDL Cholesterol Calculated 80 <100 mg/dL [facility] Comment:Desirable LDL: less than 100 mg/dLNear Optimal/Above Optimal LDL: 110- 129 mg/dLBorderline High LDL: 130-159 mg/dLHigh LDL: 160-189 mg/dLVery High LDL: greater than or equal to 190 mg/dL HDL Cholesterol 39(L) >40 mg/dL [facility] Comment:Desirable HDL: great er than 40 mg/dL Note: This HDL assay may give artificially low results in patients with liver disease. Blood Venous blood specimen / Unknown 11/07/2023 11:48 AM EDT 11/07/2023 6:56 PM EDT Marianne Smith MD LAB BLOOD ORDERABLES Final Res ult Performing Organization Address [facility]/ZIP Co de Phone Number [facility] [address] [place] [address] [phone] * THINPREP TIS PAP (07/07/2021 7:53 [...] has been evaluated with computer assisted technology. [facility] Mechanical Designer : SEE COMMENT [facility] Comment: RMM, CT(ASCP) CT screening location: [place] [address] Interpretation/R esult: Negative for intraepithelial lesion or malignancy. [facility] LMP: NONE GIVEN [facility] Prev. BX: NONE [facility]IVEN [facility] Prev. PAP: NONE GIVEN [facility] SOURCE: None given [facility] Statement Of Adequacy: SEE COMMENT [facility] Comment: Satisfactory for evaluation. Endocervical/transformation zone component present. 07/07/2021 7:53 AM EST us Marianne Smith MD LAB PATHOLOGY ORDERABLES Final Result [facility] [address] * HPV mRNA E6/E7 REFLEX TO HPV 16, 18/45 (07/07/2021 7:53 AM EST) HPV nRNA E6/E7 Not Detected Not Detected [facility] Comment: Methodology: Nursing Techn-Mediated Amplification This assay detects E6/E7 viral messenger RNA (mRNA) from 14 high-risk HPV types (16,18,31,33,35,39,45,51,52,56,58,59,66,68). The analytical performance characteristics of this assay have been determined by [employer]. The modifications have not been cleared or approved by the FDA. This assay has been validated pursuant to the CLIA regulations and is used for clinical purposes. For additional information, please refer to http://education.[employer]Phizzle/faq/KWO565g5 (This link if provided for information/ educational purposes only.) NO COLLECTION DATE RECEIVED. WE HAVE USED THE DATE THE SPECIMEN WAS RECEIVED BY THIS LABORATORY THE COLLECTION DATE. IF THIS IS INCORRECT, PLEASE CONTACT CLIENT SERVICES. PHONE NUMBER: 07/07/2021 7:53 AM EST Marianne Smith MD LAB CYTOLOGY ORDERABLES Final Result [facility] [address] from Last 3 Months or Most Recently Relevant to Health Maintenance Insurance [facility] ONE CARE < 65 [place] [id number] Care Teams Quilting Machine Operator Relationship Specialty Start Date End Date Marianne Smith MD [address] [place] [address] PCP - General Family Medicine 03/30/21
--- OUTSIDE RECORDS SUMMARY | 2025-06-16 08:24 | XMS_ITS | Encounter Summary ---
Author Organization [employer] Address [address] [facility] [address] [place] [address] Care Team Providers Care Asphalt Mixing Machine Operator Name Role Phone Marianne Smith MD Primary Care Provider [phone] Reason for Visit * Reason Comments Med Refill Encounter Details Date Type Department Care Team ([facility] st Contact Info) Description 10/31/2024 Refill [facility] [address] [place], [place] [phone] Catherine Amor ANP [address] [place], [place] [phone] Type 2 diabetes mellitus with other specified complication, unspecified whether long term care social worker insulin use ([facility]) Social History Tobacco Use Types [...] Description 07/07/2025 2:30 PM EST Office Visit [facility] [address] [place] [address] Marianne Smith MD [address] [place] [phone] documented as of this encounter Visit Diagnoses Diagnosis Type 2 diabetes mellitus with other specified complication, unspecified whether intermediate insulin use (HCC) documented in this encounter Additional Health Concerns Assessment Noted Time PHQ-9 Depression Total Score: 6 08/27/19 25 11:30 AM EST documented as of this encounter Care Teams Asphalt Mixing Machine Operator Relationship Specialty Start Date End Date Marianne Smith MD [address] [place] [phone] PCP - General Family Medicine 03/30/21 documented as of this encounter
--- OUTSIDE RECORDS SUMMARY | 2025-06-16 08:24 | XMS_ITS | Encounter Summary ---
Author Organization [employer] Address 75 [facility] 7t [place] [address] Care Team Providers Care Shotweld Operator Name Role Phone Marianne Smith MD Primary Care Provider [phone] Encounter Details Date Type Department Care Team (Late st Contact Info) Description 07/20/2022 Orders Only [facility] [address] [place] [address] Mindi Osei LPN Social History Tobacco Use [...] Description 07/07/2025 2:30 PM EST Office Visit [facility] [address] [place] [address] Marianne Smith MD [address] [place] [address] documented as of this encounter Visit Diagnoses Not on filedocumented in this encounter Care Teams Shotweld Operator Relationship Specialty Start Date End Date Marianne Smith MD [address] [place] [address] PCP - General Family Medicine 03/30/21 documented as of this encounter
--- OUTSIDE RECORDS SUMMARY | 2025-06-16 08:24 | XMS_ITS | Encounter Summary ---
Author Organization [employer] Address [address] [facility] [address] [place] [address] Care Team Providers Care Pulmonary Physician Name Role Phone Marianne Smith MD Primary Care Provider [phone] Reason for Visit * Reason Onset Date Comments Durable Medical Equipment 09/29/2022 Encounter Details Date Type Department Care Team ([facility] st Contact Info) Description 09/29/2022 Telephone [facility] [address] [place], [place] [phone] Marianne Smith MD [address] [place], [place] [phone] Durable Medical Equipment Social History Tobacco Use [...] script to be emailed to her at [email or web address] Please contact malena at [phone] documented in this encounter Plan of Treatment Upcoming Encounters Date Type Department Care Team (Late st Contact Info) Description 07/07/2025 2:30 PM EST Office Visit [facility] [address] [place], [place] [phone] Marianne Smith MD [address] [place] [address] documented as of this encounter Visit Diagnoses Not on filedocumented in this encounter Care Teams Pulmonary Physician Relationship Specialty Start Date End Date Marianne Smith MD [address] [place], [place] [phone] PCP - General Family Medicine 03/30/21 documented as of this encounter
== END 2025-06-16 08:08 | disposition home or self-care (01) ==
LOC: HO.HOSX 08:07
DX: M17.0 Bilateral primary osteoarthritis of knee (principal)
CPT/HCPCS: 73562

== ENCOUNTER 2025-06-16 13:20 | Outpatient (AMB) | payer OTHER, SELFPAY ==
[2025-06-16 13:39] VITALS: BMI 29.6
--- NOTE | 2025-06-16 13:39 | MHC.OFFVIS ---
Vital Signs 06/16/25 13:39 Height 5 ft 2 in Weight 162 lb BMI 29.6 Intake Visit Reasons: Newprob-Left knee pain Intake Note: Summer is a 64 year old female who presents today for a New Problem Visit complaining of Left Knee Pain. Patient states her pain began over 1 year ago without any known injuries. She complains of pain all around the knee with a stabbing sensation on the posterior aspect of the knee, radiating up the thigh. She has noticed clicking and giving away. She finds her pain worsens when she uses stairs. She also finds it very painful to bend at the knee. She currently lives on a 5th floor without elevator access. Patient has tried cortisone injections, last done about 4 years ago, without any relief. She has tried Physical Therapy but it only worsened her pain. She has also tried knee braces and gel injections without relief. She gets some relief from diaclofenac gel. History of Bilateral Knee Osteoarthritis. [employer] Software Developer Required: Yes [employer] Software Developer Language: Rental Sales Associate Name: [id number] Marybeth Allergies tramadol Allergy (Severe, Verified 06/16/25 13:40) Anaphylaxis HPI HPI Newprob-Left knee pain: Details: Summer is a 64 year old female who presents today for a New Problem Visit complaining of Left Knee Pain. Patient states her pain began over 1 year ago without any known injuries. She complains of pain all around the knee with a stabbing sensation on the posterior aspect of the knee, radiating up the thigh. She has noticed clicking and giving away. She finds her pain worsens when she uses stairs. She also finds it very painful to bend at the knee. She currently lives on a 5th floor without elevator access. Patient has tried cortisone injections, last done about 4 years ago, without any relief. She has tried Physical Therapy but it only worsened her pain. She has also tried knee braces and gel injections without relief. She gets some relief from diaclofenac gel. History of Bilateral Knee Osteoarthritis. Patient states that she is interested in discussing surgical intervention, namely a knee replacement. [facility] Medical History HTN (hypertension) Depression Back pain DDD (degenerative disc disease), cervical Herpes labialis Hyperlipidemia On beta radha at home Diabetes GERD (gastroesophageal reflux disease) Generalized osteoarthritis Spondylosis of lumbar spine Severe arterial insufficiency of right lower extremity Arterial insufficiency of lower extremity Weakness of both lower extremities Weakness of left lower extremity Chronic pain syndrome Osteoarthritis of left knee Osteoarthritis of knees, bilateral Surgical History Hx of section Hx laparoscopic cholecystectomy Social History Alcohol intake: never Patient Tobacco Use Status: Former Tobacco user Review of Systems Const All systems reviewed & are unremarkable except as noted in HPI and below Physical Exam Vital Signs: BMI result Body Mass Index 29.6 Extrem Other: Patient's left knee edematous to inspection, consistent with joint effusion No erythema, ecchymosis noted No lacerations, abrasions, open areas No evidence of infection Patient reports significant tenderness to palpation of the medial and lateral joint lines, posterior knee No tenderness to palpation of quad tendon, patellar tendon, patella Patient is able to extend to approximately 15 degrees and can flex to approximately 90 degrees, significant discomfort beyond this Positive Janee's Distal sensation intact Capillary refill brisk Results Reviewed Results Reviewed: X-rays obtained in the office today and independently reviewed by me, Saeed Osman PA-C, demonstrate moderate to severe osteoarthritis of bilateral knees, worst on the left. Assessment & Plan Assessment & Plan (1) Osteoarthritis of knees, bilateral: Code(s): M17.0 - Bilateral primary osteoarthritis of knee Category: Medical Plan 1. Bilateral knee osteoarthritis, worst on the left Patient is educated about this condition Patient is educated about the typical recovery course At this time, given the fact that the patient has not had any success with more conservative pain management measures, I feel it is best to refer the patient to a surgeon to discuss potential left total knee replacement Therefore, referral was placed for Dr. Olivas for a surgical consult However, the patient does smoke cigarettes, and she is educated that it is likely she will need to cut back or cease smoking entirely in order to be able to proceed with surgery Patient is also educated that given her arterial insufficiency of her lower extremities, she will likely require vascular clearance prior to any surgery Patient understands this and is amenable to this plan Patient will follow-up for next available surgical consult with Dr. Olivas, sooner with any acute concerns Orders: Orders XR knee LT 3V 06/16/25 M25.562 - Pain in left knee Coding Level of Care Code Est Pt Level 3 (20683) Diagnoses Osteoarthritis of knees, bilateral M17.0
== END 2025-06-16 14:24 | disposition home or self-care (01) ==
LOC: HO.HOS 13:20
PROVIDERS: PCP General Practice
DX: M17.0 Bilateral primary osteoarthritis of knee (principal)
CPT/HCPCS: 99213

== ENCOUNTER → 2025-06-16 13:26 | Outpatient (BNV) | payer OTHER, SELFPAY | PROVIDERS: Visit Provider Radiology Diagnostic Radiology | DX: M17.12 Unilateral primary osteoarthritis, left knee (principal) | CPT/HCPCS: 73562 ==

== ENCOUNTER 2025-07-07 14:32 | Outpatient (REF) | payer OTHER, SELFPAY ==
--- OUTSIDE RECORDS SUMMARY | 2025-07-07 14:30 | XMS_ITS | Encounter Summary ---
Author Organization [employer] [facility] Address [address] [place] [address] Care Team Providers Care Industrial Roof Plumber Name Role Phone Marianne Smith MD Primary Care Provider [phone] Reason for Visit * Reason Comments Follow-up Encounter Details Date Type Department Care Team ([facility] st Contact Info) Description 07/07/2025 2:30 PM EST Office Visit [facility] MEDICINE [address], [place] [phone] Marianne Smith MD [address], [place] [phone] Type 2 diabetes mellitus with other specified complication, without long-term current use of insulin (HCC) (Primary Dx); Screening for colon cancer; Arthritis; Encounter for immunization Social History Tobacco Use Types Packs/Day Years [...] AM EDT documented as of this encounter Last Filed Vital Signs Vital Sign Reading Time Taken Comments Blood Pressure 136/72 07/07/2025 2:21 PM EST Pulse 75 07/07/2025 1:20 PM EST Temperature 36.6 C (97.9 F) 07/07/2025 1:20 PM EST Respiratory Rate 20 07/07/2025 1:20 PM EST Oxygen Saturation 97% 07/07/2025 1:20 PM EST Inhaled Oxygen Concentration - - Weight 73 kg (161 lb) 07/07/2025 1:20 PM EST Height 157.5 cm (5' 2 ) 07/07/2025 1:20 PM EST Body Mass Index 29.45 07/07/2025 1:20 PM EST documented in this encounter Progress Notes * Marianne Smith MD - 07/07/2025 2:30 PM EST SUBJECTIVE: Summer Ariza is a 65 y.o. female who presents for chronic disease management. Denies recent illness, ER visit, or hospitalization. Acute Concerns: Deciding what to do about potential R knee TKA, worried about what rehab and PT after would be like Chronic Conditions and Plans: DM2 A1C 7.1 Glucose 118 takes Metformin 500mg in the AM and 1000mg in the PM ABIGAIL 06/08/23 no ocular complications 07/18/24 podiatry consult, Dr Begum fmily history of poor outcomes due to DM2, she is concerned about this for herself eating healthfully HTN taking Lisinopril 40mg, Metoprolol 25mg XR, HCTZ 12.5mg and additional dose if still high controlled at home 01/01/25 Dr Flannery- thinks chest pain is costochondritis Headaches, chronic, presumed tension in band-like distribution around her head. Went to ER 01/08/25 at [facility], seen for DELATORRE, thought to be due to neck OA. She had normal kidney and liver function at that time. Bilateral hand pain, cannot cook and things fall from her hands. Having trouble preparing food and bathing herself. Referred to Dr. Rice for possible CTS release 05/07/25 EMG neg in UE Leg pain, severe and limited her ability to leave her house this summer has Diclofenac gel at home, as well as Tylenol and Gabapentin. Will add Naproxen to meds available. 03/05/25 venous mapping with minimal reflux Teeth falling out Had several teeth removed in January 2024, eating soft and blended foods Top dentures are in place L knee OA/leg pain Has been strong this summer She would like a knee brace for this, has seen neurology, cards, and ortho for it 06/20/25 Dr Olivas knee OA-- will consider 06/2021 LEFT KNEE: The lateral joint space compartment is well-maintained and shows mild peripheral osteophyte formation. There is marked narrowing of the medial and patellofemoral joint space compartments, with peripheral osteophyte formation. No fracture or dislocation is seen. There is a very small left knee joint effusion. No foreign body is seen. IMPRESSION: 1. There is tricompartment osteoarthritic change, most pronounced of the left knee medial and patellofemoral joint space compartment. 2. No fracture or dislocation is seen. 3. There is a very small left knee joint effusion. GERD Failed Omeprazole and Famotidine as controller medications Will trial Nexium Health maintenance: Mammo Birads 1, 06/2023 at [facility] Pap 06/2021 neg/HPV neg; DUE 07/2026 Lung cancer- not applicable Colon cancer- went to pre-op 01/2022, noshowed appointment. Would do Cologuard (ordered 07/07/2025) DEXA- at age 66 Patient Active Problem List Diagnosis Date Noted Arthritis 07/07/2025 Varicose veins of leg with swelling, bilateral 04/25/2025 Type II diabetes mellitus with peripheral circulatory disorder (HCC) 08/27/2024 Diabetic polyneuropathy associated with type 2 diabetes mellitus (HCC) 04/17/2024 Screening for colon cancer 11/07/2023 Degeneration of cervical intervertebral disc 07/29/2022 Gastroesophageal reflux disease without esophagitis 07/29/2022 Hypertensive disorder 07/29/2022 Spondylosis 07/29/2022 Osteoarthritis of knee 06/11/2021 Type 2 diabetes mellitus (HCC) 06/11/2021 Backache 10/03/2014 Depressive disorder 10/03/2014 Herpes labialis 09/18/2013 Gastritis 03/21/2013 Hyperlipidemia 12/07/2012 Surgical History[1] Social History Social History Narrative Lives alone unemployed Review of Systems Respiratory: Negative. Cardiovascular: Negative. Gastrointestinal: Negative. Musculoskeletal: Positive for arthralgias. Skin: Negative. Neurological: Negative. Psychiatric/Behavioral: Negative. OBJECTIVE: Vitals: 07/07/25 1320 07/07/25 1421 BP: (!) 140/80 136/72 BP Location: Left arm Patient Position: Sitting BP Cuff Size: Large adult Pulse: 75 Resp: 20 Temp: 97.9 ??F (36.6 ??C) TempSrc: Oral SpO2: 97% Weight: 161 lb (73 kg) Height: 5' 2 (1.575 m) Physical Exam Vitals reviewed. Constitutional: Appearance: Normal appearance. HENT: Head: Normocephalic and atraumatic. Cardiovascular: Rate and Rhythm: Normal rate and regular rhythm. Pulses: Normal pulses. Heart sounds: Normal heart sounds. Pulmonary: Effort: Pulmonary effort is normal. Breath sounds: Normal breath sounds. Skin: General: Skin is warm and dry. Neurological: General: No focal deficit present. Mental Status: She is alert and oriented to person, place, and time. Psychiatric: Mood and Affect: Mood normal. Behavior: Behavior normal. ASSESSMENT/PLAN Problem List Items Addressed This Visit Type 2 diabetes mellitus (HCC) - Primary Relevant Orders POCT Glucose (Completed) POCT Hgb A1c (Completed) Comprehensive Metabolic Panel Lipid Panel, Standard Albumin, Random Urine W/Creatinine Screening for colon cancer Relevant Medications Magnesium Oxide -Mg Supplement 400 MG capsule Other Relevant Orders Cologuard?? colon cancer screening Arthritis Relevant Medications Diclofenac Sodium 1 % gel acetaminophen (Tylenol Extra Strength) 500 MG tablet Other Visit Diagnoses Encounter for immunization Relevant Medications acetaminophen (Tylenol Extra Strength) 500 MG tablet Other Relevant Orders FLU VACCINE TRIVALENT [id number] (Fluarix) 19 yrs + (Completed) Follow Up: 4 months or sooner prn Allergies[2] Current Medications[3] Occitan Translation: Provided by [facility] staff member ANDREAS Merrill [1] History reviewed. No pertinent surgical history. [2] Allergies Allergen Reactions Tramadol [3] Current Outpatient Medications: Magnesium Oxide -Mg Supplement 400 MG capsule, TAKE 1 CAPSULE BY MOUTH EVERY DAY AT BEDTIME TO PREVENT HEADACHE, Disp: , Rfl: acetaminophen (Tylenol Extra Strength) 500 MG tablet, Take 1 tablet (500 mg) by mouth every 6 (six)hours if needed for mild pain., Disp: 60 tablet, Rfl: 3 Blood Glucose Monitoring Suppl (FreeStyle Lite) w/Device kit, Inject 1 kit into the skin Once per day. Use as directed, Disp: 1 kit, Rfl: 0 Blood Pressure Monitoring (Blood Pressure Cuff) misc, 1 each in the morning., Disp: 1 each, Rfl: 0 capsaicin (Capzasin-HP) 0.1 % cream, APPLY A THIN LAYER FOUR TIMES DAILY FOR PAIN, Disp: 42.5 g, Rfl: 3 Continuous Blood Gluc Sensor (Dexcom G7 Sensor) misc, 1 each 3 times daily., Disp: 1 each, Rfl: 0 cyclobenzaprine (Flexeril) 5 MG tablet, TAKE 1 TABLET BY MOUTH TWICE DAILY NEEDED FOR MUSCLE SPASMS, Disp: 40 tablet, Rfl: 1 Diclofenac Sodium 1 % gel, APPLY 2 GRAMS TO AFFECTED AREA(S) FOUR TIMES DAILY, Disp: 100 g, Rfl: 6 gabapentin (Neurontin) 300 MG capsule, Take 300 mg by mouth in the morning., Disp: , Rfl: glucose blood (FREESTYLE LITE) test strip, USE DIRECTED TO TEST BLOOD SUGAR THREE TIMES DAILY, Disp: 100 strip, Rfl: 11 hydroCHLOROthiazide 12.5 MG tablet, TAKE 1 TABLET BY MOUTH EVERY DAY IN THE MORNING IF BP>140/90, REPEAT ONCE IN 6 HOURS IF BLOOD PRESSURE > 140 / 90, Disp: 180 tablet, Rfl: 3 hydrOXYzine pamoate (Vistaril) 25 MG capsule, TAKE 1 CAPSULE BY MOUTH EVERY 8 HOURS NEEDED FOR ANXIETY, Disp: 90 capsule, Rfl: 3 lidocaine (Lidoderm) 5 % patch, Apply 1 patch topically Once per day. Remove & discard patch within 12 hours or as directed by MD., Disp: 30 patch, Rfl: 6 lisinopril 40 MG tablet, TAKE 1 TABLET BY MOUTH EVERY DAY, Disp: 90 tablet, Rfl: 3 Magnesium 400 MG capsule, Take 400 mg by mouth at bedtime. To prevent headaches, Disp: 90 capsule, Rfl: 3 metFORMIN (Glucophage) 500 MG tablet, TAKE 2 TABLETS BY MOUTH TWICE DAILY IN THE MORNING AND EVENING WITH MEALS, Disp: 360 tablet, Rfl: 3 metoprolol succinate XL (Toprol-XL) 25 MG 24 hr tablet, TAKE 1 TABLET BY MOUTH EVERY DAY, Disp: 90 tablet, Rfl: 3 naproxen sodium (Aleve) 220 MG tablet, Take 1 tablet (220 mg) by mouth if needed in the morning andat bedtime for mild pain., Disp: 60 tablet, Rfl: 3 pantoprazole (ProtoNix) 20 MG EC tablet, TAKE 1 TABLET BY MOUTH EVERY DAY BEFORE BREAKFAST FOR HEARTBURN, Disp: 90 tablet, Rfl: 3 traZODone (Desyrel) 50 MG tablet, TAKE 1 TO 2 TABLETS BY MOUTH AT BEDTIME NEEDED FOR SLEEP, Disp: 90 tablet, Rfl: 3 TRUEplus Lancets 33G misc, TEST BLOOD SUGAR 3 TIMES A DAY, Disp: 100 each, Rfl: 11 documented in this encounter Plan of Treatment Scheduled Orders Name Type Priority Associated Diagnoses Orde r Schedule Cologuard colon cancer screening Lab Routine Screening for colon cancer Ordered: 07/07/2025 documented as of this encounter Goals Goal Patient Goal Type Associated Problems Recent Progress Patient-Stated? Author Help patients manage their type 2 diabetes Care Plan Help patients manage their type 2 diabetes Shobha Saba Weekly blood pressure task Care Plan Weekly blood pressure task Shobha Saba Help patients manage their type 2 diabetes Care Plan Help patients manage their type 2 diabetes Shobha Saba Patient has chronic kidney disease Care Plan Patient has chronic kidney disease Shobha Saba Help patients manage their type 2 diabetes Care Plan Help patients manage their type 2 diabetes Shobha Saba Patient has diabetic neuropathy Care Plan Patient has diabetic neuropathy Shobha Saba Weekly blood pressure task Care Plan Weekly blood pressure task No Shobha Allen Weekly blood pressure task Care Plan Weekly blood pressure task No Shobha Allen Patient has chronic kidney disease Care Plan Patient has chronic kidney disease No Shobha Allen Patient has chronic kidney disease Care Plan Patient has chronic kidney disease No Shobha Allen Patient has diabetic neuropathy Care Plan Patient has diabetic neuropathy No Shobha Allen Patient has diabetic neuropathy Care Plan Patient has diabetic neuropathy No Shobha Allen Weekly blood pressure task Care Plan Weekly blood pressure task No Marianne Smith MD Weekly blood pressure task Care Plan Weekly blood pressure task No Marianne Smith MD Weekly blood pressure task Care Plan Weekly blood pressure task No Marianne Smith MD Patient has chronic kidney disease Care Plan Patient has chronic kidney disease No Marianne Smith MD Patient has chronic kidney disease Care Plan Patient has chronic kidney disease No Marianne Smith MD Patient has chronic kidney disease Care Plan Patient has chronic kidney disease No Marianne Smith MD Patient has diabetic neuropathy Care Plan Patient has diabetic neuropathy No Marianne Smith MD Patient has diabetic neuropathy Care Plan Patient has diabetic neuropathy No Marianne Smith MD Patient has diabetic neuropathy Care Plan Patient has diabetic neuropathy No Marianne Smith MD documented as of this encounter Procedures Procedure Name Priority Date/Time Associated Diagnosis Comments ALBUMIN, RANDOM URINE W/CREATININE Routine 07/07/2025 2:55 PM EST Type 2 diabetes mellitus with other specified complication, without long-term current use of insulin (HCC) LIPID PANEL, STANDARD Routine 07/07/2025 2:55 PM EST Type 2 diabetes mellitus with other specified complication, without long-term current use of insulin (HCC) COMPREHENSIVE METABOLIC PANEL Routine 07/07/2025 2:55 PM EST Type 2 diabetes mellitus with other specified complication, without long-term current use of insulin (HCC) POCT GLYCATED HEMOGLOBIN, TOTAL Routine 07/07/2025 1:52 PM EST Type 2 diabetes mellitus with other specified complication, without long-term current use of insulin (HCC) POCT GLUCOSE Routine 07/07/2025 1:21 PM EST Type 2 diabetes mellitus with other specified complication, without long-term current use of insulin (HCC) documented in this encounter Results * Albumin, Random Urine W/Creatinine (07/07/2025 2:55 PM EST) Creatinine, Urine 44.50 mg/dL [facility] Microalbumin Urine <5.0 mg/L [facility] Microalbum Creatinine Ratio Ur TNP <30 ug/mg cr [facility] Comment:Unable to calculate albumin/creatinine ratio due to lowmicroalbumin or creatinine result. Urine (Urine, Random) 07/07/2025 2:55 PM EST 07/07/2025 4:05 PM EST us Marianne Smith MD LAB URINE ORDERABLES Final Res ult [facility] [address] [place] [phone] * (ABNORMAL) Lipid Panel, Standard (07/07/2025 2:55 PM EST) Triglycerides 446(H) <150 mg/dL [facility] Comment:Slight Lipemia.Robby able Triglyceride: less than 150 mg/dLBorderline High Triglyceride 150-199 mg/dLHigh Triglyceride: 200-499 mg/dLVery High Triglyceride: greater than or equal to 5OO mg/dL Cholesterol 199 <200 mg/dL [facility] Comment:Desirable Cholestero l: less than 200 mg/dLBorderline High Cholesterol: 200-239 mg/dLHigh Cholesterol: greater than 239 mg/dL LDL Cholesterol Calculated TNP <100 mg/dL [facility] Comment:Unable to calculate the LDL. The formula of Friedwald,Christopher, and Adeola is only valid if the triglycerides areless than 400 mg/dl. HDL Cholesterol 38(L) >40 mg/dL [facility] Comment:Desirable HDL: great er than 40 mg/dL Note: This HDL assay may give artificially low results in patients with liver disease. Blood Venous blood specimen / Unknown 07/07/2025 2:55 PM EST 07/07/2025 4:15 PM EST Marianne Smith MD LAB BLOOD ORDERABLES Final Res ult Performing Organization Address City/[facility]/ZIP Co de Phone Number [facility] [address] [place] [phone] * (ABNORMAL) Comprehensive Metabolic Panel (07/07/2025 2:55 PM EST) Sodium 141 135 - 145 mmol/L [facility] Potassium 4.6 3.3 - 5.1 mmol/L [facility] Chloride 105 96 - 108 mmol/L [facility] Carbon Dioxide 29 22 - 29 mmol/L [facility] Anion Gap 12 12 - 20 [facility] Urea Nitrogen (BUN) 14 9 - 16 mg/dL [facility] Creatinine, Serum 0.65 0.5 - 1.4 mg/dL [facility] Estimated Glomerular Filt Rate >60 [facility] Comment:Chronic Kidney Disea se: Estimated GFR < 60 mL/min/1.85k6Okncyd Kidney Disease: Estimated GFR < 15 mL/min/1.73m2 Glucose 115 60 - 115 mg/dL [facility] Calcium 10.1 8.4 - 10.2 mg/dL [facility] Bilirubin, Total 0.6 0.0 - 1.0 mg/dL [facility] Aspartate Amino Transferase 25 5 - 31 U/L [facility] Alanine Aminotransferase 39(H) 0 - 31 U/L [facility] Total Protein 7.5 6.5 - 8.0 g/dL [facility] Albumin Level 4.7 3.5 - 5.0 g/dL [facility] Alkaline Phosphatase 133(H) 39 - 117 U/L [facility] Blood Venous blood specimen / Unknown 07/07/2025 2:55 PM EST 07/07/2025 4:15 PM EST Marianne Smith MD LAB BLOOD ORDERABLES Final Res ult [facility] [address] [place] [phone] * (ABNORMAL) POCT Hgb A1c (07/07/2025 1:52 PM EST) Hemoglobin A1C 7.1(A) 4.0 - 5.7 % QC Media Lot # [id number] Lot# Expiration Date 52,327 Blood 07/07/2025 1:52 PM EST Marianne Smith MD POINT OF CARE TEST ENTER/EDIT ORDERABLES Final Result * POCT Glucose (07/07/2025 1:21 PM EST) Glucose Blood, POC 126 60 - 200 mg/dL [employer] Lot # [id number] Lot# Expiration Date 31,126 Blood Capillary blood specimen / Unknown 07/07/2025 1:21 PM EST Marianne Smith MD POINT OF CARE TEST ENTER/EDIT ORDERABLES Final Result documented in this encounter Visit Diagnoses Diagnosis Type 2 diabetes mellitus with other specified complication, without long-term current use of insulin (HCC)- Primary Screening for colon cancer Special screening for malignant neoplasms, colon Arthritis Unspecified arthropathy, site unspecified Encounter for immunization documented in this encounter Additional Health Concerns Active Problems Noted Date Diagnosed Date Help patients manage their type 2 diabetes 06/24 Weekly blood pressure task 06/24/2025 Help patients manage their type 2 diabetes 06/24 Patient has chronic kidney disease 06/24/2025 Help patients manage their type 2 diabetes 06/24 Patient has diabetic neuropathy 06/24/2025 Weekly blood pressure task 06/24/2025 Weekly blood pressure task 06/24/2025 Patient has chronic kidney disease 06/24/2025 Patient has chronic kidney disease 06/24/2025 Patient has diabetic neuropathy 06/24/2025 Patient has diabetic neuropathy 06/24/2025 Weekly blood pressure task 07/06/2025 Weekly blood pressure task 07/06/2025 Weekly blood pressure task 07/06/2025 Patient has chronic kidney disease 07/06/2025 Patient has chronic kidney disease 07/06/2025 Patient has chronic kidney disease 07/06/2025 Patient has diabetic neuropathy 07/06/2025 Patient has diabetic neuropathy 07/06/2025 Patient has diabetic neuropathy 07/06/2025 Assessment Noted Time PHQ-9 Depression Total Score: 6 08/27/19 25 11:30 AM EST documented as of this encounter Care Teams Industrial Roof Plumber Relationship Specialty Start Date End Date Marianne Smith MD [address] [place] [phone] PCP - General Family Medicine 03/30/21 documented as of this encounter
[2025-07-07 16:20] LABS: MANUAL DIFF FLAG NO
[2025-07-07 16:26] LABS: Appearance Urine Clear; Glucose Urine UA Negative (Negative); PH 5.5 (5.0-9.0); Specific Gravity - Urine 1.010 (1.005-1.025); UMIC TRIGGER UACC YES
[2025-07-07 16:28] LABS: Hematocrit 46.3 % (37.0-47.0); Hemoglobin 15.6 g/dl (12.0-16.0); Imm Gran Abs Auto 0.06 X10*3/uL (0.00-0.03); Imm Gran Pct Auto 0.5 % (0.0-0.4); Lymphocytes Absolute Auto 4.4 X10*3/uL (1.2-4.9); Mean Corpuscular HGB Conc 33.7 g/dl (31.0-35.0); Mean Corpuscular Hemoglobin 31.8 pg (27.0-33.0); Mean Corpuscular Volume 94.3 fL (80.0-98.0); NRBC Abs Auto 0.000 X10*3/uL (0.0-0.012); NRBC Pct Auto 0.0 /100WBC (0.0-0.2); Platelet Count 321 X10*3/uL (160-400); Red Blood Count 4.91 X10*6/uL (4.20-5.50); White Blood Count 11.7 X10*3/uL (4.8-10.8)
[2025-07-07 16:43] LABS: UACC Culture Trigger YES
[2025-07-07 16:47] LABS: Alanine Aminotransferase 39 U/L (0-31); Albumin Level 4.7 g/dL (3.5-5.0); Alkaline Phosphatase 133 U/L (39-117); Anion Gap 12 (12-20); Aspartate Amino Transferase 25 U/L (5-31); Blood Urea Nitrogen 14 mg/dL (9-16); Calcium 10.1 mg/dL (8.4-10.2); Carbon Dioxide 29 mmol/L (22-29); Chloride 105 mmol/L (96-108); Cholesterol 199 mg/dL (<200); Estimated Glomerular Filt Rate > 60; HDL Cholesterol 38 mg/dL (>40); Potassium 4.6 mmol/L (3.3-5.1); Sodium 141 mmol/L (135-145); Total Protein 7.5 g/dL (6.5-8.0); Triglycerides 446 mg/dL (<150)
--- OUTSIDE RECORDS SUMMARY | 2025-07-07 17:49 | XMS_ITS | Encounter Summary ---
Author Organization [employer] Address [address] [place] [address] Care Team Providers Care Dedicated Truck Driver Name Role Phone Marianne Smith MD Primary Care Provider [phone] Encounter Details Date Type Department Care Team (Late st Contact Info) Description 02/21/2025 Orders Only [facility] [address] [place], [place] [phone] Marianne Smith MD [address] [place], [place] [phone] Social History Tobacco Use Types Packs/Day Years [...] documented as of this encounter Care Teams Dedicated Truck Driver Relationship Specialty Start Date End Date Marianne Smith MD [address] [place] [address] PCP - General Family Medicine 03/30/21 documented as of this encounter
--- OUTSIDE RECORDS SUMMARY | 2025-07-07 17:49 | XMS_ITS | Encounter Summary ---
Author Organization [employer] [facility] Address [address] [place] [address] Care Team Providers Care Media Technician Name Role Phone Marianne Smith MD Primary Care Provider [phone] Reason for Visit * Reason Comments Med Refill Encounter Details Date Type Department Care Team ([facility] st Contact Info) Description 01/30/2023 Refill [facility] [address] [place], [place] [phone] Marianne Smith MD [address] [place], [place] [phone] Social History Tobacco Use Types Packs/Day Years [...] on filedocumented in this encounter Care Teams Media Technician Relationship Specialty Start Date End Date Marianne Smith MD [address] [place] [address] [phone] PCP - General Family Medicine 03/30/21 documented as of this encounter
--- OUTSIDE RECORDS SUMMARY | 2025-07-07 17:49 | XMS_ITS | Encounter Summary ---
Author Organization [employer] Address [address] [place] [address] Care Team Providers Care Script Girl Name Role Phone Marianne Smith MD Primary Care Provider [phone] Reason for Visit * Reason Comments Med Refill Encounter Details Date Type Department Care Team ([facility] st Contact Info) Description 04/10/2025 Refill [facility] [address] [place], [place] [phone] Marianne Smith MD [address] [place], [place] [phone] Arthritis Social History Tobacco Use Types Packs/Day [...] documented as of this encounter Care Teams Script Girl Relationship Specialty Start Date End Date Marianne Smith MD [address] [place] [phone] PCP - General Family Medicine 03/30/21 documented as of this encounter
--- OUTSIDE RECORDS SUMMARY | 2025-07-07 17:49 | XMS_ITS | Encounter Summary ---
Demographics Address [address] [place] [address] Mobile Phone Work Phone Home Phone Preferred Language es Marital Status Single Voodoo Affiliation Unknown Race Other Race Ethnic Group Unknown Author Organization [employer] [facility] Address [address] [place] [address] Care Team Providers Care Academic Manager Name Role Phone Marianne Smith MD Primary Care Provider [phone] Encounter Details Date Type Department Care Team (Late st Contact Info) Description 11/30/2022 Orders Only [facility] MED[facility]INE [address] [place], [place] [phone] Marianne Smith MD [address] [place], [place] [phone] Vertigo (Primary Dx) Social History Tobacco Use [...] giddiness documented in this encounter Care Teams Academic Manager Relationship Specialty Start Date End Date Marianne Smith MD [address] [place], [place] [phone] PCP - General Family Medicine 03/30/21 documented as of this encounter
--- OUTSIDE RECORDS SUMMARY | 2025-07-07 17:49 | XMS_ITS | Encounter Summary ---
Author Organization [employer] Address [address] [place] [address] Care Team Providers Care Warping Machine Operator Name Role Phone Marianne Smith MD Primary Care Provider [phone] Reason for Visit * Reason Onset Date Comments Med Refill 06/10/2024 Encounter Details Date Type Department Care Team ([facility] st Contact Info) Description 06/10/2024 Telephone [facility] MED[facility]INE [address] [place], [place] [phone] Marianne Smith MD [address] [place], [place] [phone] Med Refill Social History Tobacco Use Types Packs/Day Years Used Date Smoking Tobacco: Some Days Cigarettes Passive Smoke Exposure: Past Smokeless Tobacco: Never Alcohol Use Standard Drinks/Week Comments Never 0 (1 standard drink = 0.6 oz pur e alcohol) Housing Stability Answer Date Recorded What is your housing situation today? I have waialonso ivey 10/30/[address] you [...] 24 hr tablet To be sent to: [facility] [place], [place] - [address] [facility] documented in this encounter Plan of Treatment Not on file documented as of this encounter Visit Diagnoses Not on filedocumented in this encounter Care Teams Warping Machine Operator Relationship Specialty Start Date End Date Marianne Smith MD [address] [place] [address] PCP - General Family Medicine 03/30/21 documented as of this encounter
--- OUTSIDE RECORDS SUMMARY | 2025-07-07 17:49 | XMS_ITS | Encounter Summary ---
Demographics Address [address] [place] [address] Mobile Phone Work Phone Home Phone Preferred Language es Marital Status Single Lutheran Affiliation Unknown Race Other Race Ethnic Group Unknown Author Organization [employer] Address [address] [place] [address] Care Team Providers Care Collections Assistant Name Role Phone Marianne Smith MD Primary Care Provider [phone] Reason for Visit * Reason Comments Med Refill Encounter Details Date Type Department Care Team ([facility] st Contact Info) Description 06/02/2023 Refill [facility] MEDICINE [address] [place], [place] [phone] Marianne Smith MD [address] [place], [place] [phone] Social History Tobacco Use Types Packs/Day Years [...] on filedocumented in this encounter Care Teams Collections Assistant Relationship Specialty Start Date End Date Marianne Smith MD [address] [place] [address] PCP - General Family Medicine 03/30/21 documented as of this encounter
--- OUTSIDE RECORDS SUMMARY | 2025-07-07 17:49 | XMS_ITS | Encounter Summary ---
Author Organization [employer] Address [address] [place] [address] Care Team Providers Care Meter/Relay Craftsman Name Role Phone Marianne Smith MD Primary Care Provider [phone] Encounter Details Date Type Department Care Team (Latest Contact Info) Description 07/07/2025 Travel Social History Tobacco Use Types Packs/Day Years [...] on file documented as of this encounter Goals Goal Patient Goal Type Associated Problems Recent Progress Patient-Stated? Author Help patients manage their type 2 diabetes Care Plan Help patients manage their type 2 diabetes No Shobha Allen Weekly blood pressure task Care Plan Weekly blood pressure task No Shobha Allen Help patients manage their type 2 diabetes Care Plan Help patients manage their type 2 diabetes No Shobha Allen Patient has chronic kidney disease Care Plan Patient has chronic kidney disease No Shobha Allen Help patients manage their type 2 diabetes Care Plan Help patients manage their type 2 diabetes No Shobha Allen Patient has diabetic neuropathy [...] Smith MD documented as of this encounter Visit Diagnoses Not on filedocumented in this encounter Additional Health Concerns Active [...] documented as of this encounter Care Teams Meter/Relay Craftsman Relationship Specialty Start Date End Date Marianne Smith MD [address] [place] [address] PCP - General Family Medicine 03/30/21 documented as of this encounter
--- OUTSIDE RECORDS SUMMARY | 2025-07-07 17:49 | XMS_ITS | Encounter Summary ---
Demographics Address [address] [place] [address] Mobile Phone Work Phone Home Phone Preferred Language es Marital Status Single Latter-Day Affiliation Unknown Race Other Race Ethnic Group Unknown Author Organization [employer] Address [address] [place] [address] Care Team Providers Care [employer] Assistant Manager Name Role Phone Marianne Smith MD Primary Care Provider [phone] Reason for Visit * Reason Comments Med Refill Encounter Details Date Type Department Care Team ([facility] st Contact Info) Description 09/12/2023 Refill [facility] MED[facility]INE [address] [place], [place] [phone] Mindi Alarcon DO [address] [place], [place] [phone] Social History Tobacco Use Types Packs/Day Years [...] on filedocumented in this encounter Care Teams [employer] Assistant Manager Relationship Specialty Start Date End Date Marianne Smith MD [address] [place] [address] PCP - General Family Medicine 03/30/21 documented as of this encounter
--- OUTSIDE RECORDS SUMMARY | 2025-07-07 17:49 | XMS_ITS | Encounter Summary ---
Author Organization [employer] [facility] Address [address] [place] [address] Care Team Providers Care Agriculture Department Chair Name Role Phone Marianne Smith MD Primary Care Provider [phone] Reason for Visit * Reason Comments Med Refill Encounter Details Date Type Department Care Team (Late st Contact Info) Description 03/16/2023 Refill [facility] [address] [place], [place] [phone] Marianne Smith MD [address] [place], [place] [phone] Arthritis Social History Tobacco Use Types Packs/Day [...] unspecified documented in this encounter Care Teams Agriculture Department Chair Relationship Specialty Start Date End Date Marianne Smith MD [address] [place], [place] [phone] PCP - General Family Medicine 03/30/21 documented as of this encounter
--- OUTSIDE RECORDS SUMMARY | 2025-07-07 17:50 | XMS_ITS | Encounter Summary ---
Author Organization [employer] Address [address] [place] [address] Care Team Providers Care Extractor And Wringer Operator Name Role Phone Marianne Smith MD Primary Care Provider [phone] Reason for Visit * Reason Comments Med Refill Encounter Details Date Type Department Care Team ([facility] st Contact Info) Description 10/31/2024 Refill [facility] MED[facility]INE [address] [place], [place] [phone] Catherine Amor ANP [address] [place], [place] [phone] Type 2 diabetes mellitus with other specified complication, unspecified whether longterm insulin use ([facility]) Social History Tobacco Use Types Packs/Day Years [...] mellitus with other specified complication, unspecified whether longterm insulin use (HCC) documented in this encounter Additional Health Concerns Assessment Noted Time PHQ-9 Depression Total Score: 6 08/27/19 25 11:30 AM EST documented as of this encounter Care Teams Extractor And Wringer Operator Relationship Specialty Start Date End Date Marianne Smith MD [address] [place] [address] PCP - General Family Medicine 03/30/21 documented as of this encounter
--- OUTSIDE RECORDS SUMMARY | 2025-07-07 17:50 | XMS_ITS | Encounter Summary ---
Author Organization [employer] [facility] Address [address] [place] [address] Care Team Providers Care Railway Track Plant Operator Name Role Phone Marianne Smith MD Primary Care Provider [phone] Encounter Details Date Type Department Care Team (Late st Contact Info) Description 10/05/2022 Orders Only [facility] MEDICINE [address] [place], [place] [phone] Marianne Smith MD [address] [place], [place] [phone] Primary hypertension (Primary Dx) Social History Tobacco [...] hypertension documented in this encounter Care Teams Railway Track Plant Operator Relationship Specialty Start Date End Date Marianne Smith MD [address] [place], [place] [phone] PCP - General Family Medicine 03/30/21 documented as of this encounter
--- OUTSIDE RECORDS SUMMARY | 2025-07-07 17:50 | XMS_ITS | Encounter Summary ---
Author Organization [employer] [facility] Address [address] 7[address] [place] [address] Care Team Providers Care Icing Machine Operator Name Role Phone Marianne Smith MD Primary Care Provider [phone] Reason for Visit * Reason Comments Med Refill Encounter Details Date Type Department Care Team (Late st Contact Info) Description 09/02/2022 Refill [facility] [address] [place], [place] [phone] Marianne Smith MD [address] [place], [place] [phone] Social History Tobacco Use Types Packs/Day Years [...] on filedocumented in this encounter Care Teams Icing Machine Operator Relationship Specialty Start Date End Date Marianne Smith MD [address] [place] [id number] PCP - General Family Medicine 03/30/21 documented as of this encounter
--- OUTSIDE RECORDS SUMMARY | 2025-07-07 17:50 | XMS_ITS | Encounter Summary ---
Author Organization [employer] Address [address] [place] [address] Care Team Providers Care Scene And Lighting Design Lecturer Name Role Phone Marianne Smith MD Primary Care Provider [phone] Encounter Details Date Type Department Care Team (Late st Contact Info) Description 07/20/2022 Orders Only [facility] [address] [place] [address] Mindi Osei LPN Social History Tobacco Use [...] on filedocumented in this encounter Care Teams Scene And Lighting Design Lecturer Relationship Specialty Start Date End Date Marianne Smith MD [address] [place] [address] PCP - General Family Medicine 03/30/21 documented as of this encounter
--- OUTSIDE RECORDS SUMMARY | 2025-07-07 17:50 | XMS_ITS | Clinical Summary ---
Author Organization [address] [facility] Address [address] [place] [address] Phone Care Team Providers Care Rehab Physician Name Role Phone Marianne Smith MD Primary Care Provider Allergies Active Allergy Reactions Criticality Noted Date [...] PM EDT Office Visit [facility] [place] [address] [place] [address] Emiliana Herrera MD Varicose veins [...] patient's age to complete this topic Insurance [facility] MEDICARE Member Subscriber Plan / Payer (Ef fective 2022-Present) Name:EDELMIRA RODRIGUEZ Relation to Subscriber:Self Name:Edelmira Boland Payer ID:[id number] Group ID:[id number] Type:Not on file Address: [address] [facility] [place] [id number] Care Teams Rehab Physician Relationship Specialty Start Date End Date Marianne Smith MD [address] [place] [address] PCP - General 04/23/24
--- OUTSIDE RECORDS SUMMARY | 2025-07-07 17:50 | XMS_ITS | Clinical Summary ---
Author Organization [employer] [facility] Address [address] [facility] 7[address] [place] [address] Care Team Providers Care Retail Center Receptionist Name Role Phone Marianne Smith MD Primary Care Provider [phone] Allergies Active Allergy Reactions Criticality Noted Date [...] . 30 patch 6 04/17/20 24 Active cyclobenzaprine (Flexeril) 5 MG tablet TAKE 1 TABLET BY MOUTH TWICE DAILY NEEDED FOR MUSCLE SPASMS 40 tablet 1 09/20/19 25 Active Blood Glucose Monitoring Suppl (FreeStyle Lite) w/Device kitIndications:Ty pe 2 diabetes mellitus with other specified complication, unspecified whether extermination inspector insulin use (HCC) Inject 1 kit into the skin Once per day. Use as directed 1 kit 11/01/19 25 Active metFORMIN (Glucophage) 500 MG tablet TAKE 2 TABLETS BY MOUTH TWICE DAILY IN THE MORNING AND EVENING WITH MEALS 360 tablet 3 5 3:37 PM EST 11/19/19 25 Active hydroCHLOROthiazi de 12.5 MG tablet [...] bedtime for mild pain. 60 tablet 3 5 12:20 PM EST 02/22/20 25 2025 Active Magnesium 400 MG capsuleIndication s:Tension headache Take 400 mg by mouth at bedtime. To prevent headaches 90 capsule 3 03/11/20 25 Active capsaicin (Capzasin-HP) 0.1 % creamIndications: Primary osteoarthritis of left knee APPLY A THIN LAYER FOUR TIMES DAILY FOR PAIN 42.5 g 3 5 3:37 PM EST 04/28/20 25 Active metoprolol succinate XL (Toprol-XL) [...] BEFORE BREAKFAST FOR HEARTBURN 90 tablet 3 5 3:37 PM EST 06/13/20 25 Active lisinopril 40 MG tabletIndications :Essential hypertension TAKE 1 TABLET BY MOUTH EVERY DAY 90 tablet 3 5 12:20 PM EST 07/01/20 25 Active glucose blood (FREESTYLE LITE) test stripIndications: Type 2 diabetes mellitus with other specified complication, without long-term current use of insulin (HCC) USE DIRECTED TO TEST BLOOD SUGAR THREE TIMES DAILY 100 strip 11 5 12:20 PM EST 07/01/20 25 Active Magnesium Oxide -Mg Supplement 400 MG capsule TAKE 1 CAPSULE BY MOUTH EVERY DAY AT BEDTIME TO PREVENT HEADACHE 06/23/20 Active Diclofenac Sodium 1 % gelIndications:Ar thritis APPLY 2 GRAMS TO AFFECTED AREA(S) FOUR TIMES DAILY 100 g 6 07/07/20 Active acetaminophen (Tylenol Extra Strength) 500 MG tablet Take 1 tablet (500 mg) by mouth every 6 (six) hours if needed for mild pain. 60 tablet 3 07/07/20 25 2025 Active pantoprazole (Protonix) 20 MG EC tabletIndications :Gastroesophageal reflux disease without esophagitis Take 1 tablet (20 mg) by mouth before breakfast. For heartburn 90 tablet 3 04/17/20 24 2024 Discontinued FREESTYLE LITE test stripIndications: Type 2 diabetes mellitus with other specified complication, without long-term current use of insulin (HCC) USE TO TEST BLOOD SUGAR THREE TIMES DAILY 100 strip 11 07/01/20 24 2024 Discontinued lisinopril 40 MG tabletIndications :Essential hypertension TAKE 1 TABLET BY MOUTH EVERY DAY 90 tablet 3 07/08/20 24 2024 Discontinued traZODone (Desyrel) 50 MG tabletIndications :Primary insomnia TAKE 1 TO 2 TABLETS BY MOUTH EVERY DAY AT BEDTIME NEEDED FOR SLEEP 90 tablet 3 11/30/19 25 2024 Discontinued Diclofenac Sodium 1 % gelIndications:Ar thritis APPLY 2 GRAMS TO AFFECTED AREA(S) FOUR TIMES DAILY 100 g 6 12/26/19 25 2024 Discontinued(R eorder (will not trigger notification to Pharmacy)) Active Problems Problem Noted Date Diagnosed Date Arthritis 07/07/2025 Varicose veins of leg with swelling, bilateral 0 04/25/2025 Type II diabetes mellitus wi th peripheral circulatory disorder 08/27/2024 Diabetic polyneuropathy asso ciated with type 2 diabetes mellitus 04/17/2024 Screening for colon cancer 11/07/2023 Assessment & Plan (11/07/2023 11:31 AM [...] Encounters Date Type Department Care Team Description 07/07/2025 2:30 PM EST Office Visit [facility] [address] [place] [phone] Marianne Smith MD Type 2 diabetes mellitus with other specified complication, without long-term current use of insulin (HCC) (Primary Dx); Screening for colon cancer; Arthritis; Encounter for immunization 07/07/2025 Travel 07/01/2025 Refill [facility] [address], [place] [phone] Marianne Smith MD Essential hypertension; Type 2 diabetes mellitus with other specified complication, without long-term current use of insulin (HCC) 06/24/2025 Patient Outreach [facility] [address] [place] [phone] Marianne Smith MD Pre-visit Planning (SDOH screening completed on 03/11/2025) 06/12/2025 Refill [facility] [address] [place] [address] Marianne Smith MD Primary insomnia; Gastroesophageal reflux disease without esophagitis 05/26/2025 Refill [facility] [address] [place] [address] Marianne Smith MD 04/27/2025 Refill [facility] [address] [place] [address] Name, MD Braxton Primary osteoarthritis of left knee 04/18/2025 Telephone [facility] [address] [place] [address] Marianne Smith MD Durable Medical Equipment ([facility] [employer]: DME: Compression Socks) 04/10/2025 Refill [facility] [address] [place] [address] Marianne Smith MD Arthritis from Last 3 Months Immunizations Immunization Administration Dates Next Due Hep B, adult 12/04/2013, 1,11/02/2009,2009 Influenza Injectable Quadriv alant Preservative Free IIV4 MDCK 06/02/2023 Influenza injectable quadriv alent IIV4 with preservative 09/07/2017 Influenza injectable quadriv alent preservative free 06/24/2022,06/11/2021 Influenza, IIV3, injectable 07/21/2014, 1 Influenza, Split (incl. cabrera fied surface antigen) 04/23/2013 Influenza, seasonal, injecta ble, preservative free 07/07/2025 Moderna Covid-19 Vaccine 12+ 12/03/2020,11/06/19 21 Pneumococcal [...] Mass Index 29.45 07/07/2025 1:20 PM EST Plan of Treatment Health Maintenance Due Date Last Done Comments CT Colonography 1960 Colonoscopy 1960 Colorectal Cancer Screening 1960 FIT DNA/Cologuard 1961 FIT 1961 FOBT 1960 Sigmoidoscopy 1961 Alcohol/Substance Use Screening 1973 Diabetes: Urine Protein Screening 11/06/2024 07/07/2025, 11/07/2023, 03/25/2022 Lipid Panel 11/06/2024 07/07/2025, 09/2023, 03/25/2022, Additional history exists COVID-19 Vaccine (2024- season) 2025 12/03/2020, 11/05/2020 Diabetes: Foot Exam 04/17/2025 04/17/2024, 04/17/2024, 04/17/2024, Additional history exists Eye Exam 06/08/2025 06/08/2023, 09/2022, 06/08/2023, Additional history exists Mammogram 07/09/2025 07/09/2024, 06/07, 04/20/2021, Additional history exists Depression Screening 08/27/2025 08/27/2024, 08/27/19 25 Diabetes: Hemoglobin A1C 10/05/2025 025, 03/11/2025, 08/27/2024, Additional history exists Disability Screening 03/11/2026 03/11/2025 SDOH Screening 03/11/2026 03/11/2025 Cervical Cancer Screening 07/07/2026 HPV/Cotest 07/07/2026 07/07/2021 Pap Smear 07/07/2026 07/07/2021 Tobacco Screening 07/07/2026 07/07/2025 DTaP/Tdap/Td Vaccines (3 - Td or Tdap) 03/25/2032 03/25/2022, 10/27/2009 RSV Patients and Patients Aged 60 years or older (1 - 1-dose 75+ series) 2036 Hepatitis B Vaccines Completed 12/04/2013, 04/14/2011, 11/02/2009, Additional history exists Pneumococcal Vaccine: 50+ Years Completed 03/25/2022 Zoster Vaccines Completed 06/02/2023, 03/25/2022 HIV Screening Completed 11/07/2023 Hepatitis C Screening Completed 11/07/2023 Influenza Vaccine Completed 07/07/2025, , 06/24/2022, Additional history exists HIB Vaccines Aged Out No longer eligi [...] on patient's age to complete this topic Goals Goal Patient Goal Type Associated Problems [...] has diabetic neuropathy No Marianne Smith MD Procedures Procedure Name Priority Date/Time Associated Diagnosis [...] without long-term current use of insulin (HCC) URINALYSIS, COMPLETE, WITH REFLEX TO CULTURE Routine 07/07/2025 2:55 PM EST Type 2 diabetes mellitus with other specified complication, without long-term current use of insulin (HCC) TSH W/REFLEX TO FT4 Routine 07/07/2025 2 :55 PM EST Type 2 diabetes mellitus with other specified complication, without long-term current use of insulin (HCC) CBC WITH AUTO DIFFERENTIAL Routine 07/07/2025 2:55 PM EST Type 2 [...] without long-term current use of insulin (HCC) BI MAMMOGRAM SCREENING TOMOSYNTHESIS BILATERAL Routine 07/09/2024 [...] Relevant to Health Maintenance Results * (ABNORMAL) Urinalysis, Complete, with Reflex to Culture (07/07/2025 2:55 PM EST) Color Urine Yellow [facility] Appearance Urine Clear [facility] PH 5.5 5.0 - 9.0 [facility] Glucose Urine UA Negative Negative mg/dL [facility] Urine Blood Negative Negative [facility] Specific [place] - Urine 1.010 1.005 - 1.025 [facility] Urine Protein Negative Neg-Trace mg/dL [facility] Urine Ketones Negative Negative mg/dL [facility] Nitrite Urine Negative Negative [facility] Leukocyte Esterase Urine Small (1+)(A) Negative [facility] RBC Urine 0-2 0 - 2 /HPF [facility] Urine WBC 0-5 0 - 5 /HPF [facility] Urine Squamous Epithelial Cell 0-2 0 - 2 /HPF [facility] Urine Bacteria None Seen None Seen [facility] Hyaline Casts, Urine 0-2 0 - 2 /LPF [facility] Urine 07/07/2025 2:55 PM EST 07/07/2025 4:05 PM EST Narrative [facility] - 07/07/2025 4:43 PM EST Urine, Clean Catch Marianne Smith MD LAB URINE ORDERABLES Final Res ult Performing Organization Address [facility] Co de Phone Number [facility] [address] [place] [phone] * TSH W/Reflex to FT4 (07/07/2025 2:55 PM EST) TSH reflex Free T4 1.39 0.32 - 4.0 uIU/mL [facility] Blood Venous blood specimen / Unknown 07/07/2025 2:55 PM EST 07/07/2025 4:15 PM EST Marianne Smith MD LAB BLOOD ORDERABLES Final Res ult Performing Organization Address [facility] Phone Number [facility] [address] [place] [phone] * Albumin, Random Urine W/Creatinine (07/07/2025 2:55 PM EST) Creatinine, Urine 44.50 mg/dL [facility] Microalbumin Urine <5.0 mg/L [facility] Microalbum Creatinine Ratio Ur TNP <30 ug/mg cr [facility] Comment:Unable to calculate albumin/creatinine ratio due to lowmicroalbumin or creatinine result. Urine (Urine, Random) 07/07/2025 2:55 PM EST 07/07/2025 4:05 PM EST Marianne Smith MD LAB URINE ORDERABLES Final Res ult Performing Organization Address [facility] Co de Phone Number [facility] [address] [place] [phone] * (ABNORMAL) CBC auto differential (07/07/2025 2:55 PM EST) White Blood Count 11.7(H) 4.8 - 10.8 X10*3/uL [facility] Red Blood Count 4.91 4.20 - 5.50 X10*6/uL [facility] Hemoglobin 15.6 12.0 - 16.0 g/dl [facility] Hematocrit 46.3 37.0 - 47.0 % [facility] Mean Corpuscular Volume 94.3 80.0 - 98.0 fL [facility] Mean Corpuscular Hemoglobin 31.8 27.0 - 33.0 pg [facility] Mean Corpuscular HGB Conc 33.7 31.0 - 35.0 g/dl [facility] Red Cell Distribution Width 12.7 11.0 - 16.0 % [facility] Platelet Count 321 160 - 400 X10*3/uL [facility] Mean Platelet Volume 11.4 9.4 - 12.3 fL [facility] Neutrophils Percent Auto 52.3 45 - 73 % [facility] Imm Gran Pct Auto 0.5(H) 0.0 - 0.4 % [facility] Lymphocytes Percent Auto 37.7 20 - 40 % [facility] Monocytes Percent Auto 6.0 2 - 11 % [facility] Eosinophils Percent Auto 2.4 0 - 4 % [facility] Basophils Percent Auto 1.1 0 - 2 % [facility] NRBC Pct Auto 0.0 0.0 - 0.2 /100WBC [facility] Neutrophils Absolute Auto 6.1 2.0 - 8.3 x10*3/uL [facility] Imm Gran Abs Auto 0.06(H) 0.00 - 0.03 X10*3/uL [facility] Lymphocytes Absolute Auto 4.4 1.2 - 4.9 X10*3/uL [facility] Monocytes Absolute Auto 0.7 0.1 - 1.2 X10*3/uL [facility] Eosinophils Absolute Auto 0.3 0.0 - 0.4 X10*3/uL [facility] Basophils Absolute Auto 0.1 0.0 - 0.2 X10*3/uL [facility] NRBC Abs Auto 0.000 0.0 - 0.012 X10*3/uL [facility] Blood Venous blood specimen / Unknown 07/07/2025 2:55 PM EST 07/07/2025 4:15 PM EST Marianne Smith MD LAB BLOOD ORDERABLES Final Res ult Performing Organization Address City/[facility] Co de Phone Number [facility] [address] [place] [phone] * (ABNORMAL) Lipid Panel, Standard (07/07/2025 2:55 PM EST) Triglycerides 446(H) <150 mg/dL [facility] Comment:Slight Lipemia.Robby able Triglyceride: less than 150 mg/dLBorderline High Triglyceride 150-199 mg/dLHigh Triglyceride: 200-499 mg/dLVery High Triglyceride: greater than or equal to 5OO mg/dL Cholesterol 199 <200 mg/dL [facility] Comment:Desirable Cholestero l: less than 200 mg/dLBorderline High Cholesterol: 200-239 mg/dLHigh Cholesterol: greater than 239 mg/dL LDL Cholesterol Calculated TNP <100 mg/dL [facility] Comment:Unable to calculate the LDL. The formula of Friedwald,Christopher, and Adeola is only valid if the triglycerides areless than 400 mg/dl. HDL Cholesterol 38(L) >40 mg/dL [facility] Comment:Desirable HDL: great er than 40 mg/dL Note: This HDL assay may give artificially low results in patients with liver disease. Blood Venous blood specimen / Unknown 07/07/2025 2:55 PM EST 07/07/2025 4:15 PM EST Marianne Smith MD LAB BLOOD ORDERABLES Final Res ult [facility] [address] [place] [phone] * (ABNORMAL) Comprehensive Metabolic Panel (07/07/2025 2:55 PM EST) Sodium 141 135 - 145 mmol/L [facility] Potassium 4.6 3.3 - 5.1 mmol/L [facility] Chloride 105 96 - 108 mmol/L [facility] Carbon Dioxide 29 22 - 29 mmol/L [facility] Anion Gap 12 12 - 20 [facility] Urea Nitrogen (BUN) 14 9 - 16 mg/dL [facility] Creatinine, Serum 0.65 0.5 - 1.4 mg/dL [facility] Estimated Glomerular Filt Rate >60 [facility] Comment:Chronic Kidney Disea se: Estimated GFR < 60 mL/min/1.31m1Ztsscp Kidney Disease: Estimated GFR < 15 mL/min/1.73m2 Glucose 115 60 - 115 mg/dL [facility] Calcium 10.1 8.4 - 10.2 mg/dL [facility] Bilirubin, Total 0.6 0.0 - 1.0 mg/dL [facility] Aspartate Amino Transferase 25 5 - 31 U/L [facility] Alanine Aminotransferase 39(H) 0 - 31 U/L [facility] Total Protein 7.5 6.5 - 8.0 g/dL [facility] Albumin Level 4.7 3.5 - 5.0 g/dL [facility] Alkaline Phosphatase 133(H) 39 - 117 U/L [facility] Blood Venous blood specimen / Unknown 07/07/2025 2:55 PM EST 07/07/2025 4:15 PM EST us Marianne Smith MD LAB BLOOD ORDERABLES Final Res ult Performing Organization Address [facility]/ZIP Co de Phone Number [facility] [address] [place] [phone] * (ABNORMAL) POCT Hgb A1c (07/07/2025 [...] AM EST Narrative 07/15/2024 5:28 PM EST [facility] [address] [place] [place] [address] Mammography Report Signed Patient: Summer Ruiz MR#: [id number] : 1960 Acct:[id number] Age/Sex: 64 / F ADM Date: 07/09/24 Loc: HO.MAMMO Attending Dr: Marianne Smith MD Ordering Physician: Marianne Smith Results: 1Negative Date of Service: 07/09/24 Follow Up: 1 Year From Orig inal Mammogram Procedure(s): MM tomosynthesis screening BI Accession Number(s): [id number] cc: Marianne Smith EXAMINATION: MM SCREENING DIGITAL [...] Radha Narvaez DO 07/15/2024 05:25 PM EST Dictated By: Radha Narvaez DO Signed By: <Electronically signed by Radha Narvaez DO in OV> 07/15/24 1725 DD/ 1030 TD/TT: 07/09/24 1048 Automobile 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 [place], [place] [address] Mammography Report Signed Patient: Zuleika Ruiz#: [id number] : 1960cct:[id number] Age/Sex: 64 / FADM Date: 07/09/24 Loc: KathiMAMMO Attending Dr: Marianne Smith MD Ordering Physician: Nayana Smithults: 1Negative Date of Service: 07/09/24Follow Up: 1 Year From Orig ina Mammogram Procedure(s): MM tomosynthesis screening BI Accession Number(s): [id number] cc: Marianne Smith EXAMINATION: MM SCREENING DIGITAL [...] Radha Narvaez DO 07/15/2024 05:25 PM EST Dictated By: Radha Narvaez DO Signed By: <Electronically signed by Radha Narvaez DO in OV> 07/15/24 1725 DD/ 1030 TD/TT: 07/09/24 1048 Automobile Upholstery Trim Installer: Marianne Smith MD IMG BI PROCEDURES Final Result * Hepatitis C Antibody with Reflex to HCV, RNA, Quantitative, Real-Time PCR (11/07/2023 11:48 AM EDT) Hepatitis C Antibody Nonreactive Nonreactive [facility] Comment:Antibodies to HCV no t detected; does not exclude early acuteHCV infection. Blood Venous blood specimen / Unknown 11/07/2023 11:48 AM EDT 11/07/2023 6:56 PM EDT Marianne Smith MD LAB BLOOD ORDERABLES Final Res ult [facility] [address] [place] [phone] * HIV-1/2 Antigen and Antibodies, Fourth Generation, with Reflexes (11/07/2023 11:48 AM EDT) HIV AB/AG Nonreactive Nonreactive [facility] Comment:HIV-1 p24 Ag and/or HIV-1/HIV-2 Ab not detected.A test result that is nonreactive does not exclude thepossibility of exposure to or infection with HIV-1 and/orHIV-2. Nonreactive results in this assay for individualswith prior exposure to HIV-1 and/or HIV-2 may be due toantigen and antibody levels that are below the limit ofdetection of this assay.The [employer] HIV Ag/Ab Combo assay result andsupplemental assay results should be interpreted inconjunction with the patient's clinical presentation,history and other laboratory results. If the results areinconsistent with clinical evidence, additional testing issuggested to confirm the result. Blood Venous blood specimen / Unknown 11/07/2023 11:48 AM EDT 11/07/2023 6:56 PM EDT Marianne Smith MD LAB BLOOD ORDERABLES Final Res ult [facility] [address] [place] [phone] * THINPREP TIS PAP (07/07/2021 7:53 [...] along with historic and current clinical information. Comment: This Pap test has been evaluated with computer assisted technology. [facility] Telegraph Installer : SEE COMMENT [facility] Comment: RMM, CT(ASCP) CT screening location: [address] [address] Interpretation/R esult: Negative for intraepithelial lesion or malignancy. [facility] LMP: NONE [facility] Prev. BX: NONE [facility] Prev. PAP: NONE [facility] SOURCE: None given [facility] Statement Of Adequacy: SEE COMMENT [facility] Comment: Satisfactory for evaluation. Endocervical/transformation zone component present. 07/07/2021 7:53 AM EST Marianne Smith MD LAB PATHOLOGY ORDERABLES Final Result Performing Organization Address [facility] de Phone Number [facility] [address] [place] [address], * HPV mRNA E6/E7 REFLEX TO HPV 16, 18/45 (07/07/2021 7:53 AM EST) HPV nRNA E6/E7 Not Detected Not Detected [facility] Comment: Methodology: Tube Sizer Operator-Mediated Amplification This assay detects E6/E7 viral messenger RNA (mRNA) from 14 high-risk HPV types (16,18,31,33,35,39,45,51,52,56,58,59,66,68). The analytical performance characteristics of this assay have been determined by [employer]. The modifications have not been cleared or approved by the FDA. This assay has been validated pursuant to the CLIA regulations and is used for clinical purposes. For additional information, please refer to http://education.[employer]/faq/RXI196i8 (This link if provided for information/ educational purposes only.) NO COLLECTION DATE RECEIVED. WE HAVE USED THE DATE THE SPECIMEN WAS RECEIVED BY THIS LABORATORY THE COLLECTION DATE. IF THIS IS INCORRECT, PLEASE CONTACT CLIENT SERVICES. PHONE NUMBER: 07/07/2021 7:53 AM EST us Marianne Smith MD LAB CYTOLOGY ORDERABLES Final Result Performing Organization Address [facility] de Phone Number [facility] [address] from Last 3 Months or Most Recently Relevant to Health Maintenance Additional Health Concerns Active Problems Noted Date [...] neuropathy 07/06/2025 Patient has diabetic neuropathy 07/06/2025 Insurance [facility] < [address] [place] [phone] Care Teams Retail Center Receptionist Relationship Specialty Start Date End Date Marianne Smith MD [address] [place] [phone] PCP - General Family Medicine 03/30/21
--- OUTSIDE RECORDS SUMMARY | 2025-07-07 17:50 | XMS_ITS | Encounter Summary ---
Author Organization [email or web address] Address [address] [facility] [address] [place] [address] Care Team Providers Care Laborer [employer] Name Role Phone Marianne Smith MD Primary Care Provider [phone] Reason for Visit * Reason Onset Date Comments Durable Medical Equipment 09/29/2022 Encounter Details Date Type Department Care Team ([facility] st Contact Info) Description 09/29/2022 Telephone [facility] [address] [place], [place] [phone] Marianne Smith MD [address] [place], [place] [phone] Durable Medical Equipment Social History Tobacco Use [...] script to be emailed to her at [email or web address] Please contact malena at [phone] documented in this encounter Plan of Treatment Not on file documented as of this encounter Visit Diagnoses Not on filedocumented in this encounter Care Teams Laborer [employer] Relationship Specialty Start Date End Date Marianne Smith MD [address] [place] [phone] PCP - General Family Medicine 03/30/21 documented as of this encounter
== END 2025-07-07 14:33 | disposition home or self-care (01) ==
LOC: HO.HHCL 14:32
PROVIDERS: PCP General Practice; Visit Provider General Practice
DX: E11.69 Type 2 diabetes mellitus with other specified complication (principal)
CPT/HCPCS: 36415; 80053; 80061; 81001; 82043; 82570; 84443; 85025; 87086

== ENCOUNTER 2025-07-15 10:22 | Outpatient (REF) | payer OTHER, SELFPAY ==
--- NOTE | ~2025-07-15 | MM_ITS ---
EXAMINATION: MM SCREENING DIGITAL BREAST TOMOSYNTHESIS, BILATERAL CLINICAL INFORMATION: Screening. Asymptomatic. COMPARISON: Comparison made to multiple prior, most recent July 09, 2024, and most remote December 04, 2012. TECHNIQUE: Digital breast tomosynthesis is performed in mediolateral oblique and craniocaudal views along with computer-aided detection (CAD). Synthesized 2D images are generated from the tomosynthesis. FINDINGS: BREAST COMPOSITION: There are scattered areas of fibroglandular density. BILATERAL BREASTS: No significant masses, suspicious calcifications or other abnormalities are seen in either breast. MM/MM tomosynthesis screening BI IMPRESSION: BILATERAL BREASTS: Negative, no mammographic evidence of malignancy. Normal interval follow-up is recommended in 12 months. ASSESSMENT: BI-RADS: Category 1: Negative RECOMMENDATION: Routine annual mammography screening. FOLLOW-UP: 1 year F/U This examination should not preclude the clinical evaluation of a suspicious palpable abnormality. This patient's information was entered into a reminder system with a target due date for their next mammogram. Electronically signed by: Peyton Marina MD 07/16/2025 06:07 PM [facility]
== END 2025-07-15 10:23 | disposition home or self-care (01) ==
LOC: HO.MAMMO 10:22
PROVIDERS: PCP General Practice; Visit Provider General Practice
DX: Z12.31 Encounter for screening mammogram for malignant neoplasm of breast (principal)
CPT/HCPCS: 77063; 77067

== ENCOUNTER → 2025-07-15 10:45 | Outpatient (BNV) | payer OTHER, SELFPAY | PROVIDERS: PCP General Practice; Visit Provider Radiology Body Imaging | DX: Z12.31 Encounter for screening mammogram for malignant neoplasm of breast (principal) | CPT/HCPCS: 77063; 77067 ==